=== PATIENT | female | born 1960 | race Caucasian/White ===

== ENCOUNTER → 2016-07-04 | Outpatient (CLI) | payer BC ==
--- NOTE | 2016-07-04 21:35 | CONS ---
DATE OF CONSULTATION: 07/04/2016 This patient is a 56-year-old lady who has been evaluated in the sleep center for awakenings from sleep and difficulties falling asleep again and snoring. HISTORY OF PRESENT ILLNESS/SLEEP-WAKE EVALUATION: Patient's usual sleep schedule is from 10 or 11 p.m. until 5:30 or 6 a.m. on weekdays, and from around 11 to 12 midnight until 8 or 9 a.m. on weekends. Sometimes patient has problems with falling asleep, but usually not. No TV in bedroom. Then in the middle of the night patient wakes up and cannot fall asleep again. According to her mother, she snores, has nocturia, grinding teeth. In the past patient has a history of sleeptalking and sleepwalking when she was a child. She may experience back discomfort and acid reflux. Also she has 2 dogs in her house who wake her up from sleep. No history of hypnagogic hallucinations, sleep paralysis or cataplexy. In the morning patient wakes up tired, has problems paying attention during the day. [place] Sleepiness Scale is 7. Past medical history is positive for: 1. Anxiety. 2. Brigette-Swann syndrome. 3. Hyperlipidemia. 4. Iron deficiency anemia. 5. Thyroid resection for benign nodule with apparently hypothyroidism. 6. Status post oophorectomy. 7. Menopause since age of 27. 8. History of sinusitis. PLAN: 1. Polysomnography for evaluation of patient's breathing during sleep. 2. CPAP/BiPAP titration if sleep study confirms obstructive sleep apnea-hypopnea syndrome. 3. Preferable position during sleep on the side. 4. No driving if patient feels any sleepiness. Patient is aware of civil and criminal liability for unsafe driving. 5. I will see patient for follow-up visit to explain results of the testing and following plan. 6. Stimulus control. 7. Paradoxical intention. 8. Worry time. 9. No watching clock during sleep for treatment of possible insomnia. Thank you very much for referring this patient for consultation. Sincerely, Kuldeep Tucker MD, PhD, FAASM. Diplomat of [place] [employer], Sleep Medicine Board by [place] [employer] [place] [employer] Medicine Clinical Support Manager of [facility] [place]
--- NOTE | 2016-07-04 21:48 | CONS ---
ADDENDUM: MEDICATIONS: 1. Vitamin D3. 2. Synthroid. 3. Sertraline. 4. Omeprazole. 5. Pepcid. 6. Restasis. 7. Potassium supplement. 8. Ibuprofen. 9. Calcium supplement. 10. Loratadine. 11. Alprazolam. 12. Melatonin. 13. She was on iron supplement. Presently, it was stopped. PHYSICAL EXAMINATION: GENERAL: A 56-year-old lady without distress. VITAL SIGNS: BP 135/65, HR 58, RR 16. Height 5 foot 4 inches, weight 147, BMI 25.2. Neck 13-1/2 inches in circumference. Temperature 97.9. Oxygen saturation at room air 96%. HEENT: PERRLA, EOMI. Evaluation of oropharynx showed tongue protrudes midline. Extremely low position of soft palate. NECK: Supple. No JVD. Thyroid is not palpable. LUNGS: Clear to percussion and to auscultation. Good air exchange. No wheezing or rhonchi. HEART: S1, S2 regular. No murmurs, gallops or rubs. ABDOMEN: Soft and nontender. Bowel sounds are present. No organomegaly appreciated. EXTREMITIES: No clubbing or cyanosis. PROCESS EXPERT: Awake, alert, and oriented x3. Cranial nerves 2 to 7 intact. There is no fasciculation or atrophy noted. No focal deficits observed. IMPRESSION: 1. Snoring, awakenings in the middle of the night, extremely low position of soft palate, awakenings with tiredness, difficulties to pay attention during the day, problem with memory, obstructive sleep apnea/hypopnea syndrome. 2. Difficulties to re-initiate sleep after awakenings in the middle of the night. 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 3. Hypothyroidism. 4. Brigette-Swann syndrome. 5. Hyperlipidemia. PLAN: 1. Polysomnography for evaluation of patient's breathing during sleep. 2. CPAP/BiPAP titration if sleep study confirms obstructive sleep apnea-hypopnea syndrome. 3. Preferable position during sleep on the side. 4. No driving if patient feels any sleepiness. Patient is aware of civil and criminal liability for unsafe driving. 5. I will see patient for follow-up visit to explain results of the testing and following plan. Thank you very much for allowing me to participate in the management of your patient. Sincerely, Kuldeep Tucker MD, PhD, FAASM. Diplomat of [place] [employer] Medicine, Sleep Medicine Board by [place] [employer] [place] [employer] Medicine Button Grader of [facility] [place]
--- NOTE | 2016-07-12 09:03 | CONS ---
DATE OF CONSULTATION: 07/04/2016 This patient is a 56-year-old lady who has been evaluated in the sleep center for awakenings from sleep and difficulties falling asleep again and snoring. HISTORY OF PRESENT ILLNESS/SLEEP-WAKE EVALUATION: Patient's usual sleep schedule is from 10 or 11 p.m. until 5:30 or 6 a.m. on weekdays, and from around 11 to 12 midnight until 8 or 9 a.m. on weekends. Sometimes patient has problems with falling asleep, but usually not. No TV in bedroom. Then in the middle of the night patient wakes up and cannot fall asleep again. According to her mother, she snores, has nocturia, grinding teeth. In the past patient has a history of sleeptalking and sleepwalking when she was a child. She may experience back discomfort and acid reflux. Also she has 2 dogs in her house who wake her up from sleep. No history of hypnagogic hallucinations, sleep paralysis or cataplexy. In the morning patient wakes up tired, has problems paying attention during the day. [place] Sleepiness Scale is 7. Past medical history is positive for: 1. Anxiety. 2. Brigette-Swann syndrome. 3. Hyperlipidemia. 4. Iron deficiency anemia. 5. Thyroid resection for benign nodule with apparently hypothyroidism. 6. Status post oophorectomy. 7. Menopause since age of 27. 8. History of sinusitis. MEDICATIONS: 1. Vitamin D3. 2. Synthroid. 3. Sertraline. 4. Omeprazole. 5. Pepcid. 6. Restasis. 7. Potassium supplement. 8. Ibuprofen. 9. Calcium supplement. 10. Loratadine. 11. Alprazolam. 12. Melatonin. 13. She was on iron supplement. Presently, it was stopped. PHYSICAL EXAMINATION: GENERAL: A 56-year-old lady without distress. VITAL SIGNS: BP 135/65, HR 58, RR 16. Height 5 foot 4 inches, weight 147, BMI 25.2. Neck 13-1/2 inches in circumference. Temperature 97.9. Oxygen saturation at room air 96%. HEENT: PERRLA, EOMI. Evaluation of oropharynx showed tongue protrudes midline. Extremely low position of soft palate. NECK: Supple. No JVD. Thyroid is not palpable. LUNGS: Clear to percussion and to auscultation. Good air exchange. No wheezing or rhonchi. HEART: S1, S2 regular. No murmurs, gallops or rubs. ABDOMEN: Soft and nontender. Bowel sounds are present. No organomegaly appreciated. EXTREMITIES: No clubbing or cyanosis. HAND BINDER STRIPPER: Awake, alert, and oriented x3. Cranial nerves 2 to 7 intact. There is no fasciculation or atrophy noted. No focal deficits observed. IMPRESSION: 1. Snoring, awakenings in the middle of the night, extremely low position of soft palate, awakenings with tiredness, difficulties to pay attention during the day, problem with memory, obstructive sleep apnea/hypopnea syndrome. 2. Difficulties to re-initiate sleep after awakenings in the middle of the night. 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 3. Hypothyroidism. 4. Brigette-Swann syndrome. 5. Hyperlipidemia. PLAN: 1. Polysomnography for evaluation of patient's breathing during sleep. 2. CPAP/BiPAP titration if sleep study confirms obstructive sleep apnea-hypopnea syndrome. 3. Preferable position during sleep on the side. 4. No driving if patient feels any sleepiness. Patient is aware of civil and criminal liability for unsafe driving. 5. I will see patient for follow-up visit to explain results of the testing and following plan. 6. Stimulus control. 7. Paradoxical intention. 8. Worry time. 9. No watching clock during sleep for treatment of possible insomnia. Thank you very much for referring this patient for consultation. uKldeep Tucker MD, PhD, FAASM. Diplomat of [place] [employer], Sleep Medicine Board by [place] [employer] [place] [employer] International Marketing Specialist of [facility] [place]
== END | disposition home or self-care (01) ==
LOC: SLEEP 16:19
PROVIDERS: ATTEND Internal Medicine
DX: G47.33 Obstructive sleep apnea (adult) (pediatric) (principal); G47.00 Insomnia, unspecified; E03.9 Hypothyroidism, unspecified; B27.00 Gammaherpesviral mononucleosis without complication; E78.5 Hyperlipidemia, unspecified; F41.9 Anxiety disorder, unspecified; Z90.722 Acquired absence of ovaries, bilateral; Z79.899 Other long term (current) drug therapy
CPT/HCPCS: 99211

== ENCOUNTER → 2016-09-12 | Outpatient (CLI) | payer BC ==
--- NOTE | 2016-09-12 22:48 | PN ---
DATE OF SERVICE: 09/12/2016 56-year-old lady who has been followed in the sleep center for treatment of obstructive sleep apnea-hypopnea syndrome. Recently patient had a diagnostic sleep study and I discussed results of the sleep study with the patient. Total apnea-hypopnea index during home sleep apnea test was 6.8 with lowest oxygen level 89%. Subsequently patient was started on treatment with auto Pap machine and she is able to use machine without significant problems. Sometimes she may take her mask off in the second part of the night, but otherwise she is able to use equipment. I checked her CPAP machine. Average pressure is 10.4. Patient using a 28 out of 30 nights for more than 4 hours. Average usage 6.6 hours. Leak from the mask is up to 5 L/min, which is normal acceptable range. REM time in automatic regimen humidity level is 4 presently. [place] Sleepiness Scale today is 5. MEDICATIONS: 1. Synthroid. 2. Ibuprofen. 3. Vitamin D. 4. Omeprazole. 5. Famotidine. 6. Restoril. 7. Xanax on p.r.n. basis. During physical exam, the patient in no distress. BP 123/80, HR 62, RR 16. Weight 147. Temperature 97.8. Oxygen saturation at room air 98%. HEENT: PERRLA, EOMI oropharynx low position of soft palate. Neck: Supple. No JVD. Thyroid is not palpable. LUNGS: Clear to percussion and to auscultation. Good air exchange. No wheezing or rhonchi. HEART: S1, S2 regular. No murmurs, gallops, or rubs. ABDOMEN: Soft and nontender. Bowel sounds are present. No organomegaly appreciated. EXTREMITIES: No clubbing or cyanosis. CHEMICAL DEPENDENCY THERAPIST: Awake, alert, and oriented x3. Cranial nerves 2 to 7 intact. There is no fasciculation or atrophy noted. No focal deficits observed. IMPRESSION: 1. Obstructive sleep apnea/hypopnea syndrome on control with CPAP. Patient demonstrated good compliance with treatment, benefiting from treatment. 2. Hypothyroid. 3. Acid reflux. 4. Anxiety. 5. Back problems. 6. Depression. PLAN: 1. Patient will continue to use her CPAP equipment every night for the whole night. 2. Prescription for all necessary CPAP supplies. We may consider to use nasal pillows. 3. Sleep hygiene with regular time in bed for at least 8 hours. 4. No driving if feeling any sleepiness. Thank you very much for allowing me to participate in the management your patient. Sincerely, Kuldeep Tucker MD, PhD, FAASM. Diplomat of [place] [employer] Medicine, Sleep Medicine Board by [place] [employer] [place] [employer] Medicine Cage Loader of [facility] [place]
== END | disposition home or self-care (01) ==
LOC: SLEEP 16:25
PROVIDERS: ATTEND Internal Medicine
DX: G47.33 Obstructive sleep apnea (adult) (pediatric) (principal); E03.9 Hypothyroidism, unspecified; K21.9 Gastro-esophageal reflux disease without esophagitis; F41.9 Anxiety disorder, unspecified; F32.9 Major depressive disorder, single episode, unspecified; Z79.899 Other long term (current) drug therapy

== ENCOUNTER → 2016-11-25 | Outpatient (CLI) | payer BC | END | disposition home or self-care (01) | LOC: LABWHC1 07:12 | PROVIDERS: ATTEND Internal Medicine Endocrinology, Diabetes & Metabolism | DX: E89.0 Postprocedural hypothyroidism (principal); E55.9 Vitamin D deficiency, unspecified | CPT/HCPCS: 36415; 82306; 84439; 84443 ==

== ENCOUNTER → 2017-01-30 | Outpatient (CLI) | payer BC | END | disposition home or self-care (01) | LOC: LABWHC1 13:42 | PROVIDERS: ATTEND Internal Medicine Endocrinology, Diabetes & Metabolism | DX: E55.9 Vitamin D deficiency, unspecified (principal); E89.0 Postprocedural hypothyroidism | CPT/HCPCS: 36415; 82306; 84439; 84443 ==

== ENCOUNTER → 2017-05-13 | Outpatient (CLI) | payer BC | END | disposition home or self-care (01) | LOC: LABWHC1 07:14 | PROVIDERS: ATTEND Internal Medicine Endocrinology, Diabetes & Metabolism | DX: E55.9 Vitamin D deficiency, unspecified (principal); E89.0 Postprocedural hypothyroidism | CPT/HCPCS: 36415; 82306; 84439; 84443 ==

== ENCOUNTER → 2017-06-24 | Outpatient (CLI) | payer BC ==
--- NOTE | 2017-06-25 09:29 | MM ---
Reason for exam: screening (asymptomatic). Last mammogram was performed 1 year ago. History: Patient is postmenopausal and is nulliparous. Took estrogen for 15 years. Took progesterone for 15 years. Physical Findings: A clinical breast exam by your physician is recommended on an annual basis and results should be correlated with mammographic findings. MG Screening Mammo w CAD Bilateral CC and MLO view(s) were taken. Prior study comparison: June 18, 2016, bilateral MG 3d screening mammo w/cad. June 13, 2015, bilateral MG screening mammo w CAD. There are scattered fibroglandular densities. No significant changes when compared with prior studies. ASSESSMENT: Benign, BI-RAD 2 RECOMMENDATION: Routine screening mammogram of both breasts in 1 year.
== END | disposition home or self-care (01) ==
LOC: RADMAMWWP 08:04
PROVIDERS: ATTEND Obstetrics & Gynecology
DX: Z12.31 Encounter for screening mammogram for malignant neoplasm of breast (principal)
CPT/HCPCS: 77067

== ENCOUNTER → 2017-09-18 | Outpatient (CLI) | payer BC ==
--- NOTE | 2017-09-18 18:30 | PN ---
PROGRESS NOTE DATE OF SERVICE: 09/18/2017 This patient is a 57-year-old lady who has been followed in the sleep center for treatment of obstructive sleep apnea-hypopnea syndrome. The patient successfully is continuing to use her CPAP equipment without significant problems. [place] Sleepiness Scale today is 7. I checked her CPAP unit. Usage is every night with average usage 5.1 hours. Usage for more than 4 hours is in the range of 70% of the time. Most of the time pressure is in the range of 9.5 cm of water. Range of the pressure is from 5-12. Leak is only 5 L/minute. Apnea-hypopnea index is only 1.2, which is totally perfect. MEDICATIONS: 1. Celexa. 2. Iron supplement. 3. Restasis. 4. B12. 5. Potassium supplement. 6. Multivitamins. PHYSICAL EXAMINATION: GENERAL A pleasant woman in no distress. VITAL SIGNS: BP 138/73, HR 56, RR 16, height 5 feet 4 inches, weight 151, BMI 25.9, temperature 97.6, oxygen saturation at room air 94%. HEENT: PERRLA, EOMI. Evaluation of oropharynx showed tongue protrudes midline; low position of soft palate. NECK: Supple. No JVD. Thyroid is not palpable. LUNGS: Clear to percussion and to auscultation. Good air exchange. No wheezing or rhonchi. HEART: S1, S2 regular. No murmurs, gallops or rubs. ABDOMEN: Soft and nontender. Bowel sounds are present. No organomegaly appreciated. EXTREMITIES : No clubbing or cyanosis. DIRECTOR OF OUTSIDE SALES: Awake, alert, and oriented X3. Cranial nerves 2 to 7 intact. There is no fasciculation or atrophy. noted. No focal deficits observed. IMPRESSION: 1. Obstructive sleep apnea-hypopnea syndrome, controlled with CPAP, average pressure 9.5 cm of water. Patient demonstrated good compliance with treatment and is benefitting from treatment. 2. History of depression. 3. Hypothyroidism. 4. Acid reflux. 5. History of anxiety. 6. Back problems. PLAN: 1. Continue treatment with CPAP with the same regimen every night for the whole night. 2. Prescription for all necessary CPAP supplies, including mask, tube, filters. 3. Watching weight. 4. No driving if feeling any sleepiness. 5. Follow-up visit in one year or earlier if patient has any problems. Thank you very much for allowing me to participate in the management of your patient. Sincerely, Kuldeep Tucker MD, PhD, FAASM Diplomat of [place] Special[employer] Board of Internal Medicine Storeroom Keeper of [facility] [place] MMFRANCOISE / URIEL: [id number] /
== END | disposition home or self-care (01) ==
LOC: SLEEP 16:21
PROVIDERS: ATTEND Internal Medicine
DX: G47.33 Obstructive sleep apnea (adult) (pediatric) (principal); E78.5 Hyperlipidemia, unspecified; K21.9 Gastro-esophageal reflux disease without esophagitis; M79.89 Other specified soft tissue disorders; Z99.89 Dependence on other enabling machines and devices; Z79.899 Other long term (current) drug therapy; Z86.59 Personal history of other mental and behavioral disorders

== ENCOUNTER → 2017-09-19 | Outpatient (CLI) | payer BC ==
--- NOTE | 2017-09-19 12:40 | ECHOS ---
STRESS ECHOCARDIOGRAM DATE OF SERVICE: 09/19/2017 INDICATIONS: Chest pain. MEDICATIONS: BASELINE HEART RATE: 66 BASELINE BLOOD PRESSURE: 90/47 MAXIMUM HEART RATE: 142 MAXIMUM BLOOD PRESSURE: 148/71 85% MPHR: 137 100% MPHR: 161 METS: 10.1 MAXIMUM STAGE REACHED: III TOTAL EXERCISE TIME: 9 minutes CLINICAL INFORMATION: Baseline EKG revealed a sinus mechanism without significant ST-T changes. There was some baseline artifact noted. Patient walked on a standard Rodriguez protocol for 9 minutes, achieved a maximum heart rate of 142 beats per minute which is more than 85% of predicted maximal. Developed fatigue and shortness of breath. EKG did not reveal any ST-segment changes to indicate ischemia. This is a negative stress test by EKG criteria. Baseline echo images revealed normal wall motion and wall thickening of all segments. At peak exercise, there was good augmentation of left ventricular wall motion and wall thickening of all segments suggesting that there is no evidence of any stress-induced ischemia on this study. IMPRESSION: 1. Fair exercise capacity with a negative stress test by EKG criteria. 2. Normal stress echocardiogram. MMODL / IJN: [id number] /
== END | disposition home or self-care (01) ==
LOC: RADNMMAIN 09:41
PROVIDERS: ATTEND Family Medicine
DX: R07.89 Other chest pain (principal)
CPT/HCPCS: 93017; 93350

== ENCOUNTER 2017-09-30 17:05 | Observation (INO) | payer BC ==
[2017-09-30] MEDS ORDERED: SODIUM CHLORIDE 0.9% 1,000 ML IV STA (17:40)
[2017-09-30] MEDS ORDERED: RX INFO: IV CONTRAST WAS GIVEN 1 EACH MISC MISCELLANE PRN (17:40)
--- NOTE | 2017-09-30 17:45 | ED ---
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 She believes it lasted only short period time she has been having episodes recently of mixing up words up for last month she did state she saw her doctor by week ago some EKG changes were noted that indicated enlargement left side of the heart stress test was done and apparently it looked normal. She complains some lightheadedness and blurred vision along with the symptoms today. She also states recently she's had some discomfort in the left side of her head she describes as tension tightness perhaps some achiness. She also is been tired recently no fevers chills nausea vomiting sweats no other symptoms reported at this time. No other modifying factors. She has no prior history of strokes or heart disease she has of a history of secondhand smoke exposure with very brief primary smoke exposure - Related Data Home Medications: Home Medications Medication Instructions Recorded Confirmed ALPRAZolam [Xanax] 0.25 mg PO DAILY PRN 09/30/17 09/30/17 Cholecalciferol [Vitamin D3] 5,000 unit PO DAILY 09/30/17 09/30/17 Citalopram Hydrobromide [CeleXA] 20 mg PO HS 09/30/17 09/30/17 Famotidine [Pepcid] 20 mg PO DAILY 09/30/17 09/30/17 Ferrous Sulfate [Feosol] 325 mg PO DAILY 09/30/17 09/30/17 Ginkgo Biloba 500 mg PO DAILY 09/30/17 09/30/17 Ibuprofen [Motrin Ib] 600 mg PO TID PRN 09/30/17 09/30/17 Levothyroxine Sodium [Synthroid] 100 mcg PO DAILY 09/30/17 09/30/17 Multivitamins, Thera [Multivitamin 1 tab PO DAILY 09/30/17 09/30/17 (formulary)] Omeprazole 20 mg PO HS 09/30/17 09/30/17 Potassium Citrate [Potassium 10 meq PO DAILY 09/30/17 09/30/17 Citrate ER] Vitamin B Complex 1 cap PO DAILY 09/30/17 09/30/17 cycloSPORINE 0.05% OPHTH SOLN 1 applicator BOTH EYES BID 09/30/17 09/30/17 [Restasis] Allergies/Adverse Reactions: Allergies Allergy/AdvReac Type Severity Reaction Status Date / Time No Known Allergies Allergy Verified 09/30/17 18:04 Review of Systems ROS Statement: Those systems with pertinent positive or pertinent negative responses have been documented in the HPI. ROS Other: All systems not noted in ROS Statement are negative. General Exam - General Exam Comments Initial Comments: This is a well-developed well-nourished awake alert oriented 3 female Limitations: no limitations General appearance: alert, in no apparent distress Head exam: Present: atraumatic, normocephalic, normal inspection Eye exam: Present: normal appearance, PERRL, EOMI. Absent: scleral icterus, conjunctival injection, periorbital swelling ENT exam: Present: normal exam, mucous membranes moist Neck exam: Present: normal inspection. Absent: tenderness, meningismus, lymphadenopathy Respiratory exam: Present: normal lung sounds bilaterally. Absent: respiratory distress, wheezes, rales, rhonchi, stridor Cardiovascular Exam: Present: regular rate, normal rhythm, normal heart sounds. Absent: systolic murmur, diastolic murmur, rubs, gallop, clicks GI/Abdominal exam: Present: soft, normal bowel sounds. Absent: distended, tenderness, guarding, rebound, rigid Extremities exam: Present: normal inspection, full ROM, normal capillary refill. Absent: tenderness, pedal edema, joint swelling, calf tenderness Back exam: Present: normal inspection Neurological exam: Present: alert, oriented X3, CN II-XII intact Psychiatric exam: Present: normal affect, normal mood Skin exam: Present: warm, dry, intact, normal color. Absent: rash Stroke MDM - Lab Data Result diagrams: 09/30/17 17:35 09/30/17 17:35 Lab Results 09/30/17 09/30/17 09/30/17 Range/Units 17:35 17:35 17:35 WBC 4.8 (3.8-10.6) k/uL RBC 4.30 (3.80-5.40) m/uL Hgb 12.5 (11.4-16.0) gm/dL Hct 36.2 (34.0-46.0) % MCV 84.1 (80.0-100.0) fL MCH 29.1 (25.0-35.0) pg MCHC 34.5 (31.0-37.0) g/dL RDW 12.6 (11.5-15.5) % Plt Count 268 (150-450) k/uL Neutrophils % 47 % Lymphocytes % 38 % Monocytes % 8 % Eosinophils % 3 % Basophils % 1 % Neutrophils # 2.3 (1.3-7.7) k/uL Lymphocytes # 1.8 (1.0-4.8) k/uL Monocytes # 0.4 (0-1.0) k/uL Eosinophils # 0.1 (0-0.7) k/uL Basophils # 0.0 (0-0.2) k/uL PT (9.0-12.0) sec INR (<1.2) APTT (22.0-30.0) sec Sodium 144 (137-145) mmol/L Potassium 3.6 (3.5-5.1) mmol/L Chloride 108 H (98-107) mmol/L Carbon Dioxide 23 (22-30) mmol/L Anion Gap 13 mmol/L BUN 26 H (7-17) mg/dL Creatinine 0.60 (0.52-1.04) mg/dL Est GFR (CKD-EPI)AfAm >90 (>60 ml/min/1.73 sqM) Est GFR (CKD-EPI)NonAf >90 (>60 ml/min/1.73 sqM) Glucose 87 (74-99) mg/dL Calcium 9.7 (8.4-10.2) mg/dL Magnesium 2.2 (1.6-2.3) mg/dL Total Bilirubin 0.3 (0.2-1.3) mg/dL AST 21 (14-36) U/L ALT 25 (9-52) U/L Alkaline Phosphatase 71 (38-126) U/L Total Creatine Kinase 129 (30-135) U/L CK-MB (CK-2) 0.6 (0.0-2.4) ng/mL CK-MB (CK-2) Rel Index 0.5 Troponin I <0.012 (0.000-0.034) ng/mL Total Protein 6.9 (6.3-8.2) g/dL Albumin 4.2 (3.5-5.0) g/dL TSH 0.409 L (0.465-4.680) mIU/L Free T4 1.36 (0.78-2.19) ng/dL Urine Color Urine Appearance (Clear) Urine pH (5.0-8.0) Ur Specific [place] (1.001-1.035) Urine Protein (Negative) Urine Glucose (UA) (Negative) Urine Ketones (Negative) Urine Blood (Negative) Urine Nitrite (Negative) Urine Bilirubin (Negative) Urine Urobilinogen (<2.0) mg/dL Ur Leukocyte Esterase (Negative) Urine RBC (0-5) /hpf Urine WBC (0-5) /hpf Ur Squamous Epith Cells (0-4) /hpf Urine Mucus (None) /hpf 09/30/17 09/30/17 Range/Units 17:35 17:35 WBC (3.8-10.6) k/uL RBC (3.80-5.40) m/uL Hgb (11.4-16.0) gm/dL Hct (34.0-46.0) % MCV (80.0-100.0) fL MCH (25.0-35.0) pg MCHC (31.0-37.0) g/dL RDW (11.5-15.5) % Plt Count (150-450) k/uL Neutrophils % % Lymphocytes % % Monocytes % % Eosinophils % % Basophils % % Neutrophils # (1.3-7.7) k/uL Lymphocytes # (1.0-4.8) k/uL Monocytes # (0-1.0) k/uL Eosinophils # (0-0.7) k/uL Basophils # (0-0.2) k/uL PT 9.8 (9.0-12.0) sec INR 1.0 (<1.2) APTT 23.8 (22.0-30.0) sec Sodium (137-145) mmol/L Potassium (3.5-5.1) mmol/L Chloride (98-107) mmol/L Carbon Dioxide (22-30) mmol/L Anion Gap mmol/L BUN (7-17) mg/dL Creatinine (0.52-1.04) mg/dL Est GFR (CKD-EPI)AfAm (>60 ml/min/1.73 sqM) Est GFR (CKD-EPI)NonAf (>60 ml/min/1.73 sqM) Glucose (74-99) mg/dL Calcium (8.4-10.2) mg/dL Magnesium (1.6-2.3) mg/dL Total Bilirubin (0.2-1.3) mg/dL AST (14-36) U/L ALT (9-52) U/L Alkaline Phosphatase (38-126) U/L Total Creatine Kinase (30-135) U/L CK-MB (CK-2) (0.0-2.4) ng/mL CK-MB (CK-2) Rel Index Troponin I (0.000-0.034) ng/mL Total Protein (6.3-8.2) g/dL Albumin (3.5-5.0) g/dL TSH (0.465-4.680) mIU/L Free T4 (0.78-2.19) ng/dL Urine Color Yellow Urine Appearance Clear (Clear) Urine pH 6.0 (5.0-8.0) Ur Specific [place] 1.022 (1.001-1.035) Urine Protein Trace H (Negative) Urine Glucose (UA) Negative (Negative) Urine Ketones Negative (Negative) Urine Blood Negative (Negative) Urine Nitrite Negative (Negative) Urine Bilirubin Negative (Negative) Urine Urobilinogen <2.0 (<2.0) mg/dL Ur Leukocyte Esterase Trace H (Negative) Urine RBC 1 (0-5) /hpf Urine WBC <1 (0-5) /hpf Ur Squamous Epith Cells 1 (0-4) /hpf Urine Mucus Few H (None) /hpf - NIH Stroke Scale 1a. Level of Consciousness: (0) alert 1b. LOC Questions: (0) answers correctly 1c. LOC Commands: (0) performs tasks correctly 2. Best Gaze: (0) normal 3. Visual: (0) no visual loss 4. Facial Palsy: (0) normal symmetrical movement 5a. Motor Arm Left: (0) no drift 5b. Motor Arm Right: (0) no drift 6a. Motor Leg Left: (0) no drift 6b. Motor Leg Right: (0) no drift 7. Limb Ataxia: (0) absent 8. Sensory: (0) normal 9. Best Language: (0) no aphasia 10. Dysarthria: (0) normal 11. Extinction/Inattention: (0) no abnormality - Thrombolytic Inclusion/Exclusion Thrombolytic Contraindications: Rapidly Improving s/s - Medical Decision Making Patient is evidence for no further symptoms he presentation is consistent with a TIA I did discuss Pfizer her and her friend was present as well as Dr. Liu will be admitted with neurological consultation. - Radiology Data Radiology results: report reviewed, image reviewed - EKG Data -: EKG Interpreted by Me EKG shows normal: sinus rhythm (Sinus bradycardia rate of 54 WI interval 192 QRS duration 90 QT since QTC 40/455 poor R-wave progression.) Past Medical History Past Medical History: Chest Pain / Angina, GERD/Reflux, Thyroid Disorder Additional Past Medical History / Comment(s): Chronic Fatigue, [place], Past Surgical History: Hernia Repair Additional Past Surgical History / Comment(s): thyroidedectomy, laparascopy, stress test Past Psychological History: No Psychological Hx Reported Smoking Status: Never smoker Past Alcohol Use History: Occasional Past Drug Use History: None Reported Course Vital Signs 09/30/17 09/30/17 09/30/17 17:11 19:04 20:29 Temperature 98.9 F 98.6 F Pulse Rate 60 63 59 L Respiratory 18 16 18 Rate Blood Pressure 189/90 162/85 167/77 O2 Sat by Pulse 98 98 99 Oximetry Disposition Clinical Impression: Transient cerebral ischemia Disposition: ADMITTED IP TO THIS [facility] Condition: Stable Referrals: Geovani Garner DO [Primary Care Provider] - 1-2 days
[2017-09-30 18:02] LABS: Basophils % (A) 1 %; Eosinophils # (A) 0.1 k/uL (0-0.7); Eosinophils % (A) 3 %; HCT 36.2 % (34.0-46.0); HGB 12.5 gm/dL (11.4-16.0); Lymphocytes # (A) 1.8 k/uL (1.0-4.8); Lymphocytes % (A) 38 %; MCH 29.1 pg (25.0-35.0); MCHC 34.5 g/dL (31.0-37.0); MCV 84.1 fL (80.0-100.0); Mean Platelet Volume 6.8; Monocytes # (A) 0.4 k/uL (0-1.0); Monocytes % (A) 8 %; Neutrophils # (A) 2.3 k/uL (1.3-7.7); Neutrophils % (A) 47 %; Platelet Count 268 k/uL (150-450); RDW 12.6 % (11.5-15.5); WBC 4.8 k/uL (3.8-10.6)
[2017-09-30 18:03] LABS: Appearance,Urine Clear (Clear); Bilirubin,Urine Negative (Negative); Blood,Urine Negative (Negative); Color,Urine Yellow; Glucose,Urine (UA) Negative (Negative); Ketones,Urine Negative (Negative); Leukocyte Esterase,Urine Trace (Negative); Mucus,Urine Few /hpf; Nitrite,Urine Negative (Negative); Protein,Urine Trace (Negative); RBC,Urine 1 /hpf (0-5); Specific Gravity,Urine 1.022 (1.001-1.035); Squamous Epithelial Cell,Urine 1 /hpf (0-4); Urobilinogen,Urine <2.0 mg/dL (<2.0); WBC,Urine <1 /hpf (0-5)
[2017-09-30 18:08] LABS: Partial Thromboplastin Time 23.8 sec (22.0-30.0); Prothrombin Time 9.8 sec (9.0-12.0)
[2017-09-30 18:15] LABS: ALT 25 U/L (9-52); AST 21 U/L (14-36); Albumin 4.2 g/dL (3.5-5.0); Alkaline Phosphatase 71 U/L (38-126); Anion Gap 13 mmol/L; Blood Urea Nitrogen 26 mg/dL (7-17); Calcium 9.7 mg/dL (8.4-10.2); Carbon Dioxide 23 mmol/L (22-30); Chloride 108 mmol/L (98-107); Glucose 87 mg/dL (74-99); Magnesium 2.2 mg/dL (1.6-2.3); Potassium 3.6 mmol/L (3.5-5.1); Sodium 144 mmol/L (137-145); Total Bilirubin 0.3 mg/dL (0.2-1.3); Total Protein 6.9 g/dL (6.3-8.2)
[2017-09-30 18:23] LABS: Creatine Kinase 129 U/L (30-135)
[2017-09-30 18:36] LABS: Creatine Kinase MB 0.6 ng/mL (0.0-2.4); Troponin I <0.012 ng/mL (0.000-0.034)
[2017-09-30 19:12] LABS: T4, Free (Free Thyroxine) 1.36 ng/dL (0.78-2.19)
--- NOTE | 2017-09-30 19:26 | CT ---
EXAMINATION TYPE: CT brain wo con DATE OF EXAM: 09/30/2017 COMPARISON: NONE HISTORY: Dizziness and difficulty speaking CT DLP: 943.8 mGycm Automated exposure control for dose reduction was used. FINDINGS: Ventricles have normal size. There is no mass effect nor midline shift. There is no sign of intracran ial hemorrhage. The calvarium is intact. IMPRESSION: NEGATIVE CT SCAN OF THE BRAIN.
--- NOTE | 2017-09-30 19:26 | XR ---
EXAMINATION TYPE: XR chest 2V DATE OF EXAM: 09/30/2017 COMPARISON: NONE HISTORY: Altered mental status TECHNIQUE: Frontal and lateral views of the chest are obtained. FINDINGS: There is no heart failure nor confluent pneumonic infiltrate. Costophrenic angles are isidoro r. There are chest leads. Bony thorax is intact. IMPRESSION: No active cardiopulmonary disease.
--- NOTE | 2017-09-30 20:12 | CT ---
EXAMINATION TYPE: CT angio head neck DATE OF EXAM: 09/30/2017 HISTORY: Dizziness and difficulty speaking COMPARISON: NONE CT DLP: 230.5 mGycm. Automated Exposure Control for Dose Reduction was Utilized. TECHNIQUE: CTA scan of the neck and brain is performed with IV Contrast, patient injected with 65 mL of Isovue 370, axial images are obtained, coronal and sagittal reformatted images are reviewed. Thre e-D reconstructed images are created on an independent workstation and reviewed. FINDINGS: There is normal branching pattern of the great vessels on the aortic arch. There is bilateral arteria l flow in the vertebral arteries which are fairly symmetric. There is bilateral arterial flow in the internal and external carotid arteries. There is some 25% mil d narrowing at the posterior wall proximal left internal carotid artery. There is no significant narr owing at the right carotid artery bifurcation. There is no sign of carotid dissection. There is arterial flow in the vertebrobasilar artery system. There is arterial flow in the anterior m iddle and posterior cerebral arteries. I see no evidence of intracranial aneurysm or neovascularity. There is normal contrast opacification of the venous sinuses. There is no sign of spasm. I see no hem odynamically significant stenosis in the intracranial arteries. CONCLUSION: There is minimal 25% narrowing of the proximal left internal carotid artery. No evidence of hemodynam ically significant stenosis. Negative CT angiogram of the brain.
[2017-09-30] MEDS ORDERED: ALPRAZolam 0.25 MG TAB PO STA (20:53)
[2017-09-30] MEDS ORDERED: PANTOPRAZOLE 40 MG TABLET PO STA (20:53)
[2017-09-30] MEDS ORDERED: CITALOPRAM HYDROBROMIDE 20 MG TAB PO STA (20:56)
[2017-09-30] MEDS ORDERED: ALPRAZolam 0.25 MG TAB PO PRN (21:07)
[2017-09-30] MEDS ORDERED: IBUPROFEN 600 MG TAB PO PRN (21:07)
[2017-09-30 22:27] VITALS: BMI 25.7
--- NOTE | 2017-10-01 02:22 | P.HPIM ---
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 Patient was unable to complete sentences and difficulty finding words and mixing up words. Patient was also having some blurry vision at that time. Symptoms last about few minutes. Currently patient denied any difficulty in finding words are slurred speech. Patient was having episodes of mixing up words recently for about a month and seen his heart primary care physician. Patient had EKG and also patient underwent stress test which was normal as per patient. Patient otherwise denied any chest discomfort or shortness of breath. Patient was having headache recently. Denied any recent illnesses or sick contacts. No fever no chills. No nausea vomiting or abdominal pain no diarrhea. No history of previous stroke. CT head showed no acute intracranial process CT angiogram showed minimal 25% narrowing of the internal carotid artery. No evidence of hemodynamically significant stenosis. Chest x-ray showed no acute process EKG showed sinus bradycardia TSH 0.409 Free T4 1.36 Review of Systems Constitutional: Patient denies any fever or chills . No generalized weakness or weight loss. Abdomen: Patient denied nausea vomiting and diarrhea and abdominal pain. Cardiovascular: Patient denies any chest pain or short of breath no palpitations. Respiratory: patient denied any cough is from production. No shortness of breath Neurologic: Patient denied any numbness or tingling. No headache currently . Slurred speech and difficulty finding words on admission Musculoskeletal: Patient denies any complaints of joint swelling or deformity. Skin: Negative Psychiatric: Negative Endocrine: No heat or cold intolerance. No recent weight gain. Genitourinary: No dysuria or hematuria. All other 14 point ROS negative except the above Past Medical History Past Medical History: Chest Pain / Angina, GERD/Reflux, Thyroid Disorder Additional Past Medical History / Comment(s): Chronic Fatigue, [place], History of Any Multi-Drug Resistant Organisms: None Reported Past Surgical History: Hernia Repair, Orthopedic Surgery Additional Past Surgical History / Comment(s): thyroidedectomy, laparascopy, stress test, LEFT WRIST SX Past Psychological History: Anxiety Smoking Status: Never smoker Past Alcohol Use History: Occasional Past Drug Use History: None Reported - Past Family History Mother Family Medical History: Coronary Artery Disease (CAD), Hyperlipidemia, Hypertension Medications and Allergies Home Medications Medication Instructions Recorded Confirmed Type ALPRAZolam [Xanax] 0.25 mg PO DAILY PRN 09/30/17 09/30/17 History Cholecalciferol [Vitamin D3] 5,000 unit PO DAILY 09/30/17 09/30/17 History Citalopram Hydrobromide [CeleXA] 20 mg PO HS 09/30/17 09/30/17 History Famotidine [Pepcid] 20 mg PO DAILY 09/30/17 09/30/17 History Ferrous Sulfate [Feosol] 325 mg PO DAILY 09/30/17 09/30/17 History Ginkgo Biloba 500 mg PO DAILY 09/30/17 09/30/17 History Ibuprofen [Motrin Ib] 600 mg PO TID PRN 09/30/17 09/30/17 History Levothyroxine Sodium [Synthroid] 100 mcg PO DAILY 09/30/17 09/30/17 History Multivitamins, Thera [Multivitamin 1 tab PO DAILY 09/30/17 09/30/17 History (formulary)] Omeprazole 20 mg PO HS 09/30/17 09/30/17 History Potassium Citrate [Potassium 10 meq PO DAILY 09/30/17 09/30/17 History Citrate ER] Vitamin B Complex 1 cap PO DAILY 09/30/17 09/30/17 History cycloSPORINE 0.05% OPHTH SOLN 1 applicator BOTH EYES BID 09/30/17 09/30/17 History [Restasis] Allergies Allergy/AdvReac Type Severity Reaction Status Date / Time No Known Allergies Allergy Verified 09/30/17 18:04 Physical Exam Vitals: Vital Signs Temp Pulse Resp BP Pulse Ox 09/30/17 21:51 97.9 F 89 18 159/82 98 09/30/17 21:32 61 18 156/90 97 09/30/17 20:29 98.6 F 59 L 18 167/77 99 09/30/17 19:04 63 16 162/85 98 09/30/17 17:11 98.9 F 60 18 189/90 98 Intake and Output 09/30/17 09/30/17 09/30/17 06:59 14:59 22:59 Other: Weight 68.03 kg PHYSICAL EXAMINATION: Patient is lying in the bed comfortably, no acute distress, awake alert and oriented.. HEENT: Normocephalic. Neck is supple. Pupils reactive. Nostrils clear. Oral cavity is moist. Ears reveal no drainage. Neck reveals no JVD, carotid bruits, or thyromegaly. CHEST EXAMINATION: Trachea is central. Symmetrical expansion. Lung la clear to auscultation and percussion. CARDIAC: Normal S1, S2 with no gallops. No murmurs ABDOMEN: Soft. Bowel sounds normal. No organomegaly. No abdominal bruits. Extremities: reveal no edema. No clubbing or cyanosis Neurologically awake, alert, oriented x3 with well-coordinated movements. No focal deficits noted Skin: No rash or skin lesions. Psychiatric: Coperative. Nonsuicidal Musculoskeletal: No joint swelling or deformity. Normal range of motion. Results CBC & Chem 7: 09/30/17 17:35 09/30/17 17:35 Labs: Abnormal Lab Results - Last 24 Hours (Table) 09/30/17 09/30/17 Range/Units 17:35 17:35 Chloride 108 H (98-107) mmol/L BUN 26 H (7-17) mg/dL TSH 0.409 L (0.465-4.680) mIU/L Urine Protein Trace H (Negative) Ur Leukocyte Esterase Trace H (Negative) Urine Mucus Few H (None) /hpf Thrombosis Risk Factor Assmnt - DVT/VTE Prophylaxis DVT/VTE Prophylaxis: Pharmacologic Prophylaxis ordered - Choose All That Apply Any of the Below Risk Factors Present?: Yes Each Factor Represents 1 point: Age 41-60 years, Obesity (BMI >25) Thrombosis Risk Factor Assessment Total Risk Factor Score: 2 Thrombosis Risk Factor Assessment Level: Low Risk Assessment and Plan Assessment: Slurred speech and expressive aphasia likely TIA resolved at this time anxiety/depression, GERD, hypothyroidism, iron deficiency anemia and history of infectious mononucleosis DVT prophylaxis Plan: Patient will be started on aspirin daily. We will get 2-D echo and carotid duplex. Neurology will be consulted. Continue the telemetry monitoring and follow up closely. Further recommendations based on the clinical course. Time with Patient: Greater than 30
[2017-10-01] MEDS ORDERED: LEVOTHYROXINE 100 MCG TAB PO SCH (06:30)
[2017-10-01 07:06] LABS: Cholesterol 194 mg/dL (<200); HDL Cholesterol 54 mg/dL (40-60); LDL Cholesterol,Calculated 117 mg/dL (0-99); Triglycerides 114 mg/dL (<150)
[2017-10-01] MEDS ORDERED: B COMPLEX-VIT C-VIT E-ZINC 1 EACH TAB PO SCH (09:00)
[2017-10-01] MEDS ORDERED: cycloSPORINE 0.05% OPHTH 0.4 ML DROPERETTE BOTH EYES SCH (09:00)
[2017-10-01] MEDS ORDERED: NON-FORMULARY DRUG (Ginkgo Biloba [Ginkgo Biloba] 500 MG) PO SCH (09:00)
[2017-10-01] MEDS ORDERED: FAMOTIDINE 20 MG TAB PO SCH (09:00)
[2017-10-01] MEDS ORDERED: ASPIRIN 325 MG TAB PO SCH (09:00)
[2017-10-01] MEDS ORDERED: POTASSIUM CITRATE 10 MEQ TABLET.ER PO SCH (09:00)
[2017-10-01] MEDS ORDERED: FERROUS SULFATE 325 MG TAB PO SCH (09:00)
--- NOTE | 2017-10-01 09:53 | ECHOF ---
Referral Reason:TIA MEASUREMENTS -------- HEIGHT: 162.6 cm WEIGHT: 68.5 kg BP: 109/62 IVSd: 1.0 cm (0.6 - 1.1) LVIDd: 4.4 cm (3.9 - 5.3) LVPWd: 1.1 cm (0.6 - 1.1) IVSs: 1.8 cm LVIDs: 2.1 cm LVPWs: 1.7 cm Ao Diam: 2.8 cm (2.0 - 3.7) AV Cusp: 2.1 cm (1.5 - 2.6) LA Diam: 3.1 cm (2.7 - 3.8) MV EXCURSION: 15.618 mm (> 18.000) MV EF SLOPE: 226 mm/s (70 - 150) EPSS: 0.5 cm MV E Jc: 0.93 m/s MV DecT: 230 ms MV A Jc: 0.73 m/s MV E/A Ratio: 1.27 RAP: 5.00 mmHg RVSP: 27.79 mmHg FINDINGS -------- Sinus rhythm. This was a technically good study. The left ventricular size is normal. Left ventricular wall thickness is normal. Overall left vent ricular systolic function is normal with, an EF between 55 - 60 %. The right ventricle is normal in size and function. The left atrium is normal in size. The right atrium is normal in size. The aortic valve is trileaflet, and appears structurally normal. No aortic stenosis or regurgitation. There is trace mitral regurgitation. Trace tricuspid regurgitation present. The right ventricular systolic pressure, as measured by Dopp ler, is 27.79mmHg. Pulmonic valve appears structurally normal. The aortic root size is normal. Normal inferior vena cava with normal inspiratory collapse consistent with estimated right atrial pre ssure of 5 mmHg. The pericardium is normal. CONCLUSIONS -------- 1. Sinus rhythm. 2. This was a technically good study. 3. The left ventricular size is normal. 4. Left ventricular wall thickness is normal. 5. Overall left ventricular systolic function is normal with, an EF between 55 - 60 %. 6. The right ventricle is normal in size and function. 7. The left atrium is normal in size. 8. The right atrium is normal in size. 9. The aortic valve is trileaflet, and appears structurally normal. No aortic stenosis or regurgitati on. 10. There is trace mitral regurgitation. 11. Trace tricuspid regurgitation present. 12. The right ventricular systolic pressure, as measured by Doppler, is 27.79mmHg. 13. Pulmonic valve appears structurally normal. 14. The aortic root size is normal. 15. Normal inferior vena cava with normal inspiratory collapse consistent with estimated right atrial pressure of 5 mmHg. 16. The pericardium is normal. CLIENT CARE MANAGER: Wen Live RDCS
[2017-10-01] MEDS ORDERED: MULTIVITAMINS, THERA 1 EACH TAB PO SCH (12:00)
[2017-10-01] MEDS ORDERED: CHOLECALCIFEROL 1,000 UNIT TAB PO SCH (12:00)
[2017-10-01] MEDS ORDERED: ACETAMINOPHEN TAB 325 MG TAB PO PRN (16:09)
[2017-10-01 17:36] VITALS: BP 123/80; PULSE 64; RESP 18; TEMP 98.1
[2017-10-01] MEDS ORDERED: CITALOPRAM HYDROBROMIDE 20 MG TAB PO SCH (21:00)
[2017-10-01] MEDS ORDERED: PANTOPRAZOLE 40 MG TABLET PO SCH (21:00)
--- NOTE | 2017-10-01 21:07 | P.DS ---
Providers Date of admission: 09/30/17 21:04 Expected date of discharge: 10/01/17 Attending physician: Margot Liu Consults: 09/30/17 21:05 Consult Physician Routine Consulting Provider: Gonzalo Burris Consult Reason/Comments: TIA Do you want consulting provider notified?: Yes Primary care physician: Geovani Garner [facility] Course: Discharge diagnosis Slurred speech and expressive aphasia likely TIA resolved at this time anxiety/depression, GERD, hypothyroidism, iron deficiency anemia and history of infectious mononucleosis DVT prophylaxis Hospital course Patient is a 57-year-old female with a known history of anxiety/depression, GERD , hypothyroidism, iron deficiency anemia and history of infectious mononucleosis presented to Hospital with complaints of slurred speech and also unable to find words/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 Patient was unable to complete sentences and difficulty finding words and mixing up words. Patient was also having some blurry vision at that time. Symptoms last about few minutes. Currently patient denied any difficulty in finding words are slurred speech. Patient was having episodes of mixing up words recently for about a month and seen his heart primary care physician. Patient had EKG and also patient underwent stress test which was normal as per patient. Patient otherwise denied any chest discomfort or shortness of breath. Patient was having headache recently. Denied any recent illnesses or sick contacts. No fever no chills. No nausea vomiting or abdominal pain no diarrhea. No history of previous stroke. CT head showed no acute intracranial process CT angiogram showed minimal 25% narrowing of the internal carotid artery. No evidence of hemodynamically significant stenosis. Chest x-ray showed no acute process EKG showed sinus bradycardia TSH 0.409 Free T4 1.36 Patient was started on aspirin daily. Continue with telemetry monitoring. 2-D echo showed normal ejection fraction. Patient was seen by speech swallow evaluation and no abnormalities have been identified. Patient was seen by neurology. Recommended to continue with aspirin and statins. Follow the neurology clinic and Primary physician in 1-3 days. Otherwise patient is a symptomatic at this time. Stable to be discharged home PHYSICAL EXAMINATION: Patient is lying in the bed comfortably, no acute distress, awake alert and oriented.. HEENT: Normocephalic. Neck is supple. Pupils reactive. Nostrils clear. Oral cavity is moist. Ears reveal no drainage. Neck reveals no JVD, carotid bruits, or thyromegaly. CHEST EXAMINATION: Trachea is central. Symmetrical expansion. Lung la clear to auscultation and percussion. CARDIAC: Normal S1, S2 with no gallops. No murmurs ABDOMEN: Soft. Bowel sounds normal. No organomegaly. No abdominal bruits. Extremities: reveal no edema. No clubbing or cyanosis Neurologically awake, alert, oriented x3 with well-coordinated movements. No focal deficits noted Skin: No rash or skin lesions. Psychiatric: Coperative. Nonsuicidal Musculoskeletal: No joint swelling or deformity. Normal range of motion. Vital Signs - 24 hr 09/30/17 09/30/17 09/30/17 21:32 21:51 22:40 Temperature 97.9 F 96.9 F L Pulse Rate 61 89 Pulse Rate [ 64 Right Sitting Pulse Oximetery ] Respiratory 18 18 18 Rate Blood Pressure 156/90 159/82 Blood Pressure 135/72 [Right Arm Sitting] O2 Sat by Pulse 97 98 98 Oximetry 10/01/17 10/01/17 10/01/17 00:00 04:00 08:00 Temperature 97.2 F L 97.0 F L Pulse Rate Pulse Rate [ 71 62 62 Right Sitting Pulse Oximetery ] Respiratory 17 18 18 Rate Blood Pressure Blood Pressure 123/54 109/62 141/75 [Right Arm Sitting] O2 Sat by Pulse 99 98 98 Oximetry 10/01/17 10/01/17 10/01/17 12:00 15:12 16:00 Temperature 98.1 F Pulse Rate Pulse Rate [ 67 67 64 Right Sitting Pulse Oximetery ] Respiratory 20 20 18 Rate Blood Pressure Blood Pressure 117/77 123/80 [Right Arm Sitting] O2 Sat by Pulse 97 96 Oximetry Patient Condition at Discharge: Stable Plan - Discharge Summary New Discharge Prescriptions: New Acetaminophen Tab [Tylenol] 650 mg PO Q6HR PRN tab PRN Reason: Fever And/ Or Pain Aspirin [Adult Low Dose Aspirin EC] 81 mg PO DAILY #30 tablet. Atorvastatin [Lipitor] 20 mg PO DAILY tab Continue cycloSPORINE 0.05% OPHTH SOLN [Restasis] 1 applicator BOTH EYES BID Vitamin B Complex 1 cap PO DAILY Potassium Citrate [Potassium Citrate ER] 10 meq PO DAILY Multivitamins, Thera [Multivitamin (formulary)] 1 tab PO DAILY Citalopram Hydrobromide [CeleXA] 20 mg PO HS ALPRAZolam [Xanax] 0.25 mg PO DAILY PRN PRN Reason: Anxiety Omeprazole 20 mg PO HS Ferrous Sulfate [Iron (65 MG Elemental)] 325 mg PO DAILY Famotidine [Pepcid] 20 mg PO DAILY Cholecalciferol [Vitamin D3] 5,000 unit PO DAILY Levothyroxine Sodium [Synthroid] 100 mcg PO DAILY Ginkgo Biloba 500 mg PO DAILY Discontinued Ibuprofen [Motrin Ib] 600 mg PO TID PRN PRN Reason: Pain Discharge Medication List ALPRAZolam [Xanax] 0.25 mg PO DAILY PRN 09/30/17 [History] Cholecalciferol [Vitamin D3] 5,000 unit PO DAILY 09/30/17 [History] Citalopram Hydrobromide [CeleXA] 20 mg PO HS 09/30/17 [History] Famotidine [Pepcid] 20 mg PO DAILY 09/30/17 [History] Ferrous Sulfate [Iron (65 MG Elemental)] 325 mg PO DAILY 09/30/17 [History] Ginkgo Biloba 500 mg PO DAILY 09/30/17 [History] Levothyroxine Sodium [Synthroid] 100 mcg PO DAILY 09/30/17 [History] Multivitamins, Thera [Multivitamin (formulary)] 1 tab PO DAILY 09/30/17 [History ] Omeprazole 20 mg PO HS 09/30/17 [History] Potassium Citrate [Potassium Citrate ER] 10 meq PO DAILY 09/30/17 [History] Vitamin B Complex 1 cap PO DAILY 09/30/17 [History] cycloSPORINE 0.05% OPHTH SOLN [Restasis] 1 applicator BOTH EYES BID 09/30/17 [ History] Acetaminophen Tab [Tylenol] 650 mg PO Q6HR PRN tab 10/01/17 [Rx] Aspirin [Adult Low Dose Aspirin EC] 81 mg PO DAILY #30 tablet. 10/01/17 [Rx] Atorvastatin [Lipitor] 20 mg PO DAILY tab 10/01/17 [Rx] Follow up Appointment(s)/Referral(s): Geovani Garner DO [Primary Care Provider] - 1-2 days Gonzalo Burris MD [STAFF PHYSICIAN] - 2 Weeks Discharge Disposition: HOME SELF-CARE
[2017-10-02] MEDS ORDERED: ATORVASTATIN 20 MG TAB PO SCH (09:00)
--- NOTE | 2017-10-02 10:12 | CONS ---
CONSULTATION DATE OF CONSULTATION: 10/01/2017. CHIEF COMPLAINT: Transient ischemic attack. HISTORY OF PRESENT ILLNESS: The patient is a pleasant 57-year-old, female, who was being evaluated by the neurology service per the request of Dr. Liu for a transient ischemic attack. The patient was brought into [facility] Emergency Room after she had a transient episode of expressive aphasia. The patient was talking to someone at work and she had a sudden onset of difficulty speaking. She was having significant word-finding difficulties. She believes the episode lasted a couple of minutes and resolved spontaneously. She was concerned because she does have a significant family history of strokes. She was not on any anti-platelet therapy at home. A CT scan of the brain was done in the emergency room. which was normal. A CT angiogram of the neck was done which showed no hemodynamically significant stenosis. Her CBC, INR, and chest x-ray were reviewed and were normal. Her urinalysis was normal. Her EKG showed sinus bradycardia. Her comprehensive metabolic profile and cardiac enzymes showed no significant abnormalities. A fasting lipid panel was done which showed mild dyslipidemia with an LDL of 117. At the time of my evaluation, she is resting in her bed and appears to be in no acute distress. She denies any recurrence of any neurological symptoms. During her expressive aphasia, she denied having any lateralizing numbness or weakness. PAST MEDICAL HISTORY: Gastroesophageal reflux disease, angina, hypothyroidism, depression. PAST SURGICAL HISTORY: Orthopedic surgeries and hernia repair. She also has history of thyroidectomy and left wrist surgery. SOCIAL HISTORY: She occasionally drinks alcohol. She denies any tobacco or drug use. FAMILY HISTORY: Positive for heart disease, strokes, dyslipidemia, hypertension. HOME MEDICATIONS: Reviewed in the chart. ALLERGIES: No known drug allergies. REVIEW OF SYSTEMS: CONSTITUTIONAL: Negative. EYES: Negative. ENT: Negative. CARDIOVASCULAR: Positive for occasional chest pain. RESPIRATORY: Negative. NEUROLOGICAL: As mentioned above. GASTROINTESTINAL: Positive for occasional heartburn. GENITOURINARY: Negative. DERMATOLOGICAL: Negative. PSYCHIATRIC: Positive for history of anxiety disorder and depression. MUSCULOSKELETAL: Negative. ENDOCRINE: Positive for hypothyroidism. PHYSICAL EXAM: Vital signs show a temperature of 97, pulse 62, respiration 18, blood pressure 141/75. Her blood pressure on arrival to the emergency room was 189/90. GENERAL APPEARANCE: The patient is a well-developed female, who appears to be in no acute distress. HEENT: Normocephalic, atraumatic, no facial asymmetry is seen. Neck is supple with no masses felt. CARDIOVASCULAR: Regular rate and rhythm. ABDOMEN: Nontender, nondistended. Extremities showed no edema, clubbing or cyanosis. NEUROLOGICAL EXAM: The patient is alert, aware and oriented x3. Speech and language are normal. Strength is full in all 4 extremities. Sensory exam was normal to light touch in all 4 extremities. No tremors or seizure-like activity is seen. No facial asymmetry seen on cranial nerve testing. IMPRESSION: 1. Transient ischemic attack. 2. Expressive aphasia, resolved. 3. Dyslipidemia. 4. Hypertension. RECOMMENDATION: The patient does appear to have suffered a transient ischemic attack with a transient episode of expressive aphasia. She has been started on aspirin 325 mg daily. I recommend that she continue on this regimen after her discharge. Her workup was pretty much negative except for mild dyslipidemia. I will start her on Lipitor 20 mg daily. I also recommend starting the patient on hypertension medications as her blood pressure was significantly elevated on arrival as mentioned above. She will follow up with Dr. Garner for further management after her discharge. No further inpatient neurological workup is needed at this time as her CT angiogram of the neck showed no hemodynamically significant stenosis. From a neurology standpoint, the patient is cleared for discharge. Thank you for allowing me to participate in the care of your patient. If you have any questions, please feel free to contact me. JOYCE / URIEL: [id number] /
== END 2017-10-01 21:37 | disposition home or self-care (01) ==
LOC: EC 17:05 → 6SEL 21:04
PROVIDERS: ADMIT Internal Medicine; ATTEND Internal Medicine
DX: R47.81 Slurred speech (principal); R47.01 Aphasia; H53.8 Other visual disturbances; E89.0 Postprocedural hypothyroidism; K21.9 Gastro-esophageal reflux disease without esophagitis; F41.9 Anxiety disorder, unspecified; F32.9 Major depressive disorder, single episode, unspecified; R51 Headache; I10 Essential (primary) hypertension; E78.5 Hyperlipidemia, unspecified; R42 Dizziness and giddiness; D50.9 Iron deficiency anemia, unspecified; R53.82 Chronic fatigue, unspecified; E66.9 Obesity, unspecified; Z68.26 Body mass index [BMI] 26.0-26.9, adult; Z79.899 Other long term (current) drug therapy; Z86.19 Personal history of other infectious and parasitic diseases; Z77.22 Contact with and (suspected) exposure to environmental tobacco smoke (acute) (chronic); Z82.3 Family history of stroke; Z82.49 Family history of ischemic heart disease and other diseases of the circulatory system; Z83.49 Family history of other endocrine, nutritional and metabolic diseases
CPT/HCPCS: 96361 ×4; 96360 ×2; 99285 ×2; 36415; 93005; 93306; 97161; 97165; 92523; 84439; 80061; 80053; 84443; 82550; 82553; 83735; 84484; 85025; 85610; 85730; 81001; 71046; 70496; 70450; 70498; G0378 ×2; Q9967

== ENCOUNTER → 2017-12-04 | Outpatient (CLI) | payer BC ==
[2017-12-04 11:26] LABS: Basophils % (A) 1 %; Eosinophils # (A) 0.1 k/uL (0-0.7); Eosinophils % (A) 2 %; HCT 37.9 % (34.0-46.0); HGB 12.6 gm/dL (11.4-16.0); Lymphocytes # (A) 1.5 k/uL (1.0-4.8); Lymphocytes % (A) 34 %; MCH 29.4 pg (25.0-35.0); MCHC 33.2 g/dL (31.0-37.0); MCV 88.5 fL (80.0-100.0); Mean Platelet Volume 7.2; Monocytes # (A) 0.3 k/uL (0-1.0); Monocytes % (A) 7 %; Neutrophils # (A) 2.3 k/uL (1.3-7.7); Neutrophils % (A) 54 %; Platelet Count 240 k/uL (150-450); RBC 4.28 m/uL (3.80-5.40); WBC 4.3 k/uL (3.8-10.6)
[2017-12-04 11:29] LABS: Appearance,Urine Clear (Clear); Bilirubin,Urine Negative (Negative); Blood,Urine Negative (Negative); Color,Urine Yellow; Glucose,Urine (UA) Negative (Negative); Ketones,Urine Negative (Negative); Leukocyte Esterase,Urine Negative (Negative); Nitrite,Urine Negative (Negative); PH, Urine 5.5 (5.0-8.0); Protein,Urine Negative (Negative); Specific Gravity,Urine 1.019 (1.001-1.035); Urobilinogen,Urine <2.0 mg/dL (<2.0)
[2017-12-04 11:35] LABS: Anion Gap 11 mmol/L; Blood Urea Nitrogen 21 mg/dL (7-17); Calcium 9.6 mg/dL (8.4-10.2); Carbon Dioxide 23 mmol/L (22-30); Chloride 109 mmol/L (98-107); Glucose 88 mg/dL (74-99); Potassium 4.3 mmol/L (3.5-5.1); Sodium 143 mmol/L (137-145)
== END | disposition home or self-care (01) ==
LOC: LABPAT 10:21
PROVIDERS: ATTEND Obstetrics & Gynecology
DX: Z01.812 Encounter for preprocedural laboratory examination (principal); R35.0 Frequency of micturition; N39.3 Stress incontinence (female) (male); Z79.899 Other long term (current) drug therapy
CPT/HCPCS: 36415; 80048; 81003; 85025; 87086; 93005

== ENCOUNTER 2017-12-10 06:43 | Inpatient (IN) | payer BC ==
[2017-12-02 11:42] VITALS: BMI 24.9
--- NOTE | 2017-12-09 22:27 | P.HPOB ---
History of Present Illness H&P Date: 12/09/17 Chief Complaint: Uterine prolapse with cystocele and urinary stress incontinence This is a 57-year-old female 0 para 0 who presents for total vaginal hysterectomy with anterior vaginal colporrhaphy, possible total abdominal hysterectomy with right salpingo-oophorectomy and Dr. Brewer will perform a pubovaginal sling for urinary stress incontinence. Patient's symptoms include pelvic pain, occasional urinary incontinence, and constipation. She complains of lower pelvic and lower abdominal pain that has been gradual in onset and is worsening over time. She also complains of lower abdominal bloating and pelvic pressure. She has been seen by urology and they have determined that she is a candidate for a pubovaginal sling due to her urinary incontinence. Obstetrical history: . Gynecologic history: No history of sexually transmitted diseases. Review of Systems Constitutional: Reports fatigue, Denies chills, Denies fever Eyes: bilateral blurred vision, denies pain Ears, nose, mouth and throat: Denies headache, Denies sore throat Cardiovascular: Denies chest pain, Denies shortness of breath Respiratory: Denies cough Gastrointestinal: Reports constipation Genitourinary: Reports prolapse symptoms, Reports stress incontinence, Reports urinary frequency Menstruation: Reports postmenopausal Integumentary: Denies pruritus, Denies rash Neurological: Denies numbness, Denies weakness Psychiatric: Reports depression, Reports insomnia Endocrine: Reports fatigue Past Medical History Past Medical History: Chest Pain / Angina, CVA/TIA, GERD/Reflux, Hyperlipidemia , Osteoarthritis (OA), Sleep Apnea/CPAP/BIPAP, Thyroid Disorder Additional Past Medical History / Comment(s): TIA 09/2017-no effects, chornic fatigue syndrome, margareth fan, anemia, urinary leakage. thyroid precancer, skin "precancer", premature ovarian failure History of Any Multi-Drug Resistant Organisms: None Reported Past Surgical History: Hernia Repair Additional Past Surgical History / Comment(s): partial thyroidedectomy, mult laparascopy, left oophorectomy, Past Anesthesia/Blood Transfusion Reactions: Postoperative Nausea & Vomiting ( PONV) Additional Past Anesthesia/Blood Transfusion Reaction / Comment(s): "long time to come out" Past Psychological History: Anxiety, Depression Smoking Status: Never smoker Past Alcohol Use History: Rare Past Drug Use History: None Reported - Past Family History Father Family Medical History: Cancer Medications and Allergies Home Medications Medication Instructions Recorded Confirmed Type ALPRAZolam [Xanax] 0.25 mg PO BID PRN 09/30/17 12/05/17 History Cholecalciferol [Vitamin D3] 4,000 unit PO DAILY 09/30/17 12/05/17 History Citalopram Hydrobromide [CeleXA] 20 mg PO HS 09/30/17 12/05/17 History Famotidine [Pepcid] 20 mg PO QAM 09/30/17 12/05/17 History Ferrous Sulfate [Iron (65 MG 325 mg PO DAILY 09/30/17 12/05/17 History Elemental)] Levothyroxine Sodium [Synthroid] 100 mcg PO [id number] 09/30/17 12/05/17 History Multivitamins, Thera [Multivitamin 1 tab PO DAILY 09/30/17 12/05/17 History (formulary)] Omeprazole 20 mg PO HS 09/30/17 12/05/17 History Potassium Citrate [Potassium 10 meq PO DAILY 09/30/17 12/05/17 History Citrate ER] Vitamin B Complex 1 cap PO DAILY 09/30/17 12/05/17 History cycloSPORINE 0.05% OPHTH SOLN 1 applicator BOTH EYES BID 09/30/17 12/05/17 History [Restasis] Acetaminophen Tab [Tylenol] 650 mg PO Q6HR PRN tab 10/01/17 12/05/17 Rx Aspirin 325 mg PO DAILY 12/05/17 12/05/17 History Atorvastatin [Lipitor] 20 mg PO HS 12/05/17 12/05/17 History Calcium Carbonate 500 mg PO TID 12/05/17 12/05/17 History Levothyroxine Sodium 50 mcg PO VAZQUEZ 12/05/17 12/05/17 History Loratadine 10 mg PO DAILY PRN 12/05/17 12/05/17 History Allergies Allergy/AdvReac Type Severity Reaction Status Date / Time No Known Allergies Allergy Verified 12/02/17 11:21 Exam Osteopathic Statement: *. No significant issues noted on an osteopathic structural exam other than those noted in the History and Physical/Consult. HEENT: Within normal limits Heart: Regular rate and rhythm Lungs: Clear to auscultation bilaterally Abdomen: Soft, nontender Pelvic exam: Perineum is scarred with lichen sclerosis. Grade 3 cystocele and grade 2 uterine prolapse are noted with no adnexal masses or tenderness noted. Extremities: Negative Homans Assessment and Plan (1) Cystocele with uterine prolapse Status: Acute Code(s): N81.4 - UTEROVAGINAL PROLAPSE, UNSPECIFIED SNOMED Code(s): 583836398 (2) Urinary, incontinence, stress female Status: Acute Code(s): N39.3 - STRESS INCONTINENCE (FEMALE) (MALE) SNOMED Code(s): 45030849 Plan: Plan is to proceed with total vaginal hysterectomy with anterior vaginal colporrhaphy, possible total abdominal hysterectomy with right salpingo- oophorectomy, and Dr. Brewer will perform pubovaginal sling for stress incontinence. I have discussed the risks, benefits, and alternative therapies for the above- mentioned procedure and for both sedation/anesthesia as well as necessary blood products administration, if indicated, as they pertain to this patient. The patient has indicated her understanding and acceptance of the risks and procedures discussed.
[~2017-12-10 06:43] MED LIST: ceFAZolin 1,000 MG in DEXTROSE/WATER 1 50ML.BAG IVPB ONE
[2017-12-10] MEDS ORDERED: SCOPOLAMINE 1.5MG/72HR PATCH TRANSDERM ONE (06:46)
[2017-12-10] MEDS ORDERED: ONDANSETRON 4 MG/2 ML VIAL IVP ONE (06:46)
[2017-12-10] MEDS ORDERED: DEXAMETHASONE SOD PHOSPHATE 10 MG/ML 1 ML VIAL IV ONE (06:46)
[2017-12-10] MEDS ORDERED: MIDAZOLAM 2 MG/2 ML VIAL IV PRN (06:46)
[2017-12-10] MEDS ORDERED: LIDOCAINE 1% 20 ML VIAL (10MG/ML) FOR IV START INTRADERMA PRN (06:46)
[2017-12-10] MEDS: LACTATED RINGERS 1,000 ML IV SCH (07:42)
[2017-12-10] MEDS ORDERED: MIDAZOLAM 2 MG/2 ML VIAL ONE (08:26)
[2017-12-10] MEDS ORDERED: SUCCINYLCHOLINE CHLORIDE 100 MG/5 ML SYR IV ONE (08:26)
[2017-12-10] MEDS ORDERED: fentaNYL (PF) 50 MCG/ML 2 ML AMP ONE (08:26)
[2017-12-10] MEDS ORDERED: ePHEDrine SULFATE/0.9% NACL/PF 50 MG/5 ML SYRINGE IV ONE (08:26)
[2017-12-10] MEDS ORDERED: PROPOFOL 10 MG/ML 20 ML VIAL IV ONE (08:26)
[2017-12-10] MEDS ORDERED: LIDOCAINE 1% INJ 10MG/ML (20 ML MDV) ONE (08:26)
[2017-12-10] MEDS ORDERED: GLYCOPYRROLATE 0.2 MG/ML 2 ML VIAL ONE (08:26)
[2017-12-10] MEDS ORDERED: LACTATED RINGERS 1,000 ML IV ONE (08:51)
[2017-12-10] MEDS ORDERED: EPINEPHrine 1 MG/ML 1 ML AMP SQ ONE (09:22)
[2017-12-10] MEDS ORDERED: GENTAMICIN IN NACL ISO-OSM PMX 80 MG/100 ML BAG IV ONE (09:24)
--- NOTE | 2017-12-10 09:49 | P.OP ---
Date of Procedure: 12/10/17 Preoperative Diagnosis: Stress urinary incontinence Postoperative Diagnosis: Same Procedure(s) Performed: Trans-obturator tape Anesthesia: RUTH ANN Surgeon: Irineo Brewer Pathology: none sent Condition: stable Disposition: PACU Indications for Procedure: The patient is 57. She has documented stress urinary incontinence. She has some urgency incontinence also. She comes for a vaginal hysterectomy anterior repair by Dr. Yousif and trans-obturator tape by me. Description of Procedure: The patient previously been brought to the operating room was given a general anesthetic placed lithotomy position with sterile prep and drape. Dr. Yousif and Juarez proceeded with a vaginal hysterectomy and anterior repair. I ended the procedure. Assess the urethra and anterior vaginal wall. Place a Ibanez catheter into the bladder. I dissect lateral the bladder neck bilaterally with Metzenbaum scissors. I make 2 incisions at the inguinal crease at the level of the clitoris. I passed the trans-obturator tape introducers into the incisions into the obturator foramen around the issue pubic ramus into the vagina making sure not to buttonhole the vagina. A irrigate the bladder bilaterally to make sure there is no bleeding and there is none. I attached the grafted introducers and pull the graft back through the obturator foramen bilaterally. The graft sits in the mid urethra nicely. I irrigate the bladder again and there is still no bleeding. Dr. Yousif finishes the anterior apparent closes vagina. I closed the vaginal incisions with 4-[address] A batch packs place. The patient's awake and returned recovery in good condition. Blood loss for my portion is about 50 mL.
--- NOTE | 2017-12-10 09:56 | P.OP ---
Date of Procedure: 12/10/17 Preoperative Diagnosis: Uterine prolapse with cystocele Urinary stress incontinence Postoperative Diagnosis: Same Procedure(s) Performed: Total vaginal hysterectomy with anterior vaginal colporrhaphy Dr. Brewer performed pubovaginal sling Anesthesia: RUTH ANN Surgeon: Marielos Yousif Hub Inventory Specialist #1: Gary Ellis Estimated Blood Loss (ml): 30 Pathology: other (Uterus with cervix, vaginal mucosa) Condition: stable Disposition: floor Indications for Procedure: This is a 57-year-old female 0 para 0 who presents for total vaginal hysterectomy with anterior vaginal colporrhaphy, possible total abdominal hysterectomy with right salpingo-oophorectomy and Dr. Brewer will perform a pubovaginal sling for urinary stress incontinence. Patient's symptoms include pelvic pain, occasional urinary incontinence, and constipation. She complains of lower pelvic and lower abdominal pain that has been gradual in onset and is worsening over time. She also complains of lower abdominal bloating and pelvic pressure. She has been seen by urology and they have determined that she is a candidate for a pubovaginal sling due to her urinary incontinence. Operative Findings: Grade 2 uterine prolapse is noted and grade 2-3 cystocele is noted. No appreciable rectocele is noted. Uterus is very small. Description of Procedure: The patient is taken the operating room where she is placed in the dorsal lithotomy position. She is prepped and draped in the normal sterile fashion. Next a weighted speculum was placed in the patient's vagina and a right angle retractor was used to visualize the cervix. The anterior lip of the cervix is grasped with a single-tooth tenaculum. Next the cervix was circumferentially injected with one amp of epinephrine to 150 mL of normal saline. Next the cervix was circumscribed with a scalpel. The vaginal mucosa was pushed away from the cervix with a sponge. Next the uterosacral ligaments are clamped on either side with a Shu clamp, cut with Curtis scissors, and then sutured with 0 Vicryl suture in a Shu transfixion stitch and then held on either side with a straight hemostat. Next the posterior peritoneal reflection was identified and entered sharply with Curtis scissors. The edges of the vaginal mucosa was then tagged with 0 Vicryl suture and held with a curved hemostat for identification. Next a longbilled weighted speculum was placed through the posterior peritoneal reflection. Next the cardinal ligaments were clamped on either side with Shu clamps, cut with Curtis scissors, and then sutured with 0 Vicryl suture in Shu transfixion stitches and cut. Next the vesicouterine peritoneum reflection is identified and entered sharply with Metzenbaum scissors. A right angle bladder retractor is then used to retract the bladder. The uterine arteries are clamped on either side with Shu clamps, cut with Curtis scissors, and then sutured with 0 Vicryl suture in Shu transfixion stitches. The round ligament is also clamped on either side with a Shu clamp , cut with Curtis scissors, and sutured with 0 Vicryl suture in Shu transfixion stitches. Next the uterine ovarian ligament and tube were clamped on either side with a Shu clamp, cut with Curtis scissors, and then sutured with 0 Vicryl suture in a [id number] stitch, flashed, and then free tied with another suture of 0 Vicryl suture. These pedicles were held with a straight Yokasta for identification. The uterus is removed from the field. Excellent hemostasis is noted. Neither ovary is visualized. Next the peritoneum is closed with 0 Vicryl suture in a pursestring fashion incorporating all the held ligaments. Next the uterine ovarian ligaments are tied together in the middle and cut. Next attention was turned to the cystocele repair. The edges of the vaginal mucosa are held with 2 Allis clamps. Next injection of the same epinephrine solution is injected underneath the mucosa upwards towards the urethra. Metzenbaum scissors were used to dissect underneath the vaginal mucosa and cut along the way up to just below the urethra. Sharp and blunt dissection are used to dissect the bladder away from the vaginal mucosa. Once the bladder was freed, Dr. Brewer performed his portion of the surgery which will be dictated separately. The cystocele is reduced with 0 Vicryl suture in [id number] stitches on either side of the cystocele. Next the edges of the vaginal mucosa are trimmed with Metzenbaum scissors. Next the vaginal mucosa is sutured with 0 Vicryl suture in a running locked fashion incorporating the vaginal cuff. The uterosacral ligaments were also tied together in the midline prior to completely closing the vaginal cuff. Excellent hemostasis is noted. The Ibanez catheter was previously inserted by Dr. Brewer and clear urine is noted.. Next the vagina is packed with one-inch iodoform gauze with bacitracin ointment. All sponge and needle counts are correct and the patient is then taken to recovery room in stable condition.
[2017-12-10] MEDS: HYDROmorphone 0.5 MG/0.5 ML SYRINGE IVP PRN ×2 (10:34→10:40)
[2017-12-10] MEDS ORDERED: LORATADINE 10 MG TAB PO PRN (11:42)
[2017-12-10] MEDS ORDERED: ZOLPIDEM 5 MG TAB PO PRN (11:42)
[2017-12-10] MEDS ORDERED: Acetaminophen-Codeine 300-30mg TAB PO PRN (11:42)
[2017-12-10] MEDS ORDERED: METOCLOPRAMIDE 5 MG/ML 2 ML VIAL IVP PRN (11:42)
[2017-12-10] MEDS ORDERED: diphenhydrAMINE 50 MG/ML 1 ML VIAL IVP PRN (11:42)
[2017-12-10] MEDS ORDERED: KETOROLAC 30 MG/ML 1 ML VIAL IVP PRN (11:42)
[2017-12-10] MEDS ORDERED: IBUPROFEN 600 MG TAB PO PRN (11:42)
[2017-12-10] MEDS ORDERED: ALPRAZolam 0.25 MG TAB PO PRN (11:42)
[2017-12-10] MEDS: LEVOTHYROXINE 100 MCG TAB PO SCH (11:53)
[2017-12-10] MEDS: cycloSPORINE 0.05% OPHTH 0.4 ML DROPERETTE BOTH EYES SCH ×2 (11:53→21:57)
[2017-12-10] MEDS: FAMOTIDINE 20 MG TAB PO SCH (11:54)
[2017-12-10] MEDS: SENNOSIDES-DOCUSATE SODIUM 1 EACH TAB PO SCH ×2 (14:32→21:48)
[2017-12-10] MEDS: POTASSIUM CITRATE 10 MEQ TABLET.ER PO SCH (15:21)
[2017-12-10] MEDS: CHOLECALCIFEROL 1,000 UNIT TAB PO SCH (15:24)
[2017-12-10] MEDS: Acetaminophen-Codeine 300-30mg TAB PO PRN (18:06)
[2017-12-10] MEDS: ATORVASTATIN 20 MG TAB PO SCH (21:48)
[2017-12-10] MEDS: CITALOPRAM HYDROBROMIDE 20 MG TAB PO SCH (21:48)
[2017-12-10] MEDS: PANTOPRAZOLE 40 MG TABLET PO SCH (21:48)
[2017-12-11] MEDS: LACTATED RINGERS 1,000 ML IV SCH (01:23)
[2017-12-11] MEDS: Acetaminophen-Codeine 300-30mg TAB PO PRN (06:24)
[2017-12-11] MEDS: FAMOTIDINE 20 MG TAB PO SCH (06:30)
[2017-12-11] MEDS: LEVOTHYROXINE 100 MCG TAB PO SCH (06:30)
[2017-12-11 06:32] LABS: Basophils % (A) 0 %; Eosinophils % (A) 0 %; HCT 37.2 % (34.0-46.0); HGB 12.6 gm/dL (11.4-16.0); Lymphocytes % (A) 19 %; MCH 29.7 pg (25.0-35.0); MCHC 33.8 g/dL (31.0-37.0); MCV 87.9 fL (80.0-100.0); Mean Platelet Volume 6.5; Monocytes # (A) 0.7 k/uL (0-1.0); Monocytes % (A) 7 %; Neutrophils # (A) 7.2 k/uL (1.3-7.7); Neutrophils % (A) 71 %; Platelet Count 228 k/uL (150-450); RBC 4.23 m/uL (3.80-5.40); RDW 13.7 % (11.5-15.5); WBC 10.1 k/uL (3.8-10.6)
--- NOTE | 2017-12-11 08:27 | P.PN ---
Subjective Progress Note Date: 12/11/17 The patient is in her first postoperative day from a vaginal hysterectomy, anterior repair and trans-obturator tape. Her pain is under control. She has eaten a little bit. The catheters removed she has not voided yet. She is ambulated. She doesn't feel ready to go home and since she lives alone this is appropriate. We will observe her until tomorrow. She will continue with her recuperation. Objective - Vital Signs Vital signs: Vital Signs Temp 98.8 F 12/11/17 08:00 Pulse 59 L 12/11/17 08:00 Resp 16 12/11/17 08:00 BP 135/74 12/11/17 08:00 Pulse Ox 95 12/11/17 08:00 Intake & Output 12/10/17 12/11/17 12/11/17 18:59 06:59 18:59 Intake Total 1810 100 Output Total 2130 1500 600 Balance -320 -1400 -600 Weight 65.771 kg 65.771 kg Intake: IV 1750 Oral 60 100 Output: Urine 2100 1500 600 Uretheral (Ibanez) 600 Estimated Blood Loss 30 Other: Voiding Method Indwelling Catheter Indwelling Catheter - Labs CBC & Chem 7: 12/11/17 05:59
--- NOTE | 2017-12-11 08:43 | P.PN ---
Subjective Progress Note Date: 12/11/17 Principal diagnosis: Status post total vaginal hysterectomy with anterior vaginal colporrhaphy and trans-obturator pubovaginal sling postoperative day #1 Patient is doing well. She has minimal pain. She is ambulating. She has not passed flatus or bowel movement yet. Her catheter was removed this morning and she has not urinated yet. Bleeding has been minimal. Objective - Vital Signs Vital signs: Vital Signs Temp 98.8 F 12/11/17 08:00 Pulse 59 L 12/11/17 08:00 Resp 16 12/11/17 08:00 BP 135/74 12/11/17 08:00 Pulse Ox 95 12/11/17 08:00 Intake & Output 12/10/17 12/11/17 12/11/17 18:59 06:59 18:59 Intake Total 1810 100 Output Total 2130 1500 600 Balance -320 -1400 -600 Weight 65.771 kg 65.771 kg Intake: IV 1750 Oral 60 100 Output: Urine 2100 1500 600 Uretheral (Ibanez) 600 Estimated Blood Loss 30 Other: Voiding Method Indwelling Catheter Indwelling Catheter - Constitutional General appearance: Present: cooperative, no acute distress - Gastrointestinal General gastrointestinal: Present: normal bowel sounds - Genitourinary Genitourinary Comment(s): Peripad shows scant serosanguineous discharge. - Labs CBC & Chem 7: 12/11/17 05:59 Assessment and Plan Assessment: Status post total vaginal hysterectomy with anterior vaginal colporrhaphy and trans-obturator pubovaginal sling postoperative day #1. (1) Cystocele with uterine prolapse Current Visit: Yes Status: Acute Code(s): N81.4 - UTEROVAGINAL PROLAPSE, UNSPECIFIED SNOMED Code(s): 459591222 (2) Urinary, incontinence, stress female Current Visit: Yes Status: Acute Code(s): N39.3 - STRESS INCONTINENCE ( FEMALE) (MALE) SNOMED Code(s): 34113242 Plan: Will work on bladder training today. Encouraged ambulation. Will discontinue NSAIDs per neurology recommendation. Will resume aspirin daily. Her pain is fairly well controlled with Tylenol and therefore no narcotic will be given. She states Tylenol 3 and Vicodin do not do anything for her. Will anticipate discharge home tomorrow.
[2017-12-11] MEDS: POTASSIUM CITRATE 10 MEQ TABLET.ER PO SCH (08:46)
[2017-12-11] MEDS: SIMETHICONE 80 MG CHEWABLE PO PRN ×2 (08:46→15:59)
[2017-12-11] MEDS: cycloSPORINE 0.05% OPHTH 0.4 ML DROPERETTE BOTH EYES SCH ×2 (08:47→20:34)
[2017-12-11] MEDS: SENNOSIDES-DOCUSATE SODIUM 1 EACH TAB PO SCH ×2 (08:48→20:33)
[2017-12-11] MEDS: CHOLECALCIFEROL 1,000 UNIT TAB PO SCH (08:55)
[2017-12-11] MEDS: ASPIRIN 325 MG TAB PO SCH (08:55)
[2017-12-11] MEDS: ACETAMINOPHEN TAB 325 MG TAB PO PRN ×2 (14:16→20:32)
[2017-12-11] MEDS: CITALOPRAM HYDROBROMIDE 20 MG TAB PO SCH (20:33)
[2017-12-11] MEDS: ATORVASTATIN 20 MG TAB PO SCH (20:33)
[2017-12-11] MEDS: PANTOPRAZOLE 40 MG TABLET PO SCH (20:33)
[2017-12-12] MEDS: FAMOTIDINE 20 MG TAB PO SCH (06:51)
[2017-12-12] MEDS: LEVOTHYROXINE 100 MCG TAB PO SCH (06:51)
--- NOTE | 2017-12-12 07:55 | P.PN ---
Subjective Progress Note Date: 12/12/17 Principal diagnosis: Status post total vaginal hysterectomy with anterior vaginal colporrhaphy and trans-obturator pubovaginal sling postoperative day #2 Patient is doing better today. She finally had a bowel movement this morning. Her pain is better since her bowel movement. She has not taken anything for pain. She is urinating without difficulty. She does complain of some mild tightness in the groin area with walking and moving. Bleeding is minimal. Objective - Vital Signs Vital signs: Vital Signs Temp 98.2 F 12/11/17 20:17 Pulse 54 L 12/11/17 20:17 Resp 16 12/12/17 00:00 BP 149/77 12/11/17 20:17 Pulse Ox 96 12/11/17 20:17 Intake & Output 12/11/17 12/12/17 12/12/17 18:59 06:59 18:59 Intake Total 480 600 Output Total 1100 Balance -620 600 Intake: Oral 480 600 Output: Urine 1100 Uretheral (Ibanez) 600 Other: Voiding Method Toilet # Voids 1 2 - Gastrointestinal General gastrointestinal: Present: normal bowel sounds, soft - Genitourinary Genitourinary Comment(s): Brandy-pad shows scant serosanguineous discharge - Labs CBC & Chem 7: 12/11/17 05:59 Assessment and Plan Assessment: Status post total vaginal hysterectomy with anterior vaginal colporrhaphy and trans-obturator pubovaginal sling postoperative day #2. (1) Cystocele with uterine prolapse Current Visit: Yes Status: Acute Code(s): N81.4 - UTEROVAGINAL PROLAPSE, UNSPECIFIED SNOMED Code(s): 499163395 (2) Urinary, incontinence, stress female Current Visit: Yes Status: Acute Code(s): N39.3 - STRESS INCONTINENCE ( FEMALE) (MALE) SNOMED Code(s): 62334913 Plan: Okay for discharge from [employer] standpoint. She can continue to use Tylenol as needed for pain. She will continue her daily aspirin. Advised limited lifting. I will need to see her in the office in 1 week. She is advised to call the office if she has any further questions or concerns prior to her appointment.
[2017-12-12 08:50] VITALS: BP 143/82; PULSE 53; RESP 18; TEMP 97.8
[2017-12-12] MEDS: CHOLECALCIFEROL 1,000 UNIT TAB PO SCH (09:37)
[2017-12-12] MEDS: ACETAMINOPHEN TAB 325 MG TAB PO PRN (09:37)
[2017-12-12] MEDS: SIMETHICONE 80 MG CHEWABLE PO PRN (09:37)
[2017-12-12] MEDS: cycloSPORINE 0.05% OPHTH 0.4 ML DROPERETTE BOTH EYES SCH (09:41)
[2017-12-12] MEDS: ASPIRIN 325 MG TAB PO SCH (09:41)
[2017-12-12] MEDS: POTASSIUM CITRATE 10 MEQ TABLET.ER PO SCH (09:41)
[2017-12-12] MEDS: SENNOSIDES-DOCUSATE SODIUM 1 EACH TAB PO SCH (09:42)
--- NOTE | 2017-12-12 10:01 | P.DS ---
Providers Date of admission: 12/10/17 06:43 Attending physician: Irineo Brewer Primary care physician: [facility] Course: The patient was admitted 12/15 2017 for a vaginal hysterectomy and anterior repair and trans-obturator tape. She underwent this without difficulty. Her catheter was removed on 12/11 and she voided without difficulty. Her pain was controlled. She had a bowel movement. This morning she is feeling well and ready for discharge home. She has been seen by Dr. Nica pacheco. She will only need Tylenol for pain. Her postoperative instructions of been given. She' ll follow-up in the office in one week to see me and when Dr. Yousif has instructed her to follow-up. She'll resume her home medications. Activities Limited. Diet is regular. Condition is good. Patient Condition at Discharge: Good Plan - Discharge Summary Discharge Rx Participant: No New Discharge Prescriptions: No Action cycloSPORINE 0.05% OPHTH SOLN [Restasis] 1 drop BOTH EYES BID Vitamin B Complex 1 cap PO DAILY Potassium Citrate [Potassium Citrate ER] 10 meq PO DAILY Multivitamins, Thera [Multivitamin (formulary)] 1 tab PO DAILY Citalopram Hydrobromide [CeleXA] 20 mg PO HS ALPRAZolam [Xanax] 0.25 mg PO BID PRN PRN Reason: Anxiety Omeprazole 20 mg PO HS Ferrous Sulfate [Iron (65 MG Elemental)] 325 mg PO DAILY Famotidine [Pepcid] 20 mg PO QAM Cholecalciferol [Vitamin D3] 4,000 unit PO DAILY Levothyroxine Sodium [Synthroid] 100 mcg PO MOTUWETHFRSA Acetaminophen Tab [Tylenol] 650 mg PO Q6HR PRN tab PRN Reason: Fever And/ Or Pain Loratadine 10 mg PO DAILY PRN PRN Reason: Sinus Symptoms Calcium Carbonate 500 mg PO TID Levothyroxine Sodium 50 mcg PO VAZQUEZ Atorvastatin [Lipitor] 20 mg PO HS Aspirin 325 mg PO DAILY Discharge Medication List ALPRAZolam [Xanax] 0.25 mg PO BID PRN 09/30/17 [History] Cholecalciferol [Vitamin D3] 4,000 unit PO DAILY 09/30/17 [History] Citalopram Hydrobromide [CeleXA] 20 mg PO HS 09/30/17 [History] Famotidine [Pepcid] 20 mg PO QAM 09/30/17 [History] Ferrous Sulfate [Iron (65 MG Elemental)] 325 mg PO DAILY 09/30/17 [History] Levothyroxine Sodium [Synthroid] 100 mcg PO MOTUWETHFRSA 09/30/17 [History] Multivitamins, Thera [Multivitamin (formulary)] 1 tab PO DAILY 09/30/17 [History ] Omeprazole 20 mg PO HS 09/30/17 [History] Potassium Citrate [Potassium Citrate ER] 10 meq PO DAILY 09/30/17 [History] Vitamin B Complex 1 cap PO DAILY 09/30/17 [History] cycloSPORINE 0.05% OPHTH SOLN [Restasis] 1 drop BOTH EYES BID 09/30/17 [History] Acetaminophen Tab [Tylenol] 650 mg PO Q6HR PRN tab 10/01/17 [Rx] Aspirin 325 mg PO DAILY 12/05/17 [History] Atorvastatin [Lipitor] 20 mg PO HS 12/05/17 [History] Calcium Carbonate 500 mg PO TID 12/05/17 [History] Levothyroxine Sodium 50 mcg PO VAZQUEZ 12/05/17 [History] Loratadine 10 mg PO DAILY PRN 12/05/17 [History] Follow up Appointment(s)/Referral(s): Marielos Yousif DO [Doctor of Osteopathic Medicine] - 12/18/17 1:30 pm (You have a follow up appointment with Dr Yousif scheduled for November at 1: 30 p.m.) Irineo Brewer MD [STAFF PHYSICIAN] - 1 Week Patient Instructions/Handouts: Bladder Sling Procedure (DC), Hysterectomy (DC) Activity/Diet/Wound Care/Special Instructions: No lifting anything heavier than a gallon of milk. No driving, no stooping or bending. Nothing in the vagina, no tampons, no douching, no intercourse. Activity as tolerated and rest as needed. Do not do any housework--no vacuuming. Limit steps and avoid carrying anything up the steps like laundry. Call Dr. Brewer or Dr. Yousif if you develop a fever, increase in pain, bleeding from your vagina, or if you have any other questions or concerns. Discharge Disposition: HOME SELF-CARE
== END 2017-12-12 11:00 | disposition home or self-care (01) | DRG 743 ==
LOC: 2ORMAIN 06:43 → 6PED 09:53 → EDSTATUS 12-17 07:30
PROVIDERS: ADMIT Urology; ATTEND Urology
PROC: 0TSD0ZZ Reposition Urethra, Open Approach (ICD-10-PCS; principal; 2017-12-10 08:30)
PROC: 0UT97ZZ Resection of Uterus, Via Natural or Artificial Opening (ICD-10-PCS; 2017-12-10 08:30)
PROC: 0JQC0ZZ Repair Pelvic Region Subcutaneous Tissue and Fascia, Open Approach (ICD-10-PCS; 2017-12-10 08:30)
DX: N81.2 Incomplete uterovaginal prolapse (principal); N39.3 Stress incontinence (female) (male); E78.5 Hyperlipidemia, unspecified; G47.33 Obstructive sleep apnea (adult) (pediatric); K21.9 Gastro-esophageal reflux disease without esophagitis; E07.9 Disorder of thyroid, unspecified; F32.9 Major depressive disorder, single episode, unspecified; F41.9 Anxiety disorder, unspecified; Z79.899 Other long term (current) drug therapy; Z79.82 Long term (current) use of aspirin; Z79.890 Hormone replacement therapy; Z99.89 Dependence on other enabling machines and devices; Z86.73 Personal history of transient ischemic attack (TIA), and cerebral infarction without residual deficits; Z90.721 Acquired absence of ovaries, unilateral
CPT/HCPCS: 85025; 86850; 86900; 86901; 88307

== ENCOUNTER → 2018-03-30 | Outpatient (CLI) | payer BC ==
[2018-03-30 08:49] LABS: Ionized Calcium 5.3 mg/dL (4.5-5.3)
[2018-03-30 09:10] LABS: T4, Free (Free Thyroxine) 1.08 ng/dL (0.78-2.19)
== END ==
LOC: LABWHC1 07:24
PROVIDERS: ATTEND Internal Medicine Endocrinology, Diabetes & Metabolism
DX: E55.9 Vitamin D deficiency, unspecified (principal); E89.0 Postprocedural hypothyroidism; M89.9 Disorder of bone, unspecified
CPT/HCPCS: 36415; 82306; 82330; 84439; 84443

== ENCOUNTER 2018-05-20 16:54 | Observation (INO) | payer BC ==
--- NOTE | 2018-05-20 18:12 | ED ---
General Adult HPI - General Chief complaint: Weakness Stated complaint: Poss mini stroke Time Seen by Provider: 05/20/18 17:49 Source: patient Mode of arrival: ambulatory Limitations: no limitations - History of Present Illness Initial comments: 58-year-old female with history of previous TIA, panic fatigue, thryoid disorder , and GERD presenting today for chief complaint of dysarthria and slurred speech one day ago. Patient states that 20 1:30 PM while in class she began to get stressed out she states she couldn't speak crackly, she states she was slurring her words had a tough time articulating what she was trying to say. She states this symptom is similar to when she had a TIA in September. Patient states she recorded her blood pressure at that time it was 159 systolic, she is unsure of the diastolic pressure. Patient states she did not seek medical attention at that time and just went home. Today she was talking with a friend explaining her symptoms who told her to call her neurologist Dr. Burris. Patient called Dr. Burris office and was told to come to emergency department immediately. Patient denies recurrence of those symptoms. Patient states that she does feel weak however this is daily for her. She denies any acute changes. Pt did admit to bilateral lower extremity weakness yesterday. She denies any facial droop, upper extremity weakness, paresthesias of the upper or lower extremities, visual changes, diplopia, patient denies dizziness at the time of symptoms. She does admit to dizziness on and off. Patient denies headache, she does state she occasionally does have left-sided headaches on and off denies current. Patient denies any nausea or vomiting. Patient denies any recent falls or trauma or injury to the head. Remainder of ROS (-), patient denies any recent fever, chills, shortness of breath, back pain, abdominal pain , nausea or vomiting, numbness or tingling, dysuria or hematuria, constipation or diarrhea, or visual changes, or any other complaints. Upon arrival pt BP elevated. Remainder of VS within acceptable limits. - Related Data Home Medications Medication Instructions Recorded Confirmed ALPRAZolam [Xanax] 0.25 mg PO BID PRN 09/30/17 05/20/18 Cholecalciferol [Vitamin D3] 4,000 unit PO DAILY 09/30/17 05/20/18 Citalopram Hydrobromide [CeleXA] 20 mg PO HS 09/30/17 05/20/18 Famotidine [Pepcid] 20 mg PO QAM 09/30/17 05/20/18 Ferrous Sulfate [Iron (65 MG 325 mg PO DAILY 09/30/17 05/20/18 Elemental)] Levothyroxine Sodium [Synthroid] 100 mcg PO MOTUWETHFRSA 09/30/17 05/20/18 Multivitamins, Thera [Multivitamin 1 tab PO DAILY 09/30/17 05/20/18 (formulary)] Omeprazole 20 mg PO DAILY 09/30/17 05/20/18 Potassium Citrate [Potassium 10 meq PO DAILY 09/30/17 05/20/18 Citrate ER] Vitamin B Complex 1 cap PO DAILY 09/30/17 05/20/18 cycloSPORINE 0.05% OPHTH SOLN 1 drop BOTH EYES BID 09/30/17 05/20/18 [Restasis] Aspirin 325 mg PO DAILY 12/05/17 05/20/18 Atorvastatin [Lipitor] 20 mg PO HS 12/05/17 05/20/18 Calcium Carbonate 500 mg PO TID 12/05/17 05/20/18 Loratadine 10 mg PO DAILY PRN 12/05/17 05/20/18 predniSONE See Taper PO DIRECTED 05/20/18 05/20/18 Previous Rx's Medication Instructions Recorded Acetaminophen Tab [Tylenol] 650 mg PO Q6HR PRN tab 10/01/17 Allergies Allergy/AdvReac Type Severity Reaction Status Date / Time ibuprofen [From Motrin] AdvReac Unknown Verified 05/20/18 18:16 Review of Systems ROS Statement: Those systems with pertinent positive or pertinent negative responses have been documented in the HPI. ROS Other: All systems not noted in ROS Statement are negative. Past Medical History Past Medical History: Chest Pain / Angina, CVA/TIA, GERD/Reflux, Thyroid Disorder Additional Past Medical History / Comment(s): Chronic Fatigue, [place], History of Any Multi-Drug Resistant Organisms: None Reported Past Surgical History: Hernia Repair, Orthopedic Surgery Additional Past Surgical History / Comment(s): thyroidedectomy, laparascopy, stress test, LEFT WRIST SX Past Anesthesia/Blood Transfusion Reactions: Postoperative Nausea & Vomiting ( PONV) Additional Past Anesthesia/Blood Transfusion Reaction / Comment(s): "long time to come out" Past Psychological History: Anxiety Smoking Status: Current every day smoker Past Alcohol Use History: Occasional Past Drug Use History: None Reported - Past Family History Mother Family Medical History: Coronary Artery Disease (CAD), Hyperlipidemia, Hypertension Father Family Medical History: Cancer General Exam - General Exam Comments Initial Comments: General: The patient is awake and alert, in no distress, and does not appear acutely ill. Eye: Pupils are equal, round and reactive to light, extra-ocular movements are intact. No nystagmus. There is normal conjunctiva bilaterally. No signs of icterus. Ears, nose, mouth and throat: There are moist mucous membranes and no oral lesions. Neck: The neck is supple, there is no tenderness or JVD. No carotid artery bruits. Cardiovascular: There is a regular rate and rhythm. No murmur, rub or gallop is appreciated. Respiratory: Lungs are clear to auscultation, respirations are non-labored, breath sounds are equal. No wheezes, stridor, rales, or rhonchi. Gastrointestinal: Soft, non-distended, non-tender abdomen without masses or organomegaly noted. There is no rebound or guarding present. Musculoskeletal: Normal ROM, no tenderness. Strength 5/5. Sensation intact. Pulses equal bilaterally 2+. Neurological: A&O x 3. 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 Able to follow simple verbal. Able to name a common object (pen). High quality, labial (pa) and lingual (la) speech. Low quality posterior pharynx/larynx (ga) voice sounds. Able to express general knowledge (days in a week). No hemineglect or inattention noted. Finger agnosia (-) and spatially oriented (identified L index finger touched R shoulder with L index finger). C Light touch sensation present over the face, chest, abdomen, back, UE bilaterally, and LE bilaterally. Able to localize point during point localization b/l and extinction. No visible bulk atrophy, hypertrophy, fasciculations, or myoclonus of the UE or LE b/l. Full PROM in UE and LE b/l. Bilateral muscle strength 5/5 for the following muscles: deltoid, biceps, triceps, brachioradialis, wrist extensors/flexor, hip flexor, hip abductors/adductors, hamstrings, quadriceps, feet dorsiflexors/plantar flexors. Finger to nose, finger to the examiners finger, and heel to garcía coordinated and accurate b/l. Coordinated and even demonstration of hand flip, finger to thumb, and toe tap b/l. Gait is coordinated and even in stride with tandem, toe and heel walk. Maintains balance with monopedal stance. (-) Romberg. (-) pronator drift. No nuchal rigidity. (-) . Skin: Skin is warm and dry and no rashes or lesions are noted. No lower extremity edema. Psychiatric: Cooperative, appropriate mood & affect, normal judgment. Limitations: no limitations Course Vital Signs 05/20/18 05/20/18 05/20/18 16:59 19:09 19:53 Temperature 97.7 F 98.1 F 98.7 F Pulse Rate 63 58 L Pulse Rate [ 62 Right Sitting Pulse Oximetery ] Respiratory 20 16 16 Rate Blood Pressure 171/99 140/89 Blood Pressure 165/103 [Right Arm Sitting] O2 Sat by Pulse 99 97 97 Oximetry 05/20/18 21:55 Temperature 97.9 F Pulse Rate Pulse Rate [ 55 L Right Sitting Pulse Oximetery ] Respiratory 16 Rate Blood Pressure Blood Pressure 137/79 [Right Arm Sitting] O2 Sat by Pulse Oximetry EKG Findings - EKG Comments: EKG Findings:: A 12-lead EKG was performed and shows the following: Rate is 50bpm, and rhythm is normal sinus. There are normal QRS complexes and normal R- wave progression. ST segments have no elevation or depression, and LA segments appear normal. LA interval 154 ms, QRS ration 86 ms, QT/QTC 488/444 ms this is sinus bradycardia, EKG was compared to that of November 2017 no acute changes or findings. Medical Decision Making - Medical Decision Making 58 yo female with hx previous TIA on ASA presenting today for cc of slurred speech and dysarthria yesterday. No focal neurological deficits on exam. PT denies current symptoms. CT (-) for acute process. Pt given ASA 325 mg once. Laboratory studies unremarkable. No acute EKG changes. Pt admitted to [facility] after discussing the case with Dr. Mehta in detail. [facility] accepted admission. Neurology on consult. Pt agreeable with admission. All findings discussed with pt. Home meds reconciled. BP elevated upon arrival, repeat within acceptable limits. - Lab Data Result diagrams: 05/20/18 18:25 05/20/18 18:25 Lab Results 05/20/18 05/20/18 05/20/18 Range/Units 18:25 18:25 18:25 WBC 9.6 (3.8-10.6) k/uL RBC 4.55 (3.80-5.40) m/uL Hgb 13.5 (11.4-16.0) gm/dL Hct 40.1 (34.0-46.0) % MCV 88.1 (80.0-100.0) fL MCH 29.6 (25.0-35.0) pg MCHC 33.6 (31.0-37.0) g/dL RDW 13.4 (11.5-15.5) % Plt Count 260 (150-450) k/uL Neutrophils % 85 % Lymphocytes % 12 % Monocytes % 3 % Eosinophils % 1 % Basophils % 0 % Neutrophils # 8.1 H (1.3-7.7) k/uL Lymphocytes # 1.1 (1.0-4.8) k/uL Monocytes # 0.3 (0-1.0) k/uL Eosinophils # 0.1 (0-0.7) k/uL Basophils # 0.0 (0-0.2) k/uL PT (9.0-12.0) sec INR (<1.2) APTT (22.0-30.0) sec Sodium 141 (137-145) mmol/L Potassium 4.0 (3.5-5.1) mmol/L Chloride 105 (98-107) mmol/L Carbon Dioxide 28 (22-30) mmol/L Anion Gap 8 mmol/L BUN 24 H (7-17) mg/dL Creatinine 0.80 (0.52-1.04) mg/dL Est GFR (CKD-EPI)AfAm >90 (>60 ml/min/1.73 sqM) Est GFR (CKD-EPI)NonAf 81 (>60 ml/min/1.73 sqM) Glucose 107 H (74-99) mg/dL Plasma Lactic Acid Paul (0.7-2.0) mmol/L Calcium 10.1 (8.4-10.2) mg/dL Total Bilirubin 0.4 (0.2-1.3) mg/dL AST 29 (14-36) U/L ALT 52 (9-52) U/L Alkaline Phosphatase 75 (38-126) U/L Total Creatine Kinase 108 (30-135) U/L CK-MB (CK-2) 0.6 (0.0-2.4) ng/mL CK-MB (CK-2) Rel Index 0.6 Troponin I <0.012 (0.000-0.034) ng/mL Total Protein 7.7 (6.3-8.2) g/dL Albumin 4.6 (3.5-5.0) g/dL Urine Color Urine Appearance (Clear) Urine pH (5.0-8.0) Ur Specific [place] (1.001-1.035) Urine Protein (Negative) Urine Glucose (UA) (Negative) Urine Ketones (Negative) Urine Blood (Negative) Urine Nitrite (Negative) Urine Bilirubin (Negative) Urine Urobilinogen (<2.0) mg/dL Ur Leukocyte Esterase (Negative) 05/20/18 05/20/18 05/20/18 Range/Units 18:25 18:25 18:25 WBC (3.8-10.6) k/uL RBC (3.80-5.40) m/uL Hgb (11.4-16.0) gm/dL Hct (34.0-46.0) % MCV (80.0-100.0) fL MCH (25.0-35.0) pg MCHC (31.0-37.0) g/dL RDW (11.5-15.5) % Plt Count (150-450) k/uL Neutrophils % % Lymphocytes % % Monocytes % % Eosinophils % % Basophils % % Neutrophils # (1.3-7.7) k/uL Lymphocytes # (1.0-4.8) k/uL Monocytes # (0-1.0) k/uL Eosinophils # (0-0.7) k/uL Basophils # (0-0.2) k/uL PT 9.7 (9.0-12.0) sec INR 1.0 (<1.2) APTT 22.8 (22.0-30.0) sec Sodium (137-145) mmol/L Potassium (3.5-5.1) mmol/L Chloride (98-107) mmol/L Carbon Dioxide (22-30) mmol/L Anion Gap mmol/L BUN (7-17) mg/dL Creatinine (0.52-1.04) mg/dL Est GFR (CKD-EPI)AfAm (>60 ml/min/1.73 sqM) Est GFR (CKD-EPI)NonAf (>60 ml/min/1.73 sqM) Glucose (74-99) mg/dL Plasma Lactic Acid Paul 0.8 (0.7-2.0) mmol/L Calcium (8.4-10.2) mg/dL Total Bilirubin (0.2-1.3) mg/dL AST (14-36) U/L ALT (9-52) U/L Alkaline Phosphatase (38-126) U/L Total Creatine Kinase (30-135) U/L CK-MB (CK-2) (0.0-2.4) ng/mL CK-MB (CK-2) Rel Index Troponin I (0.000-0.034) ng/mL Total Protein (6.3-8.2) g/dL Albumin (3.5-5.0) g/dL Urine Color Colorless Urine Appearance Clear (Clear) Urine pH 7.5 (5.0-8.0) Ur Specific [place] 1.007 (1.001-1.035) Urine Protein Negative (Negative) Urine Glucose (UA) Negative (Negative) Urine Ketones Negative (Negative) Urine Blood Negative (Negative) Urine Nitrite Negative (Negative) Urine Bilirubin Negative (Negative) Urine Urobilinogen <2.0 (<2.0) mg/dL Ur Leukocyte Esterase Negative (Negative) Disposition Clinical Impression: TIA (transient ischemic attack) Disposition: ADMITTED IP TO THIS HOSP Condition: Stable Is patient prescribed a controlled substance at d/c from ED?: No Time of Disposition: 19:50 Decision to Admit Reason: Admit from EC Decision Date: 05/20/18 Decision Time: 19:50
[2018-05-20 18:39] LABS: Appearance,Urine Clear (Clear); Bilirubin,Urine Negative (Negative); Blood,Urine Negative (Negative); Color,Urine Colorless; Glucose,Urine (UA) Negative (Negative); Ketones,Urine Negative (Negative); Leukocyte Esterase,Urine Negative (Negative); Nitrite,Urine Negative (Negative); PH, Urine 7.5 (5.0-8.0); Protein,Urine Negative (Negative); Specific Gravity,Urine 1.007 (1.001-1.035); Urobilinogen,Urine <2.0 mg/dL (<2.0)
[2018-05-20 18:40] LABS: Basophils % (A) 0 %; Eosinophils # (A) 0.1 k/uL (0-0.7); Eosinophils % (A) 1 %; HCT 40.1 % (34.0-46.0); HGB 13.5 gm/dL (11.4-16.0); Lymphocytes # (A) 1.1 k/uL (1.0-4.8); Lymphocytes % (A) 12 %; MCH 29.6 pg (25.0-35.0); MCHC 33.6 g/dL (31.0-37.0); MCV 88.1 fL (80.0-100.0); Mean Platelet Volume 6.8; Monocytes # (A) 0.3 k/uL (0-1.0); Monocytes % (A) 3 %; Neutrophils # (A) 8.1 k/uL (1.3-7.7); Neutrophils % (A) 85 %; Platelet Count 260 k/uL (150-450); RBC 4.55 m/uL (3.80-5.40); RDW 13.4 % (11.5-15.5); WBC 9.6 k/uL (3.8-10.6)
[2018-05-20 18:49] LABS: Partial Thromboplastin Time 22.8 sec (22.0-30.0); Prothrombin Time 9.7 sec (9.0-12.0)
[2018-05-20 18:52] LABS: ALT 52 U/L (9-52); AST 29 U/L (14-36); Albumin 4.6 g/dL (3.5-5.0); Alkaline Phosphatase 75 U/L (38-126); Anion Gap 8 mmol/L; Blood Urea Nitrogen 24 mg/dL (7-17); Calcium 10.1 mg/dL (8.4-10.2); Carbon Dioxide 28 mmol/L (22-30); Chloride 105 mmol/L (98-107); Glucose 107 mg/dL (74-99); Sodium 141 mmol/L (137-145); Total Bilirubin 0.4 mg/dL (0.2-1.3); Total Protein 7.7 g/dL (6.3-8.2)
[2018-05-20 18:55] LABS: Creatine Kinase 108 U/L (30-135)
[2018-05-20 19:07] LABS: Creatine Kinase MB 0.6 ng/mL (0.0-2.4); Troponin I <0.012 ng/mL (0.000-0.034)
--- NOTE | 2018-05-20 19:14 | CT ---
EXAMINATION TYPE: CT brain wo con DATE OF EXAM: 05/20/2018 COMPARISON: 09/30/2017 HISTORY: Prior TIA, speech disturbance yesterday CT DLP: 1009.4 mGycm Automated exposure control for dose reduction was used. FINDINGS: Ventricles of normal size. There is no mass effect nor midline shift. There is no sign of intracrania l hemorrhage. There is no evidence of cerebral edema. Calvarium is intact. IMPRESSION: NEGATIVE CT SCAN OF THE BRAIN. NO CHANGE.
[2018-05-20] MEDS ORDERED: ASPIRIN 325 MG TAB PO STA (19:46)
[2018-05-20] MEDS ORDERED: CALCIUM CARBONATE 500 MG PO SCH (22:15)
[2018-05-20 23:50] VITALS: BMI 25.4
[2018-05-21] MEDS ORDERED: ALPRAZolam 0.25 MG TAB PO PRN (00:03)
[2018-05-21] MEDS ORDERED: CALCIUM CARBONATE 500 MG CHEWABLE PO PRN (00:04)
[2018-05-21] MEDS ORDERED: MELATONIN 3 MG TABLET PO PRN (00:04)
[2018-05-21] MEDS ORDERED: ONDANSETRON 4 MG/2 ML VIAL IVP PRN (00:04)
[2018-05-21] MEDS ORDERED: NALOXONE 0.4 MG/ML 1 ML VIAL IV PRN (00:04)
[2018-05-21] MEDS ORDERED: LACTULOSE 20 GM/30 ML CUP PO PRN (00:04)
[2018-05-21] MEDS ORDERED: ACETAMINOPHEN TAB 325 MG TAB PO PRN (00:04)
[2018-05-21] MEDS ORDERED: MAGNESIUM HYDROXIDE 2,400 MG/10 ML CUP PO PRN (00:04)
[2018-05-21 00:16] VITALS: RESP 18
--- NOTE | 2018-05-21 01:21 | HP ---
HISTORY AND PHYSICAL DATE OF ADMISSION: 05/20/2018 DATE OF SERVICE: 05/20/2018. PRESENTING COMPLAINT: Slurred speech. HISTORY OF PRESENTING COMPLAINT: This is a patient I saw yesterday in the ER on 05/20/2018. The patient's chronic stable medical conditions include anxiety, depression, GERD, hypothyroid. The patient has had part of her thyroid removed. The patient also sees Dr. Burris for back pain and also saw Dr. Perkins. The patient has had TIA in the past. Yesterday while she was taking history class she found she could not speak the words out and she somehow finished the class. blood pressure is 159/82 and then she straight went home. Since she lives past, still not able to speak and she did not really get a chance to speak. There was no weakness in any limbs. No headache. No change in vision. No dizziness. No trouble swallowing. Today, she states she is more careful with the speech. Has not noticed any obvious trouble finding words as such per se. Admitted for the same, being admitted for the same. REVIEW OF SYSTEMS: CONSTITUTIONAL: None. HEENT: None. RESPIRATORY: None. CARDIOVASCULAR: None. GENITOURINARY: None. MUSCULOSKELETAL: Chronic low back pain. DERMATOLOGICAL, HEMATOLOGIC, LYMPHATIC: none. PSYCHIATRY none. Neurological as above. PAST MEDICAL HISTORY: Of TIA, anxiety, depression, GERD, hypothyroid, chronic low back pain. PAST SURGICAL HISTORY: Hernia repair, thyroidectomy, partial, left wrist surgery. SOCIAL HISTORY: The patient lives by herself. 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 FAMILY HISTORY: Coronary artery disease, hyperlipidemia and hypertension. HOME MEDICATIONS: 1. Claritin 10 mg daily p.r.n. 2. Synthroid 100 mcg daily. 3. Aspirin 325 p.o. daily. 4. Tylenol 650 mg q.6h p.r.n. 5. Xanax 0.25 p.o. b.i.d. p.r.n. prednisone taper. 6. Omeprazole 20 mg a day. 7. Restasis 0.05% 1 drop to both eyes b.i.d. 8. Vitamin B complex 1 capsule p.o. daily. 9. Potassium citrate ER 10 mEq p.o. daily. 10.Multivitamin 1 tablet p.o. daily. 11.Iron 325 p.o. daily. 12.Pepcid 20 mg p.o. daily. 13.Celexa 20 mg q.h.s. 14.Vitamin D3 4000 units p.o. daily. 15.Calcium carbonate 500 mg p.o. t.i.d. 16.Lipitor 20 mg q.h.s. ALLERGY: IBUPROFEN. PHYSICAL EXAMINATION: VITAL SIGNS: Temperature 97.7, pulse 63, respiration 20, blood pressure on presentation 171/99, pulse ox 99% on room air. Repeat blood pressure did come down to 137/79. General appearance: Average build, lying in bed comfortable. EYES: Pupils equal. Conjunctivae normal. HEENT: External appearance of nose and ears normal. Oral cavity normal. NECK: JVD not raised. Mass not palpable. Respiratory effort lungs are clear. Cardiovascular: 1st and 2nd sounds noted. No edema. ABDOMEN: Soft, nontender. Liver and spleen not palpable. LYMPHATICS: No lymph nodes palpable in the neck or axilla. PSYCHIATRY: Alert and oriented x3. Mood and affect normal neurological pupils equal. Cranial nerves grossly intact. Power sensation grossly intact. It may be noted that the patient has a slight facial asymmetry from . INVESTIGATION: White count 9.6, hemoglobin 13.5 potassium 4, BUN 24, creatinine 0.80. UA negative. EKG tracing personally reviewed by me shows sinus bradycardia. CT scan of the brain reported to be negative. ASSESSMENT: 1. Possible transient ischemic attack affecting the speech area. The patient currently has no focal deficits. 2. Anxiety/depression otherwise specified. 3. Gastroesophageal reflux disease. 4. Hypothyroidism. 5. Essential hypertension. 6. Chronic low back pain, cause unknown, being worked up by Dr. Burris and Dr. Perkins. PLAN: Will do an MRI of the brain with and without contrast. We will also do a carotid Doppler and 2-D echocardiogram. Neuro checks are in place. Home medications are resumed since the patient is getting rather bradycardic. We will keep a close eye on the heart rate. Care was discussed with the patient. Questions were answered. The patient is concerned about a lump on the right side of throat which I think is cartilage. We will get a CT scan of the neck to rule out any right-sided neck mass. Copy to Dr. Garner. MMODL / IJN: [id number] /
[2018-05-21] MEDS ORDERED: LEVOTHYROXINE 100 MCG TAB PO SCH (06:30)
[2018-05-21 06:45] LABS: Cholesterol 155 mg/dL (<200); HDL Cholesterol 80 mg/dL (40-60); LDL Cholesterol,Calculated 66 mg/dL (0-99); Triglycerides 44 mg/dL (<150)
[2018-05-21] MEDS: cycloSPORINE 0.05% OPHTH 0.4 ML DROPERETTE BOTH EYES SCH ×2 (08:31→20:33)
[2018-05-21] MEDS ORDERED: PANTOPRAZOLE 40 MG TABLET PO SCH (09:00)
[2018-05-21] MEDS ORDERED: CHOLECALCIFEROL 1,000 UNIT TAB PO SCH (09:00)
[2018-05-21] MEDS ORDERED: ENOXAPARIN 40 MG/0.4 ML SYRINGE SQ SCH (09:00)
[2018-05-21] MEDS ORDERED: FAMOTIDINE 20 MG TAB PO SCH ×2 (09:00→21:00)
[2018-05-21] MEDS ORDERED: POTASSIUM CITRATE 10 MEQ TABLET.ER PO SCH (09:00)
[2018-05-21] MEDS ORDERED: ASPIRIN 325 MG TAB PO SCH (09:00)
[2018-05-21] MEDS ORDERED: NON-FORMULARY DRUG (Vitamin B Complex [Vitamin B Complex] 1 CAP) PO SCH (09:00)
[2018-05-21] MEDS ORDERED: FERROUS SULFATE 325 MG TAB PO SCH (09:00)
--- NOTE | 2018-05-21 09:34 | CT ---
EXAMINATION TYPE: CT soft tissue neck w con DATE OF EXAM: 05/21/2018 HISTORY: Questionable neck mass COMPARISON: 12/20/2011 CT DLP: 210.3 mGycm. Automated Exposure Control for Dose Reduction was Utilized. TECHNIQUE: CT scan of the neck is performed with IV Contrast, patient injected with 100 ml mL of Iso liana 300, axial images are obtained, coronal and sagittal reformatted images are reviewed. FINDINGS: The right BB marker indicating the palpable abnormality overlies the sternocleidomastoid and the most inferior aspect of the parotid gland tail. There is no suspicious abnormality although just cranial to the BB marker there is extensive spray artifact from the patient's dental fillings creating obscur ation. Bilateral subcentimeter probable intraparotid lymph nodes are present. Parotid glands demonstr ate some likely age-related atrophy. Submandibular glands are symmetric. True and false focal cords are unremarkable. [place] tonsils are symmetric. Vallecula and piriform s inuses are also symmetric and unremarkable. Supraglottic and infraglottic airway are maintained. Lung apices are well aerated. Thyroid gland appears surgically absent on the right or significantly atrop hic. Left thyroid gland appears homogeneous. Moderate multilevel degenerative changes of the spine ar e seen. Visualized paranasal sinuses appear well aerated. IMPRESSION: No abnormality is seen deep to the right palpable BB marker. An unremarkable right sternocleidomastoi d muscle and most distal aspect of the parotid gland tail are noted deep to the marker.
--- NOTE | 2018-05-21 09:43 | US ---
EXAMINATION TYPE: US carotid duplex BILAT DATE OF EXAM: 05/21/2018 COMPARISON: NONE CLINICAL HISTORY: tia. TIA symptoms, slurred speech, confusion EXAM MEASUREMENTS: RIGHT: Peak Systolic Velocity (PSV) cm/sec ----- Right CCA: 72.9 ----- Right ICA: 87.5 ----- Right ECA: 72.6 ICA/CCA ratio: 1.2 RIGHT: End Diastole cm/sec ----- Right CCA: 24.1 ----- Right ICA: 37.0 ----- Right ECA: 10.8 LEFT: Peak Systolic Velocity (PSV) cm/sec ----- Left CCA: 61.1 ----- Left ICA: 70.0 ----- Left ECA: 62.6 ICA/CCA ratio: 1.1 LEFT: End Diastole cm/sec ----- Left CCA: 23.7 ----- Left ICA: 27.0 ----- Left ECA: 6.9 VERTEBRALS (direction of flow): Right Vertebral: Antegrade Left Vertebral: Antegrade Rhythm: Normal No elevated velocities, no significant stenosis. IMPRESSION: Mild degree of grayscale atheromatous plaquing with no sonographically evident hemodynam ically significant stenosis within either visualized carotid arterial system. Criteria for Assigning % of Stenosis / Diameter reduction (Estimation based on the indirect measurements of the internal carotid artery velocities (ICA PSV). 1. Normal (no stenosis)=ICA PSV < 125 cm/s: ratio < 2.0: ICA EDV<40 cm/s. 2. Less than 50% stenosis=ICA PSV < 125 cm/s: ratio < 2.0: ICA EDV<40 cm/s. 3. 50 to 69% stenosis=ICA PSV of 125 to 230 cm/s: ration 2.0 ? 4.0: ICA EDV 40-100 cm/s. 4. Greater than 70% stenosis to near occlusion= ICA PSV > 230 cm/s: ratio > 4.0: ICA EDV > 100 cm/s. 5. Near occlusion= ICA PSV velocities may be low or undetectable: variable ratio and ICA EDV. 6. Total occlusion=unable to detect flow.
[2018-05-21] MEDS ORDERED: MULTIVITAMINS, THERA 1 EACH TAB PO SCH (12:00)
--- NOTE | 2018-05-21 12:01 | ECHOF ---
Referral Reason:tia MEASUREMENTS -------- HEIGHT: 162.6 cm WEIGHT: 67.1 kg BP: 123/93 RVIDd: 2.5 cm (< 3.3) IVSd: 1.0 cm (0.6 - 1.1) LVIDd: 4.6 cm (3.9 - 5.3) LVPWd: 1.3 cm (0.6 - 1.1) IVSs: 1.5 cm LVIDs: 2.9 cm LVPWs: 1.3 cm LA Diam: 3.1 cm (2.7 - 3.8) Ao Diam: 3.0 cm (2.0 - 3.7) AV Cusp: 1.8 cm (1.5 - 2.6) MV EXCURSION: 23.254 mm (> 18.000) MV EF SLOPE: 113 mm/s (70 - 150) EPSS: 0.3 cm MV E Jc: 0.47 m/s MV DecT: 198 ms MV A Jc: 0.59 m/s MV E/A Ratio: 0.81 RAP: 5.00 mmHg RVSP: 21.75 mmHg FINDINGS -------- Sinus rhythm. This was a technically adequate study. LV size, wall thickness and systolic function are normal, with an EF greater than 55%. The left jennifer tricular size is normal. The right ventricle is normal in size. The left atrial size is normal. The right atrial size is normal. The aortic valve is trileaflet, and appears structurally normal. No aortic stenosis or regurgitation. The mitral valve is normal. Mild mitral regurgitation is present. Mild tricuspid regurgitation present. There is no evidence of pulmonary hypertension. The right v entricular systolic pressure, as measured by Doppler, is 21.75mmHg. There is no pulmonic regurgitation present. The aortic root size is normal. There is no pericardial effusion. CONCLUSIONS -------- 1. Sinus rhythm. 2. This was a technically adequate study. 3. LV size, wall thickness and systolic function are normal, with an EF greater than 55%. 4. The left ventricular size is normal. 5. The left atrial size is normal. 6. The aortic valve is trileaflet, and appears structurally normal. No aortic stenosis or regurgitati on. 7. Mild mitral regurgitation is present. 8. Mild tricuspid regurgitation present. 9. There is no evidence of pulmonary hypertension. 10. There is no pulmonic regurgitation present. 11. The aortic root size is normal. 12. There is no pericardial effusion. OIL SPRAYER: Aleta Flores RDCS
--- NOTE | 2018-05-21 13:22 | MR ---
EXAMINATION TYPE: MR brain wo/w con DATE OF EXAM: 05/21/2018 COMPARISON: CT brain from yesterday. HISTORY: temp loss of speech TECHNIQUE: Multiplanar, multisequence images of the brain and brainstem is performed without and with IV contras t, utilizing 7 mL intravenous Gadavist . FINDINGS: Diffusion weighted images demonstrate no evidence of a recent infarct or other diffusion ab normality. There is no worrisome extra-axial fluid collection. The ventricular system and cisternal spaces are normal in size and appearance. The brain volume is age appropriate. There are scattered foci of T2 hyperintensity seen throughout the white matter bilaterally. Approximately 15-20 scattered lesions are seen. Lesions are nonspecific in appearance and distribution. Midline structures demonstrate normal morphology. The craniocervical junction appears within normal limits. Post contrast images demonstrate no abnormal enhancement. The dural venous sinuses appear pa tent. The visualized sinuses are clear and the globes are intact. IMPRESSION: 1. No evidence of a recent infarct. 2. Mild to moderate amount of nonspecific white matter changes most likely on basis of product of chr onic small vessel ischemic change. No suspicious enhancement is seen.
[2018-05-21 19:56] VITALS: BP 128/73; PULSE 57; TEMP 98.8
[2018-05-21] MEDS ORDERED: CLOPIDOGREL 75 MG TAB PO SCH (20:30)
[2018-05-21] MEDS ORDERED: CITALOPRAM HYDROBROMIDE 20 MG TAB PO SCH (21:00)
[2018-05-21] MEDS ORDERED: ATORVASTATIN 20 MG TAB PO SCH (21:00)
--- NOTE | 2018-05-21 21:04 | EEG ---
ELECTROENCEPHALOGRAM REPORT REFERRING PHYSICIAN: Dr. Lester. CONSULTING/INTERPRETING PHYSICIAN: Dr. Ajay SERRANO. DATE OF EE05/21/2018. ELECTROENCEPHALOGRAPHIC EXAMINATION REPORT: INDICATION FOR EXAMINATION: This patient is a 58-year-old female being evaluated for TIA. AGE: [age]. EEG FINDINGS: A routine 21 channel awake digital EEG recording was accomplished utilizing the 10-20 international system with bipolar and referential montages. The background activity in the most alert resting state consists of a low to medium amplitude, fairly well developed and well sustained 8-9 hertz activity over the posterior head regions. This posterior rhythm attenuates to eye opening. There is a small amount of low amplitude 18-20 Hz beta activity seen maximally over the anterior head regions. Muscle and movement artifact was observed on a few occasions during the tracing. Hyperventilation was not performed. Photic stimulation at flash frequencies of 2-30 Hz produced a good symmetrical occipital driving response. No epileptiform discharges were seen. IMPRESSION: This EEG is within normal limits for the patient's age. The EEG failed to reveal any focal, lateralized, or epileptiform abnormalities. Clinical correlation is recommended. MMODL / IJN: [id number] /
--- NOTE | 2018-05-21 21:17 | P.CNNES ---
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 She states her speech was slightly slurred and this episode lasted for 2 minutes. She took her blood pressure which was 159 and later went up to 169. The next day she called her neurologist and he told her to come to the emergency room. Patient has a history of this episode of's speech disturbance which occurred in September and she was admitted to the hospital at that time with TIA. Patient has been taking aspirin since then. She states she's been taking her aspirin regularly and she has not missed any doses. She denied any other associated symptoms such as focal weakness numbness visual changes. Review of Systems Constitutional: Denies chills, Denies fever Eyes: denies blurred vision, denies pain Ears, nose, mouth and throat: Denies headache, Denies sore throat Cardiovascular: Denies chest pain, Denies shortness of breath Respiratory: Denies cough Gastrointestinal: Denies abdominal pain, Denies diarrhea, Denies nausea, Denies vomiting Genitourinary: Denies dysuria, Denies hematuria Integumentary: Denies pruritus, Denies rash Neurological: Denies numbness, Denies weakness Psychiatric: Denies anxiety, Denies depression Past Medical History Past Medical History: Chest Pain / Angina, CVA/TIA, GERD/Reflux, Thyroid Disorder Additional Past Medical History / Comment(s): Chronic Fatigue, [place], History of Any Multi-Drug Resistant Organisms: None Reported Past Surgical History: Hernia Repair, Orthopedic Surgery Additional Past Surgical History / Comment(s): thyroidedectomy, laparascopy, stress test, LEFT WRIST SX Past Anesthesia/Blood Transfusion Reactions: Postoperative Nausea & Vomiting ( PONV) Additional Past Anesthesia/Blood Transfusion Reaction / Comment(s): "long time to come out" Past Psychological History: Anxiety Smoking Status: Current every day smoker Past Alcohol Use History: Occasional Past Drug Use History: None Reported - Past Family History Mother Family Medical History: Coronary Artery Disease (CAD), Hyperlipidemia, Hypertension Father Family Medical History: Cancer Medications and Allergies Home Medications Medication Instructions Recorded Confirmed Type ALPRAZolam [Xanax] 0.25 mg PO BID PRN 09/30/17 05/20/18 History Cholecalciferol [Vitamin D3] 4,000 unit PO DAILY 09/30/17 05/20/18 History Citalopram Hydrobromide [CeleXA] 20 mg PO HS 09/30/17 05/20/18 History Famotidine [Pepcid] 20 mg PO QAM 09/30/17 05/20/18 History Ferrous Sulfate [Iron (65 MG 325 mg PO DAILY 09/30/17 05/20/18 History Elemental)] Levothyroxine Sodium [Synthroid] 100 mcg PO MOTUWETHFRSA 09/30/17 05/20/18 History Multivitamins, Thera [Multivitamin 1 tab PO DAILY 09/30/17 05/20/18 History (formulary)] Omeprazole 20 mg PO DAILY 09/30/17 05/20/18 History Potassium Citrate [Potassium 10 meq PO DAILY 09/30/17 05/20/18 History Citrate ER] Vitamin B Complex 1 cap PO DAILY 09/30/17 05/20/18 History cycloSPORINE 0.05% OPHTH SOLN 1 drop BOTH EYES BID 09/30/17 05/20/18 History [Restasis] Acetaminophen Tab [Tylenol] 650 mg PO Q6HR PRN tab 10/01/17 05/20/18 Rx Calcium Carbonate 500 mg PO TID 12/05/17 05/20/18 History predniSONE See Taper PO DIRECTED 05/20/18 05/20/18 History Atorvastatin [Lipitor] 40 mg PO HS #30 tablet 05/21/18 Rx Clopidogrel [Plavix] 75 mg PO DAILY #30 tab 05/21/18 Rx Allergies Allergy/AdvReac Type Severity Reaction Status Date / Time ibuprofen [From Motrin] AdvReac Unknown Verified 05/20/18 18:16 Physical Examination - Vital Signs Vital Signs: Vital Signs Temp Pulse Resp BP Pulse Ox 05/21/18 19:52 98.8 F 57 L 16 128/73 97 05/21/18 16:00 98.3 F 66 18 106/68 96 05/21/18 12:00 98.1 F 58 L 18 128/78 98 05/21/18 08:00 98.5 F 60 18 111/94 98 05/21/18 04:00 98.6 F 55 L 18 123/93 100 05/21/18 00:00 98.6 F 63 18 116/69 97 05/20/18 21:55 97.9 F 55 L 16 137/79 05/20/18 21:20 98.6 F 63 18 116/69 97 Intake and Output 05/21/18 05/21/18 05/21/18 06:59 14:59 22:59 Intake Total 222 Balance 222 Intake: Oral 222 Other: Voiding Method Toilet Toilet Toilet # Voids 1 - Constitutional General appearance: average body habitus - EENT EENT: PERRL, hearing intact, vision intact - Respiratory Respiratory: lungs clear - Cardiovascular Cardiovascular: regular rate, normal S1, normal S2 - Neurologic Neurologic examination: Mental status: She was awake alert and oriented 3 her speech was fluent there was no a aphasia or dysarthria. X Cranial nerve examination: Cranial nerves II through XII grossly intact Motor examination: 5 out of 5 throughout Sensory examination: Intact to light touch Deep tendon reflexes: Symmetric Gait: Not tested Results - Laboratory Findings CBC and BMP: 05/20/18 18:25 05/20/18 18:25 Abnormal Lab Findings: Abnormal Labs 05/20/18 05/20/18 05/21/18 18:25 18:25 05:22 Neutrophils # 8.1 H BUN 24 H Glucose 107 H HDL Cholesterol 80 H Assessment and Plan (1) TIA (transient ischemic attack) Current Visit: Yes Status: Acute SNOMED Code(s): 061281893 Plan: The patient is a 58-year-old woman with episode of speech disturbance lasting for a few minutes. The patient had a similar episode in September of this year. The patient has likely had a TIA. Recommend switching from aspirin to Plavix 75 mg a day. The patient will stay on Plavix and baby aspirin for a period of 3 -6 months and then decision will be made to stay on Plavix versus aspirin. Patient has had an MRI which showed small vessel ischemic changes. The patient has had a carotid ultrasound which did not show any significant stenosis. She had an echocardiogram which was unremarkable.
--- NOTE | 2018-05-25 08:17 | DS ---
DISCHARGE SUMMARY DATE OF ADMISSION: 05/20/2018 DATE OF DISCHARGE: 05/21/2018 FINAL DIAGNOSES: 1. Transient ischemic attack. 2. Anxiety, depression, not otherwise specified. 3. Gastroesophageal reflux disease. 4. Hypothyroidism. 5. Essential hypertension. 6. Chronic low back pain, being worked up by Dr. Burris and Dr. Perkins. HOSPITAL COURSE: This patient presented with loss of speech. The patient has had a TIA in the past. The patient's 2-D echocardiogram showed preserved LV function. No thrombus was reported. There was also soft tissue neck CT done, nothing was found. Patient was concerned about a mass, which actually probably she was feeling her voice box. EEG negative for any seizure activity. Brain MRI shows nonspecific white matter changes. Carotid Doppler to stenosis. The patient is feeling back to her baseline by the time of discharge. The patient's LDL did come back at 66. PHYSICAL EXAMINATION: On examination, temperature 98.3, pulse 66, respiration 18, blood pressure 106/68, pulse ox 96% on room air No neuro deficits. CONSULTATIONS: Dr. Jose Moss from Neurology. DISCHARGE MEDICATIONS: 1. Xanax 0.25 p.o. b.i.d. p.r.n. 2. Vitamin D3, 4000 units p.o. daily. 3. Celexa 20 mg q.h.s. 4. Pepcid 20 mg p.o. daily. 5. Iron 325 p.o. daily. 6. Synthroid 100 mcg Friday, Friday, Friday, , Friday, Friday. 7. Multivitamin 1 tablet p.o. daily. 8. Omeprazole 20 mg p.o. daily. 9. Potassium 10 mEq a day. 10.Vitamin B complex 1 capsule p.o. daily. 11.Restasis 1 drop to both eyes b.i.d. 12.Tylenol 650 mg q.6 p.r.n. 13.Calcium carbonate 500 mg p.o. t.i.d. 14.Prednisone taper. 15.Lipitor 40 mg q.h.s. 16.Plavix 75 mg p.o. daily. Follow up with Dr. Garner in 1 week. Follow up with Dr. Jose Reddy in 2 weeks. MMODL / IJN: [id number] /
== END 2018-05-21 21:26 | disposition home or self-care (01) ==
LOC: EC 16:54 → INTOOBSV 19:42 → 3SCARD 19:42
PROVIDERS: ADMIT Hospitalist; ATTEND Hospitalist
DX: G45.9 Transient cerebral ischemic attack, unspecified (principal); I10 Essential (primary) hypertension; K21.9 Gastro-esophageal reflux disease without esophagitis; E89.0 Postprocedural hypothyroidism; R53.82 Chronic fatigue, unspecified; F17.200 Nicotine dependence, unspecified, uncomplicated; M54.5 Low back pain; G89.29 Other chronic pain; R00.1 Bradycardia, unspecified; F41.9 Anxiety disorder, unspecified; F32.9 Major depressive disorder, single episode, unspecified; Z79.82 Long term (current) use of aspirin; Z79.890 Hormone replacement therapy; Z79.899 Other long term (current) drug therapy; Z88.6 Allergy status to analgesic agent; Z86.19 Personal history of other infectious and parasitic diseases; Z86.73 Personal history of transient ischemic attack (TIA), and cerebral infarction without residual deficits; Z82.49 Family history of ischemic heart disease and other diseases of the circulatory system; Z80.9 Family history of malignant neoplasm, unspecified; Z83.49 Family history of other endocrine, nutritional and metabolic diseases
CPT/HCPCS: 96372; 99285; 36415; 95816; 93005; 93306; 92523; 80061; 80053; 82550; 82553; 83605; 84484; 85025; 85610; 85730; 81003; 93880; 70491; 70450; 70553; G0378 ×2; J1650; A9585; Q9967

== ENCOUNTER → 2018-09-02 | Outpatient (CLI) | payer BC ==
--- NOTE | 2018-09-04 08:24 | MM ---
Reason for exam: screening (asymptomatic). Last mammogram was performed 1 year and 2 months ago. History: Patient is postmenopausal and is nulliparous. Took estrogen for 15 years. Took progesterone for 15 years. Physical Findings: A clinical breast exam by your physician is recommended on an annual basis and results should be correlated with mammographic findings. MG Screening Mammo w CAD Bilateral CC and MLO view(s) were taken. Prior study comparison: June 24, 2017, bilateral MG screening mammo w CAD. June 18, 2016, bilateral MG 3d screening mammo w/cad. There are scattered fibroglandular densities. No significant changes when compared with prior studies. ASSESSMENT: Negative, BI-RAD 1 RECOMMENDATION: Routine screening mammogram of both breasts in 1 year.
== END | disposition home or self-care (01) ==
LOC: RADMAMWWP 15:46
PROVIDERS: ATTEND Obstetrics & Gynecology
DX: Z12.31 Encounter for screening mammogram for malignant neoplasm of breast (principal)
CPT/HCPCS: 77067

== ENCOUNTER → 2018-09-03 | Outpatient (CLI) | payer BC ==
--- NOTE | 2018-09-03 18:27 | PN ---
PROGRESS NOTE DATE OF SERVICE: 09/03/2018. 58-year-old lady has been followed in [facility] for treatment of obstructive sleep apnea-hypopnea syndrome. Patient continues to use her CPAP equipment every night for the whole night without significant problems related to mask fitting, pressure or humidification. I checked her CPAP unit, range of the pressure 5-12, average pressure 8.9. Leak is only 1 L/minute. Apnea-hypopnea index only 1.4, which is perfect. Usage is practically every night 28/30 nights, average usage 4.6 hours. Some of the nights patient uses less than 4 hours. Roberts Sleepiness Scale today is 5, which is in normal range. About or 1 year ago, patient had episodes of TIA related to increasing blood pressure. Since that time, patient is on treatment for blood pressure. MEDICATIONS: Plavix, multivitamins, Prevacid, Synthroid, potassium supplement, Norvasc, citalopram, Restasis, Lipitor, baby aspirin, Alprazolam, Loratadine, iron supplement, B12, potassium. PHYSICAL EXAM: Patient in no distress. BP 106/74, HR 60, RR 14. Height 5 feet 3-1/2 inches, weight 149.2 pounds, body mass index is 26.1. The patient has lost 2 pounds since the previous visit, temperature 97.6, oxygen saturation at room air 95%. Oropharynx: Low position of soft palate, Mallampati 3-4. Neck supple, no JVD. Thyroid is not palpable. LUNGS Clear to percussion and to auscultation. Good air exchange. No wheezing or rhonchi. HEART S1, S2 regular. No murmurs, gallops, or rubs. ABDOMEN Soft and nontender. Bowel sounds are present. No organomegaly appreciated. EXTREMITIES No clubbing or cyanosis. BOARDMARKER Awake, alert, and oriented X3. Cranial nerves 2 to 7 intact. There is no fasciculation or atrophy. noted. No focal deficits observed. IMPRESSION: 1. Obstructive sleep apnea-hypopnea syndrome, on full control with CPAP. Patient demonstrated good compliance with treatment benefitting from treatment. 2. History of transient ischemic attack in September 2017. 3. History of depression. 4. Hypothyroidism. 5. Hypertension. 6. Acid reflux. 7. History of anxiety. 8. Back problems. PLAN: 1. Patient will continue to use CPAP equipment every night for the whole night with the same regimen of pressure. 2. Sleep hygiene with regular time in bed for at least 8 hours. 3. No driving if feeling sleepiness. 4. Precautions related to driving. No driving if feeling sleepiness. 5. We will maintain all necessary prescriptions for CPAP supplies including mask, tube, filters. Thank you very much for allowing me to participate in management of your patient. Sincerely, Kuldeep Tucker MD, PhD, FAASM Diplomat of [place] [employer] [place] [employer] [facility] [place] MMODL / IJN: [id number] /
== END | disposition home or self-care (01) ==
LOC: SLEEP 16:53
PROVIDERS: ATTEND Internal Medicine
DX: G47.33 Obstructive sleep apnea (adult) (pediatric) (principal); I10 Essential (primary) hypertension; E03.9 Hypothyroidism, unspecified; K21.9 Gastro-esophageal reflux disease without esophagitis; M53.9 Dorsopathy, unspecified; Z86.73 Personal history of transient ischemic attack (TIA), and cerebral infarction without residual deficits; Z86.59 Personal history of other mental and behavioral disorders; Z99.89 Dependence on other enabling machines and devices; Z79.02 Long term (current) use of antithrombotics/antiplatelets; Z79.82 Long term (current) use of aspirin; Z79.899 Other long term (current) drug therapy

== ENCOUNTER → 2018-11-11 | Outpatient (CLI) | payer BC ==
[2018-11-11 11:17] LABS: T4, Free (Free Thyroxine) 1.1 ng/dL (0.80-1.80)
[2018-11-12 02:58] LABS: Iron Saturation 25.62 (12.00-45.00)
== END | disposition home or self-care (01) ==
LOC: LABWHC1 06:55
PROVIDERS: ATTEND Internal Medicine Endocrinology, Diabetes & Metabolism
DX: E89.0 Postprocedural hypothyroidism (principal)
CPT/HCPCS: 36415; 82728; 83540; 83550; 84439; 84443

== ENCOUNTER → 2019-08-26 | Outpatient (CLI) | payer BC ==
--- NOTE | 2019-08-26 17:50 | PN ---
PROGRESS NOTE DATE OF SERVICE: 08/26/2019 [id number]-old lady had been followed in the [facility] Center for treatment of obstructive sleep apnea/hypopnea syndrome. The patient continued to use CPAP equipment but sometimes has problems related to her sinuses issues and difficulties to breathe through the use. [place] Sleepiness Scale today is 11. I checked her CPAP unit. Range of the pressure 5-12, average pressure is 9 cm of water, for the year is 8.5 cm of water. The used it for 228 nights with average usage 4.2 hours per night. Leak is 7 liters/minute which is normal. Apnea-hypopnea index for the year is only 1.6 which is perfect. MEDICATIONS: Synthroid, Lipitor, aspirin, Plavix, Norvasc, citalopram, Prevacid, Vitamin D3, Restasis, alprazolam, iron supplement, Vitamin B complex, tumeric, loratadine, acetaminophen as needed. PHYSICAL EXAM: During physical exam, patient in no distress. Blood pressure 124/75, heart rate 59, respiratory rate 14, height 5 feet 3-3/4 inches, weight 151.2 which is 2 pounds more than 1 year ago, temperature 97.6, oxygen saturation on room air 95%. HEENT: PERRLA, EOMI, evaluation of oropharynx showed tongue protrudes midline. Oropharynx: Low position of soft palate, Mallampati 3-4. NECK: Supple, no JVD. Thyroid is not palpable. LUNGS: Clear to percussion and to auscultation. Good air exchange. No wheezing or rhonchi. HEART: S1, S2 regular. No murmurs, gallops, or rubs. ABDOMEN: Soft and nontender. Bowel sounds are present. No organomegaly appreciated. EXTREMITIES: No clubbing or cyanosis. DIRECTOR FOOD AND BEVERAGE: Awake, alert, and oriented X3. Cranial nerves 2 to 7 intact. There is no fasciculation or atrophy. noted. No focal deficits observed. IMPRESSION: 1. Obstructive sleep apnea/hypopnea syndrome in full control with CPAP. Patient is benefitting from treatment. 2. History of transient ischemic attack in September 2017. 3. History of depression. 4. Hypothyroidism. 5. Hypertension. 6. Acid reflux. 7. Back problems. 8. History of anxiety. PLAN: 1. The patient will continue to use CPAP equipment every night for the whole night. 2. We discussed possibility to use nasal strips to help breathing through the nose. 3. Sleep hygiene with the time in bed for 7-1/2 hours. 4. No driving if feeling sleepiness. 5. Will maintain all necessary prescriptions for CPAP supplies including Simplus full facemask, heated tube, filters. Thank you very much for allowing me to participate in the management of your patient. Sincerely, Kuldeep Tucker MD, PhD, FAASM Diplomat of [place] [employer] Specialties [place] [employer] of [employer] Medicine Shoeshiner of [facility] [place] MMODL / RAYSHAWNN: [id number] /
== END | disposition home or self-care (01) ==
LOC: SLEEP 16:12
PROVIDERS: ATTEND Internal Medicine
DX: G47.33 Obstructive sleep apnea (adult) (pediatric) (principal); E03.9 Hypothyroidism, unspecified; I10 Essential (primary) hypertension; K21.9 Gastro-esophageal reflux disease without esophagitis; R93.89 Abnormal findings on diagnostic imaging of other specified body structures; Z99.89 Dependence on other enabling machines and devices; Z86.73 Personal history of transient ischemic attack (TIA), and cerebral infarction without residual deficits; Z86.59 Personal history of other mental and behavioral disorders; Z79.82 Long term (current) use of aspirin; Z79.890 Hormone replacement therapy; Z79.02 Long term (current) use of antithrombotics/antiplatelets; Z79.899 Other long term (current) drug therapy

== ENCOUNTER → 2020-03-02 | Outpatient (CLI) | payer BC ==
--- NOTE | 2020-03-02 19:53 | SFUN ---
SLEEP CENTER FOLLOW UP NOTE DATE OF SERVICE: 03/02/2020 This patient is a 60-year-old lady who has been followed in Sleep Center for treatment of obstructive sleep apnea-hypopnea syndrome. Patient continues to use her CPAP equipment practically every night. She usually sleeps well, but there are some nights when she has difficulties sleeping. [place] Sleepiness Scale is 5, which is normal. I checked her CPAP unit. Range of the pressure is 5 to 12 with average pressure 9.2 cm of water. Usage is 30/30 nights and 17/30 nights for more than 4 hours. Average usage 4.4 hours per night. Leak is 4 L/minute, which is very minimal. Apnea-hypopnea index is 2.4, which is normal. MEDICATIONS: Synthroid, Lipitor, CoQ-10, aspirin, Plavix, Norvasc, citalopram, Prevacid, vitamin D3, Restasis eyedrops, potassium supplement, calcium supplement, Xanax, iron supplement, vitamin B, turmeric. PHYSICAL EXAMINATION: GENERAL: A pleasant patient in no distress. VITAL SIGNS: BP 129/72, HR 72, RR 15, height 5 feet 4 inches, weight 154, body mass index 26.4, temperature 98.2, oxygen saturation at room air 98%. HEENT: PERRLA, EOMI. Evaluation of oropharynx showed tongue protrudes midline. Low position of soft palate. Mallampati III to IV. NECK: Supple. No JVD. Thyroid is not palpable. LUNGS: Clear to percussion and to auscultation. Good air exchange. No wheezing or rhonchi. HEART: S1, S2 regular. No murmurs, gallops or rubs. ABDOMEN: Soft and nontender. Bowel sounds are present. No organomegaly. EXTREMITIES: No clubbing or cyanosis. MITER SAW OPERATOR: Awake, alert, and oriented X3. Cranial nerves 2 to 7 intact. There is no fasciculation or atrophy. noted. No focal deficits observed. IMPRESSION: 1. Obstructive sleep apnea-hypopnea syndrome, borderline compliance with treatment, normal respiration on CPAP. 2. History of transient ischemic attack in September 2017. 3. History of depression. 4. Hypothyroidism. 5. Hypertension. 6. Acid reflux. 7. Back problems. 8. History of anxiety. 9. Status post hysterectomy. 10.History of chronic fatigue syndrome. 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 12.History of iron deficiency anemia. PLAN: 1. Patient will continue to use PAP equipment every night for the whole night. 2. Sleep hygiene with regular time in bed for at least 7-1/2 to 8 hours. 3. Precautions related to driving. No driving if feeling sleepiness. 4. I will maintain all necessary prescription for PAP supplies including mask, tube, filters. 5. Watching weight. 6. No driving if feeling sleepiness. 7. Follow-up visit in 6 months or earlier if patient has any problems. I discussed with the patient the necessity to use her machine longer every night and to use the CPAP unit also during naps. I discussed with the patient psychological techniques for treatment of insomnia; stimulus control, paradoxical intention, avoiding daytime naps. Thank you very much for allowing me to participate in the management of your patient. I spent around 30 minutes with the patient. Sincerely, Kuldeep Tucker MD, PhD, FAASM Diplomat of [place] [employer] Specialties [place] Board of Internal Medicine Visiting Housekeeper of [facility] [place] MMODL / RAYSHAWNN: [id number] /
== END | disposition home or self-care (01) ==
LOC: SLEEP 16:14
PROVIDERS: ATTEND Internal Medicine
DX: G47.33 Obstructive sleep apnea (adult) (pediatric) (principal); E03.9 Hypothyroidism, unspecified; I10 Essential (primary) hypertension; K21.9 Gastro-esophageal reflux disease without esophagitis; M43.8X9 Other specified deforming dorsopathies, site unspecified; Z90.710 Acquired absence of both cervix and uterus; Z86.73 Personal history of transient ischemic attack (TIA), and cerebral infarction without residual deficits; Z86.59 Personal history of other mental and behavioral disorders; Z87.898 Personal history of other specified conditions; Z86.2 Personal history of diseases of the blood and blood-forming organs and certain disorders involving the immune mechanism

== ENCOUNTER → 2020-04-13 | Outpatient (CLI) | payer BC ==
--- NOTE | 2020-04-13 10:37 | XR ---
EXAMINATION TYPE: XR chest 2V DATE OF EXAM: 04/13/2020 COMPARISON: 09/30/2017 HISTORY: 60-year-old female R05, cough TECHNIQUE: Frontal and lateral views FINDINGS: The cardiomediastinal silhouette, aorta, and pulmonary vasculature are within normal limits. Lungs an d pleural spaces are clear. IMPRESSION: No acute cardiopulmonary process.
== END | disposition home or self-care (01) ==
LOC: RADXRMAIN 10:12
PROVIDERS: ATTEND Family Medicine
DX: R05 Cough (principal)
CPT/HCPCS: 71046

== ENCOUNTER → 2020-09-07 | Outpatient (CLI) | payer BC ==
--- NOTE | 2020-09-07 15:03 | SFUN ---
SLEEP CENTER FOLLOW UP NOTE DATE OF SERVICE: 09/07/2020 A 60-year-old lady who had been followed in the Sleep Center for treatment of obstructive sleep apnea-hypopnea syndrome and difficulties to initiate sleep, insomnia. The patient continues to use her CPAP equipment every night for the whole night. Sometimes she does not use equipment for the whole night, but otherwise she is doing it every night. With trazodone, she significantly improved her process of falling asleep and she sleeps significantly better according to patient. I checked her CPAP unit. Range of the pressure 5-12, average pressure 9.9 cm of water. Usage is 30 out of 30 nights and 25 out of 30 nights for more than 4 hours, average 7.6 hours per night. Leak is 5 L/minute. Apnea-hypopnea index 2.5, which is totally normal. [place] Sleepiness Scale today is 5. MEDICATIONS: Synthroid 100 mcg once a day, Lipitor 40 mg once a day, aspirin 81 mg once a day, Plavix 75 mg once a day, citalopram 20 mg once a day, Prevacid 30 mg once a day, alprazolam 0.25 mg up to 2 times a day. PHYSICAL EXAMINATION: GENERAL: Patient in no distress. VITAL SIGNS: BP 117/69, HR 55, RR 15, height 5 feet 4 inches, weight 154.2, temperature 97.2, oxygen saturation at room air 98%, BMI 26.4. HEENT: PERRLA, EOMI. Oropharynx low position of soft palate. Mallampati 3-4. NECK: Supple, no JVD. Thyroid is not palpable. LUNGS: Clear to percussion and to auscultation. Good air exchange. No wheezing or rhonchi. HEART: S1, S2 regular. No murmurs, gallops, or rubs. ABDOMEN: Soft and nontender. Bowel sounds are present. No organomegaly appreciated. EXTREMITIES: No clubbing or cyanosis. CEMENT KILN OPERATOR: Awake, alert, and oriented X3. Cranial nerves 2 to 7 intact. There is no fasciculation or atrophy. noted. No focal deficits observed. IMPRESSION: 1. Obstructive sleep apnea-hypopnea syndrome. Patient demonstrated great compliance with treatment. She improved her compliance comparing with the previous visit, benefitting from treatment. 2. History of transient ischemic attack in 2018. 3. Tendency for bradycardia. 4. Hypertension. 5. Acid reflux. 6. Back problems. 7. History of anxiety. 8. Status post hysterectomy. 9. 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 10.History of Brigette-Swann Syndrome in 2016. 11.History of iron deficiency anemia. PLAN: 1. Patient will continue to take trazodone lowest dose 50 mg at bedtime. She has good response on that medication. 2. Patient will continue to use PAP equipment every night for the whole night. 3. Sleep hygiene with regular time in bed for at least 7-1/2 to 8 hours. 4. Precautions related to driving. No driving if feeling sleepiness. 5. I will maintain all necessary prescription for PAP supplies including mask, tube, filters. 6. Watching weight. 7. Follow-up visit in 6 months or earlier if patient has any problems. Thank you very much for allowing me to participate in management of your patient. Sincerely, Kuldeep Tucker MD, PhD, FAASM Diplomat of [place] [employer] Specialties [place] [employer] Internal Medicine Working Supervisor of [facility] [place] MMODL / IJN: [id number] /
== END | disposition home or self-care (01) ==
LOC: SLEEP 10:48
PROVIDERS: ATTEND Internal Medicine
DX: G47.33 Obstructive sleep apnea (adult) (pediatric) (principal); I10 Essential (primary) hypertension; K21.9 Gastro-esophageal reflux disease without esophagitis; M43.9 Deforming dorsopathy, unspecified; R00.1 Bradycardia, unspecified; Z86.59 Personal history of other mental and behavioral disorders; Z99.89 Dependence on other enabling machines and devices; Z79.890 Hormone replacement therapy; Z79.899 Other long term (current) drug therapy; Z79.01 Long term (current) use of anticoagulants; Z86.73 Personal history of transient ischemic attack (TIA), and cerebral infarction without residual deficits; Z90.710 Acquired absence of both cervix and uterus; Z86.2 Personal history of diseases of the blood and blood-forming organs and certain disorders involving the immune mechanism

== ENCOUNTER → 2020-12-18 | Outpatient (CLI) | payer BC ==
[2020-12-18 15:24] LABS: T4, Free (Free Thyroxine) 1.3 ng/dL (0.80-1.80)
== END | disposition home or self-care (01) ==
LOC: LABWHC1 09:53
PROVIDERS: ATTEND Internal Medicine
DX: E55.9 Vitamin D deficiency, unspecified (principal); E89.0 Postprocedural hypothyroidism
CPT/HCPCS: 36415; 82306; 84439; 84443

== ENCOUNTER → 2021-03-15 | Outpatient (CLI) | payer BC ==
--- NOTE | 2021-03-15 20:50 | SFUN ---
SLEEP CENTER FOLLOW UP NOTE DATE OF SERVICE: 03/15/2021 This 61-year-old lady has been followed in Sleep Center for treatment of obstructive sleep apnea-hypopnea syndrome. The patient continues to use CPAP equipment every night for the whole night. No problem related to the machine. She is getting her supplies on time. Recently the patient was found to have episodes of atrial fibrillation and bradycardia, under evaluation of cardiologists. [place] Sleepiness Scale today is 5, which is in normal range. I checked her CPAP unit. Range of the pressure is 5-12 with average pressure 10.4. Usage is 30/30 nights for more than 4 hours with average usage 7.8 hours per night. Leak is 4 L/minute, which is absolutely normal. Apnea-hypopnea index is 1.9, which is perfect. MEDICATIONS: 1. Synthroid 100 mcg once a day and half on Friday. 2. Lipitor 40 mg once a day. 3. Aspirin 81 mg once a day. 4. Citalopram 20 mg once a day. 5. Pantoprazole instead of Prevacid. 6. Alprazolam 0.25 mg one tablet up to 2 times a day. 7. Trazodone 50 mg at bedtime. 8. Xarelto 20 mg once a day. PHYSICAL EXAMINATION: GENERAL: Pleasant patient in no distress. VITAL SIGNS: BP 106/65, HR 66, RR 16, height 5 feet 4 inches, weight 150, body mass index 25.7, temperature 98.3, oxygen saturation at room air 94%. HEENT: PERRLA, EOMI, evaluation of oropharynx showed tongue protrudes midline. Low position of soft palate; Mallampati III to IV. NECK: Supple, no JVD. Thyroid is not palpable. LUNGS: Clear to percussion and to auscultation. Good air exchange. No wheezing or rhonchi. HEART: S1, S2 regular. No murmurs, gallops, or rubs. ABDOMEN: Soft and nontender. Bowel sounds are present. No organomegaly appreciated. EXTREMITIES: No clubbing or cyanosis. BOOKKEEPING MACHINE OPERATOR: Awake, alert, and oriented X3. Cranial nerves 2 to 7 intact. There is no fasciculation or atrophy. noted. No focal deficits observed. IMPRESSION: 1. Obstructive sleep apnea-hypopnea syndrome. The patient demonstrated 100% compliance with treatment, benefitting from treatment. Normal respiration on CPAP. 2. History of transient ischemic attack in 2018. 3. History of episodes of atrial fibrillation. 4. History of episodes of bradycardia. 5. Hypertension. 6. Acid reflux. 7. Back problems. 8. History of anxiety. 9. Status post hysterectomy. 10.Some difficulties initiating sleep, improved on trazodone at bedtime. 11.History of Brigette-Swann syndrome in 2016. 12.History of iron deficiency anemia. PLAN: 1. The patient will continue trazodone 50 mg at bedtime. 2. Patient will continue to use PAP equipment every night for the whole night. 3. Sleep hygiene with regular time in bed for at least 7-1/2 to 8 hours. 4. Precautions related to driving. No driving if feeling sleepiness. 5. I will maintain all necessary prescription for PAP supplies including mask, tube, filters. 6. Watching weight. 7. Follow-up visit in 6 months or earlier if patient has any problems. I spent 30 minutes with the patient and documentation. Thank you very much for allowing me to participate in the management of your patient. Sincerely, Kuldeep Tucker MD, PhD, FAASM Diplomat of [place] [employer] Specialties Sleep Medicine Board of [place] Board of Internal Medicine Fan Mail Clerk of [facility] [place] MMODL / IJN: [id number] /
== END ==
LOC: SLEEP 11:07
PROVIDERS: ATTEND Internal Medicine
DX: G47.33 Obstructive sleep apnea (adult) (pediatric) (principal); I48.91 Unspecified atrial fibrillation; I10 Essential (primary) hypertension; K21.9 Gastro-esophageal reflux disease without esophagitis; M54.9 Dorsalgia, unspecified; F41.9 Anxiety disorder, unspecified; F17.200 Nicotine dependence, unspecified, uncomplicated; Z90.710 Acquired absence of both cervix and uterus; Z86.39 Personal history of other endocrine, nutritional and metabolic disease; Z86.69 Personal history of other diseases of the nervous system and sense organs; Z86.73 Personal history of transient ischemic attack (TIA), and cerebral infarction without residual deficits; Z99.89 Dependence on other enabling machines and devices; Z79.01 Long term (current) use of anticoagulants; Z79.899 Other long term (current) drug therapy; Z88.6 Allergy status to analgesic agent

== ENCOUNTER 2021-05-09 11:10 | Emergency (ER) | payer BC ==
[2021-05-09 12:09] VITALS: TEMP 99
[2021-05-09] MEDS ORDERED: ONDANSETRON ODT 4 MG TAB PO STA (13:12)
--- NOTE | 2021-05-09 13:44 | XR ---
EXAMINATION TYPE: XR chest 2V DATE OF EXAM: 05/09/2021 COMPARISON: Chest x-ray April 13, 2020 HISTORY: Cough, COVID positive. TECHNIQUE: Frontal and lateral views of the chest are obtained. FINDINGS: There is new overlying loop recorder left anterior chest wall. There are new multifocal bi lateral opacities in the mid to lower lungs. The cardiac silhouette size is stable and within normal limits. The osseous structures are intact. IMPRESSION: New bilateral mid to lower lung multifocal opacities consistent with known covid-19 infec tion.
[2021-05-09 13:55] VITALS: BP 95/65; PULSE 70; RESP 18
--- NOTE | 2021-05-09 14:33 | ED ---
General Adult HPI - General Chief complaint: Upper Respiratory Infection Stated complaint: Covid+/nausea/cough/low o2 Time Seen by Provider: 05/09/21 12:42 Source: patient, RN notes reviewed Mode of arrival: ambulatory Limitations: no limitations - History of Present Illness Initial comments: 61-year-old female with a past medical history of chest pain, CVA, GERD presents to the emergency room for a chief complaint of cough. Patient has had a cough and covid symptoms for 12 days now. Did have an outpatient test positive on no . Patient has also had some nausea. Patient states she feels like it is getting into her lungs because her cough is worsening. Her oxygen was a little low at home however only for a brief time and is now back to normal. Patient has no other complaints at this time including shortness of breath, chest pain, abdominal pain, nausea or vomiting, headache, or visual changes. - Related Data Home Medications Medication Instructions Recorded Confirmed ALPRAZolam [Xanax] 0.25 mg PO BID PRN 09/30/17 05/20/18 Cholecalciferol [Vitamin D3 (25 4,000 unit PO DAILY 09/30/17 05/20/18 Mcg = 1000 Iu)] Citalopram Hydrobromide [CeleXA] 20 mg PO HS 09/30/17 05/20/18 Famotidine [Pepcid] 20 mg PO QAM 09/30/17 05/20/18 Ferrous Sulfate [Iron (65 MG 325 mg PO DAILY 09/30/17 05/20/18 Elemental)] Levothyroxine Sodium [Synthroid] 100 mcg PO [id number] 09/30/17 05/20/18 Multivitamins, Thera [Multivitamin 1 tab PO DAILY 09/30/17 05/20/18 (formulary)] Omeprazole 20 mg PO DAILY 09/30/17 05/20/18 Potassium Citrate [Potassium 10 meq PO DAILY 09/30/17 05/20/18 Citrate ER] Vitamin B Complex 1 cap PO DAILY 09/30/17 05/20/18 cycloSPORINE 0.05% OPHTH SOLN 1 drop BOTH EYES BID 09/30/17 05/20/18 [Restasis] Calcium Carbonate 500 mg PO TID 12/05/17 05/20/18 predniSONE See Taper PO DIRECTED 05/20/18 05/20/18 Previous Rx's Medication Instructions Recorded Acetaminophen Tab [Tylenol] 650 mg PO Q6HR PRN tab 10/01/17 Atorvastatin [Lipitor] 40 mg PO HS #30 tablet 05/21/18 Clopidogrel [Plavix] 75 mg PO DAILY #30 tab 05/21/18 Azithromycin [Zithromax Z-pack (6 250 mg PO DIRECTED #6 tab 05/09/21 tabs)] Dexamethasone [Decadron] 6 mg PO DAILY #7 tablet 05/09/21 Promethazine HCl/Codeine 5 ml PO Q6H PRN 3 Days #60 ml 05/09/21 [Promethazine-Codeine Syrup] Allergies Allergy/AdvReac Type Severity Reaction Status Date / Time No Known Allergies Allergy Verified 05/09/21 12:04 Review of Systems ROS Statement: Those systems with pertinent positive or pertinent negative responses have been documented in the HPI. ROS Other: All systems not noted in ROS Statement are negative. Past Medical History Past Medical History: Chest Pain / Angina, CVA/TIA, GERD/Reflux, Thyroid Disorder Additional Past Medical History / Comment(s): Chronic Fatigue, [place], History of Any Multi-Drug Resistant Organisms: None Reported Past Surgical History: Hernia Repair, Orthopedic Surgery Additional Past Surgical History / Comment(s): thyroidedectomy, laparascopy, stress test, LEFT WRIST SX , loop recorder Past Anesthesia/Blood Transfusion Reactions: Postoperative Nausea & Vomiting (PONV) Additional Past Anesthesia/Blood Transfusion Reaction / Comment(s): "long time to come out" Past Psychological History: Anxiety Smoking Status: Never smoker Past Alcohol Use History: Occasional Past Drug Use History: None Reported - Past Family History Mother Family Medical History: Coronary Artery Disease (CAD), Hyperlipidemia, Hypertension Father Family Medical History: Cancer General Exam Limitations: no limitations General appearance: alert, in no apparent distress Head exam: Present: atraumatic Eye exam: Present: normal appearance, PERRL, EOMI. Absent: scleral icterus, conjunctival injection ENT exam: Present: normal exam, mucous membranes moist Neck exam: Present: normal inspection, full ROM. Absent: tenderness Respiratory exam: Present: normal lung sounds bilaterally, other (cough noted). Absent: respiratory distress, wheezes Cardiovascular Exam: Present: regular rate, normal rhythm, normal heart sounds GI/Abdominal exam: Present: soft, normal bowel sounds. Absent: distended, t enderness Course Vital Signs 05/09/21 05/09/21 12:04 13:52 Temperature 99.0 F Pulse Rate 73 70 Respiratory 20 18 Rate Blood Pressure 102/60 95/65 O2 Sat by Pulse 95 96 Oximetry Medical Decision Making - Medical Decision Making vitals are stable.patient is 95% on room air. Patient is well-appearing. Patient does have a persistent cough noted. Chest x-ray shows new bilateral mid to lower lung multifocal opacities consistent with COVID-19 infection. we will start patient on Decadron and given 12 days of symptoms, azithromycin. We will send patient home with cough medicine. She will follow-up with her doctor. She will return here for any worsening symptoms. Disposition Clinical Impression: COVID-19, Pneumonia due to COVID-19 virus Disposition: HOME SELF-CARE Condition: Good Instructions (If sedation given, give patient instructions): Acute Cough (ED) Additional Instructions: take medications as directed. Follow-up with your doctor in one to 2 days. Return to the emergency room for any worsening symptoms. Prescriptions: Dexamethasone [Decadron] 6 mg PO DAILY #7 tablet Promethazine HCl/Codeine [Promethazine-Codeine Syrup] 5 ml PO Q6H PRN 3 Days #60 ml PRN Reason: Cough Azithromycin [Zithromax Z-pack (6 tabs)] 250 mg PO DIRECTED #6 tab Is patient prescribed a controlled substance at d/c from ED?: No Referrals: Geovani Garner DO [Primary Care Provider] - 1-2 days Time of Disposition: 14:30
== END 2021-05-09 14:50 | disposition home or self-care (01) ==
LOC: EC 11:10
DX: U07.1 COVID-19 (principal); J12.82 Pneumonia due to coronavirus disease 2019; K21.9 Gastro-esophageal reflux disease without esophagitis; F41.9 Anxiety disorder, unspecified; Z79.52 Long term (current) use of systemic steroids; Z79.890 Hormone replacement therapy; Z79.899 Other long term (current) drug therapy; Z82.49 Family history of ischemic heart disease and other diseases of the circulatory system
CPT/HCPCS: 71046; 99283

== ENCOUNTER → 2021-07-24 | Outpatient (CLI) | payer BC ==
--- NOTE | 2021-07-24 12:42 | XR ---
EXAMINATION TYPE: XR chest 2V DATE OF EXAM: 07/24/2021 COMPARISON: 05/09/2021 HISTORY: Shortness of breath TECHNIQUE: Frontal and lateral views of the chest are obtained. FINDINGS: Scattered senescent parenchymal changes noted. Hyperinflation compatible with COPD. No evidence for infiltrate. No evidence for atelectasis. Heart size is stable. Mediastinal structures are stable and grossly unremarkable. No evidence for hilar prominence. Degenerative changes dorsal spine. IMPRESSION: 1. No evidence for acute pulmonary disease.
== END | disposition home or self-care (01) ==
LOC: RADXRMAIN 12:19
PROVIDERS: ATTEND Family Medicine
DX: R06.02 Shortness of breath (principal)
CPT/HCPCS: 71046

== ENCOUNTER → 2021-08-11 | Outpatient (CLI) | payer BC ==
[2021-08-11 17:50] LABS: T4, Free (Free Thyroxine) 1.42 ng/dL (0.800-1.800)
== END | disposition home or self-care (01) ==
LOC: LABWHC1 11:53
PROVIDERS: ATTEND Internal Medicine
DX: E89.0 Postprocedural hypothyroidism (principal)
CPT/HCPCS: 36415; 84439; 84443

== ENCOUNTER → 2021-09-03 | Outpatient (CLI) | payer BC ==
--- NOTE | 2021-09-03 16:30 | CT ---
EXAMINATION TYPE: CT neck chest w/wo con DATE OF EXAM: 09/03/2021 COMPARISON: CT soft tissue neck 05/21/2018 HISTORY: 61-year-old female J38.00, paralysis of vocal cords, changes in voice CT DLP: 1165.6 mGycm Automated exposure control for dose reduction was used. TECHNIQUE: CT of the soft tissues of the neck as well as the chest were performed in sequence before and after IV contrast demonstration. Patient was injected with 100 mL of Isovue 300. Coronal and sagi ttal reconstructions performed. FINDINGS: NECK: Similar small left lobe of the thyroid gland. Right lobe is either markedly atrophic or surgically ab sent. Submandibular and parotid glands are satisfactory. Visualized intracranial structures, orbits and globes, and mastoid air cells are clear. Slight rightw nayeli nasal septal deviation. Mild mucosal thickening left ethmoid air cells. Otherwise, paranasal sinu ses are clear. Nasopharynx is clear. Mild symmetric hypertrophy of the tubal tonsils. Otherwise, oropharynx is clear. Prominent dental amalgam artifact limits visualization of some of the oral cavity soft tissues. Epiglottis and prevertebral soft tissue satisfactory. The aryepiglottic folds are relatively symmetric as are the piriform sinuses. No significant asymmetr y of the vocal folds is identified. Tracheal column appears clear. No cervical lymphadenopathy identified. Moderate atherosclerotic plaque left carotid bulb causing approximately 50% narrowing. Moderate to advanced degenerative disc disease C5-C7 levels. Degenerative change C1 dens articulation . CHEST: Loop recorder device projects over the left chest. Heart upper limits of normal in size without pericardial effusion. Ascending aorta is ectatic at 3.8 cm. Bovine configuration to the aortic arch. No thoracic lymphadenopathy by CT size criteria. Mild emphysematous change. Prominent patchy opacity and groundglass changes in the lower lungs. There may be some associated mild bronchiolectasis. More focal opacity in the periphery of the left base m easures 1.7 cm, can be reassessed at follow-up. No pleural effusion. Small hiatal hernia. Tiny hilar splenule. 9 mm cortical hypodensity, likely cyst medial upper pole ri ght kidney. BONES: Mild degenerative disc disease lower thoracic spine. Some mild bridging anterior endplate spon dylosis midthoracic spine. IMPRESSION: NECK: 1. There is a mild symmetric hypertrophy of the tubal tonsils. Otherwise, no discrete mucosal lesion is identified. No significant asymmetry is identified of the vocal folds. 2. No mass or lymphadenopathy identified in the neck. CHEST: 3. COPD with mild emphysema. 4. Prominent patchy changes and groundglass within the lower lungs. There may be subtle underlying br onchiolectasis. Consider interstitial pneumonitis such as DIP or NSIP. Postinfectious pleural parench ymal scarring is also possible. 3 month follow-up to assess for any interval clearing or change. 5. More focal 1.7 cm subpleural density at the left base probably scarring. Three-month follow-up to exclude a suspicious pulmonary nodule here. 6. No suspicious lymphadenopathy or mediastinal mass. 7. Small hiatal hernia.
== END | disposition home or self-care (01) ==
LOC: RADCTMAIN 14:55
PROVIDERS: ATTEND Otolaryngology
DX: J43.9 Emphysema, unspecified (principal); R91.8 Other nonspecific abnormal finding of lung field; K44.9 Diaphragmatic hernia without obstruction or gangrene
CPT/HCPCS: 70492; 71270; Q9967

== ENCOUNTER → 2021-09-12 | Outpatient (CLI) | payer BC ==
--- NOTE | 2021-09-12 18:13 | SFUN ---
SLEEP CENTER FOLLOW UP NOTE DATE OF SERVICE: 09/12/2021 This 61-year-old lady has been followed in Sleep Center for treatment of obstructive sleep apnea-hypopnea syndrome. The patient continues to use her CPAP equipment on a regular basis. She had COVID-19 in April of 2021. At that time she was not able to use CPAP equipment. Otherwise, she is getting her supplies on time. [place] Sleepiness Scale today is 6. I checked her CPAP unit. Range of the pressure is 5 to 12, average pressure 10 cm of water. Usage is 30/30 nights and 29/30 nights for more than 4 hours, average 6.8 hours per night, which is great compliance. Leak is 20 L/minute, which is borderline. Apnea- hypopnea index is 1.3, which is totally normal. I checked the air filter. It is in good condition. MEDICATIONS: 1. Synthroid 100 mcg once a day, half on Friday and none on Friday. 2. Lipitor 40 mg once a day. 3. Xarelto 20 mg once a day. 4. Citalopram 20 mg once a day. 5. Trazodone 50 mg once a day. 6. Protonix 40 mg once a day. 7. Fluticasone 50 mg once a day. 8. Azelastine nasal spray twice a day. 9. Flovent 1 puff twice a day. 10.Ventolin 2 puffs up to every 4 hours. 11.Alprazolam 0.25 mg twice a day. 12.Vitamins. 13.Iron supplement. PHYSICAL EXAMINATION: GENERAL: Pleasant patient in no distress. VITAL SIGNS: BP 110/61, HR 61, RR 16, height 5 feet 4 inches, weight 151.4 pounds, temperature 97.1, oxygen saturation at room air 96%. HEENT: PERRLA, EOMI, evaluation of oropharynx showed tongue protrudes midline. NECK: Supple, no JVD. Thyroid is not palpable. LUNGS: Clear to percussion and to auscultation. Good air exchange. No wheezing or rhonchi. HEART: S1, S2 regular. No murmurs, gallops, or rubs. ABDOMEN: Soft and nontender. Bowel sounds are present. No organomegaly appreciated. EXTREMITIES: No clubbing or cyanosis. DRUG SAFETY SPECIALIST: Awake, alert, and oriented X3. Cranial nerves 2 to 7 intact. There is no fasciculation or atrophy. noted. No focal deficits observed. IMPRESSION: 1. Obstructive sleep apnea-hypopnea syndrome. Patient demonstrated great compliance with treatment, benefitting from treatment. Normal respiration on CPAP. 2. Status post COVID-19 in April of 2021. 3. History of episodes of atrial fibrillation. 4. History of episodes of bradycardia. 5. Hypertension. 6. Acid reflux. 7. History of anxiety. 8. Difficulties with initiating sleep; improved on trazodone at bedtime. 9. History of Brigette-Swann syndrome in 2016. 10.History of iron deficiency anemia. 11.Hypothyroidism. 12.History of transient ischemic attack in 2018. PLAN: 1. Patient will continue to use PAP equipment every night for the whole night. 2. Sleep hygiene with regular time in bed for at least 7-1/2 to 8 hours. 3. Precautions related to driving. No driving if feeling sleepiness. 4. I will maintain all necessary prescription for PAP supplies including mask, tube, filters. 5. Watching weight. 6. Follow-up visit in 6 months or earlier if patient has any problems. Thank you very much for allowing me to participate in the management of your patient. Sincerely, Kuldeep Tucker MD, PhD, FAASM Diplomat of [place] [employer] Sleep Medicine Board of [place] [employer] Diesel Engine As[employer]er of [facility] [place] MMFRANCOISE / URIEL: [id number] /
== END ==
LOC: SLEEP 11:19
PROVIDERS: ATTEND Internal Medicine
DX: G47.33 Obstructive sleep apnea (adult) (pediatric) (principal); Z99.89 Dependence on other enabling machines and devices; Z86.16 Personal history of COVID-19; I48.91 Unspecified atrial fibrillation; I10 Essential (primary) hypertension; R00.1 Bradycardia, unspecified; K21.9 Gastro-esophageal reflux disease without esophagitis; F41.9 Anxiety disorder, unspecified; E03.9 Hypothyroidism, unspecified; Z86.73 Personal history of transient ischemic attack (TIA), and cerebral infarction without residual deficits; Z87.39 Personal history of other diseases of the musculoskeletal system and connective tissue; Z79.890 Hormone replacement therapy

== ENCOUNTER → 2021-10-12 | Outpatient (CLI) | payer BC ==
--- NOTE | 2021-10-16 10:06 | PE ---
Nuclear medicine PET/CT HISTORY: Solitary pulmonary nodule initial Patient received 11.4 mCi F-18 FDG intravenously and delayed scanning was performed from the skull ba se to the mid thighs. Localization and attenuation correction CT scan was performed. Correlation to CT scan dated 09/03/2021 Average mediastinal uptake SUV 1.7, average liver uptake SUV 2.4 Chest and neck: There is no cervical or supraclavicular adenopathy. There is no mediastinal, axillary, or hilar adenopathy. No abnormal uptake identified within the ches t. No pleural pericardial effusion. Patchy density at the lung bases, parenchymal bands again noted, no evident mass. ABDOMEN: No suspicious uptake. No retroperitoneal adenopathy or adrenal mass, no evident liver mass. No ascites. No evident bowel obstruction. Osseous structures show no suspicious uptake. Degenerative disc changes and facet arthropathy noted i n the lumbar spine IMPRESSION: No suspicious uptake
== END | disposition home or self-care (01) ==
LOC: RADXRMAIN 07:33
PROVIDERS: ATTEND Internal Medicine Critical Care Medicine
DX: R91.1 Solitary pulmonary nodule (principal)
CPT/HCPCS: 78815; A9552

== ENCOUNTER → 2022-01-01 | Outpatient (CLI) | payer BC ==
--- NOTE | 2022-01-02 07:55 | MM ---
Reason for Exam: Screening (asymptomatic). Last mammogram was performed 1 year(s) and 1 month(s) ago. Patient History: Menarche at age 10. Patient has no children. Left ovary removed at age 33. Hysterectomy at age 53. Postmenopausal. Patient used Estrogen for 15 years. Patient used Progesterone for 15 years. Risk Values: [place] 5 year model risk: 1.7%. NCI Lifetime model risk: 7.4%. Prior Study Comparison: 06/18/2016 Bilateral Screening Mammogram, [facility]. 06/24/2017 Bilateral Screening Mammogram, [facility]. 09/02/2018 Bilateral Screening Mammogram, [facility]. 08/27/2019 Bilateral MG screening mammo w/o cad, [facility]. 11/27/2020 Bilateral MG screening mammo w/o cad, [facility]. Tissue Density: There are scattered fibroglandular densities. Findings: Analyzed By CAD. There is no suspicious group of microcalcifications or new suspicious mass in either breast. Overall Assessment: Negative, BI-RAD 1 Management: Screening Mammogram of both breasts in 1 year. A clinical breast exam by your physician is recommended on an annual basis and results should be correlated with mammographic findings. Electronically signed and approved by: David Michaels M.D. Radiologis
--- NOTE | 2022-01-02 15:22 | BD ---
EXAMINATION TYPE: Axial Bone Density DATE OF EXAM: 01/01/2022 COMPARISON: Prior DEXA bone scan report 2017. CLINICAL HISTORY: 61 years year old Female. ICD-10 CODE: M85.80 Osteopenia M89.9 Disorder of bone Height: 5 FT 4 IN Weight: 145 FRAX RISK QUESTIONS: Alcohol (3 or more units per day): NO Family History (Parent hip fracture): NO Glucocorticoids (More than 3mos): YES (Ex: prednisone, prednisolone, methylprednisolone, dexamethasone, and hydrocortisone). History of Fracture in Adulthood: YES Secondary Osteoporosis: 1. Type 1 Diabetes: NO 2. Hyperthyroidism: NO 3. Menopause before 45: YES 4. Malnutrition: NO 5. Chronic liver disease: NO Rheumatoid Arthritis: NO Current Tobacco Use: NO RISK FACTORS HISTORY OF: History of Wrist Fracture: LEFT WRIST When: 7 YEARS AGO Surgery to Spine/Hip(right/left)/Wrist (right/left): NO Family History of Osteoporosis: UNSURE Active: YES Diet low in dairy products/other sources of calcium: NO Postmenopausal woman: AGE 27 PREMATURE OVARIAN FAILURE Take estrogen and/or progesterone medications: NO Lost more than 2 inches in height since high school: Frequent falls: NO Poor Health: GOOD Hyperparathyroidism: NO Adrenal Insufficiency: NO MEDICATIONS: Thyroid Medications: YES Which medication: SYNTHROID How Long: OVER 20 YEARS Additional Medications: SYNTHROID, POTASSIUM CHLORIDE, LIPITOR, DEPRESSION MEDS, XARELTO,, TRAZODONE, ACID REFLUX MEDS ,FLONASE, ALLERGY MEDS Additional History: EXAM MEASUREMENTS: Bone mineral densitometry was performed using the [employer] System. Bone mineral density as measured about the Lumbar spine is: ----- L1-L4(G/cm2): 1.426 T Score Values are as follows: ----- L1: 0.8 ----- L2: 2.6 ----- L3: 3.1 ----- L4: 1.5 ----- L1-L4: 2.1 PREV UNAVAILABLE Bone mineral density about the R hip (g/cm2): 0.794 Bone mineral density about the L hip (g/cm2): 0.662 T Score values are as follows: -----R Neck: -1.8 -----L Neck: -2.7 -----R Total: -1.1 -----L Total: -1.8 PREV UNAVAILABLE FRAX%s: The graph provided illustrates a 23.2 % chance for a major osteoporotic fx and a 5.7 % chance for the hips probability for fx in 10 years time. IMPRESSION: Osteoporosis (T Score less than -2.5) femoral neck level left hip is now present. There is increased fracture risk and therapy is usually indicated based on age. Re-Screen 1-2 years. NOTE: T-SCORE=SD OF THE YOUNG ADULT MEAN.
== END | disposition home or self-care (01) ==
LOC: RADBDWWP 15:31
PROVIDERS: ATTEND Obstetrics & Gynecology
DX: Z12.31 Encounter for screening mammogram for malignant neoplasm of breast (principal); M85.89 Other specified disorders of bone density and structure, multiple sites; Z78.0 Asymptomatic menopausal state
CPT/HCPCS: 77067; 77080

== ENCOUNTER → 2022-02-08 | Outpatient (CLI) | payer BC ==
[2022-02-08 19:14] LABS: ALT 21 U/L (8-44); AST 23 U/L (13-35); African American GFR (CKD) 73.5 (60.0-200.0); Albumin 4.1 g/dL (3.8-4.9); Albumin/Globulin Ratio 1.99 (1.60-3.17); Alkaline Phosphatase 72 U/L (41-126); BUN/Creat Ratio 18.34 Ratio (12.00-20.00); Blood Urea Nitrogen 17.5 mg/dL (9.0-27.0); Calcium 9.4 mg/dL (8.7-10.3); Carbon Dioxide 23.6 mmol/L (20.0-27.5); Chloride 108 mmol/L (96-109); Chol/HDL Ratio 2.43 Ratio; Globulin 2.1 g/dL (1.6-3.3); Glucose 94 mg/dL (70-110); LDL Cholesterol,Calculated 74.8 mg/dL (0.0-131.0); Non-African American GFR(CKD) 63.4 (60.0-200.0); Potassium 3.7 mmol/L (3.5-5.5); Sodium 143 mmol/L (135-145); Total Protein 6.1 g/dL (6.2-8.2); VLDL Calculation 12.94 mg/dL (5.00-40.00)
== END | disposition home or self-care (01) ==
LOC: LABWHC1 11:45
PROVIDERS: ATTEND Family Medicine
DX: E89.0 Postprocedural hypothyroidism (principal); E55.9 Vitamin D deficiency, unspecified; G45.9 Transient cerebral ischemic attack, unspecified; M81.0 Age-related osteoporosis without current pathological fracture
CPT/HCPCS: 36415; 80053; 80061; 82306; 84439; 84443

== ENCOUNTER → 2022-03-28 | Outpatient (CLI) | payer BC ==
--- NOTE | 2022-03-28 12:37 | P.PN ---
Subjective DATE: 03/28/2022 FOLLOW UP VISIT. Patient with obstructive sleep apnea hypopnea syndrome return to sleep center for follow-up visit. Information from previous visit have been reviewed. Patient is using PAP equipment every night for the whole night, getting PAP supplies in time. The patient does not have significant problems with the mask. Some nights humidifier does not work according to patient. [place] sleepiness scale is 7, which is normal. I checked PAP unit. PAP unit pressure 5-12, average 10 cm H2O. Usage is 100 % for more then 4 hours, average 7.4 hours per night. Leak is 4 l/m, which is in perfect range. Apnea Hypopnea Index is 1.3, which is normal. MEDICATIONS:1. Synthroid 75 g once a day 2. Lipitor 40 mg once a day 3. Citalopram 20 mg at nighttime 4. Trazodone 50 mg once a day 5. Protonix 40 mg once a day 6. And Ventolin 7. Xanax 0.25 milligrams twice a day's needed 8. Flovent 9. Xarelto 20 mg once a day During physical exam: GENERAL: A pleasant patient without any distress. VITAL SIGNS: BP 113/73, HR 57, RR 14, weight 144.2, temperature 97.0, oxygen saturation at room air 97 % . HEENT: PERRLA, EOMI.low position of soft palate. NECK: Supple. No JVD. LUNGS: Clear to percussion and to auscultation. Good air exchange. No wheezing or rhonchi. HEART: S1, S2 regular. ABDOMEN: Soft and nontender.[] EXTREMITIES: No clubbing or cyanosis. ELECTRO MECHANICAL DESIGNER: Awake, alert, and oriented x3. No focal deficit. Impressions: 1. Obstructive sleep apnea-hypopnea syndrome. Patient demonstrated great compliance with treatment, benefiting from treatment. 2. History of episodes of atrial fibrillation. 3. Status post Covid 19 in April 2021. 4. Hypertension. 5. Acid reflux. 6. History of anxiety. 7. History of difficulties to initiate sleep improved. 8. History of Brigette-Swann syndrome in 2016. 9. History of iron deficiency anemia on iron supplement. 10. Hypothyroidism. 11. History of TIA in 2018. Plan: 1. Continue using PAP equipment every night for the whole night. Prescription to replace CPAP unit because sometimes humidifier doesn't work and her CPAP unit more than 5-year-old. 2. To change air filter at least 1-2 times per month. 3. PAP unit should stay lower then position of the head. 4. Advised patient to remove all remaining water from humidifier canister daily and make it dry after each usage. Refill canister with fresh distilled water before each usage. 5. Sleep hygiene with regular time in bed for at least 8 hours. 6. Precautions related to driving. No driving if feel any sleepiness. 7. I will maintain prescription for PAP supplies including mask, tube, filters. 8. Follow up visit in 1-2 months after patient will get new CPAP unit. 9. Watching weight. Thank you very much for allowing me to participate in the management of your patient. Kuldeep Tucker MD, PhD, FAASM. Diplomat of [place] [employer], Sleep Medicine Board by [place] [employer] Gymnastic Coach of [facility] [place]
== END ==
LOC: SLEEP 10:58
PROVIDERS: ATTEND Internal Medicine
DX: G47.33 Obstructive sleep apnea (adult) (pediatric) (principal); I10 Essential (primary) hypertension; K21.9 Gastro-esophageal reflux disease without esophagitis; Z86.59 Personal history of other mental and behavioral disorders; Z86.2 Personal history of diseases of the blood and blood-forming organs and certain disorders involving the immune mechanism; Z86.73 Personal history of transient ischemic attack (TIA), and cerebral infarction without residual deficits; Z99.89 Dependence on other enabling machines and devices; F17.200 Nicotine dependence, unspecified, uncomplicated; Z86.19 Personal history of other infectious and parasitic diseases; Z79.899 Other long term (current) drug therapy
CPT/HCPCS: 99212

== ENCOUNTER 2022-04-09 17:25 | Inpatient (IN) | payer BC ==
[2022-04-09] MEDS ORDERED: DILTIAZEM DRIP BOLUS FROM BAG 1 MG SOLN IV ONE (17:43)
[2022-04-09] MEDS ORDERED: SODIUM CHLORIDE 0.9% 500 ML 500 ML IV STA (17:43)
[2022-04-09] MEDS ORDERED: LORazepam 2 MG/ML INJ IV STA (17:43)
[2022-04-09] MEDS ORDERED: DILTIAZEM 125 MG in SODIUM CHLORIDE 0.9% 100 ML IV SCH (17:45)
--- NOTE | 2022-04-09 17:46 | ED ---
General Adult HPI - General Chief complaint: Chest Pain Stated complaint: high heart rate Time Seen by Provider: 04/09/22 17:35 Source: patient, RN notes reviewed, old records reviewed Mode of arrival: ambulatory Limitations: no limitations - History of Present Illness Initial comments: This is a 62-year-old female presents emergency Department with a possible history of atrial fibrillation in the past. Patient is on a blood thinner. Patient states today she took a shower cut out felt a little lightheaded and felt as though her heart was racing so she put her pulse oximeter on and it showed that her heart rate was up to 160 beats a minute. Patient denies chest pain. Patient shortness of breath. Patient states she did have a little lightheadedness. Patient denies any recent fever chills or cough. Patient denies abdominal pain patient denies nausea vomiting diarrhea. Patient denies any swelling to the legs or calf tenderness. Patient denies any headache. - Related Data Home Medications Medication Instructions Recorded Confirmed ALPRAZolam [Xanax] 0.25 mg PO DAILY PRN 09/30/17 04/09/22 Citalopram Hydrobromide [CeleXA] 20 mg PO HS 09/30/17 04/09/22 Ferrous Sulfate [Iron (65 MG 325 mg PO DAILY 09/30/17 04/09/22 Elemental)] Potassium Citrate [Potassium 10 meq PO Q48H 09/30/17 04/09/22 Citrate ER] cycloSPORINE 0.05% OPHTH SOLN 1 drop BOTH EYES BID 09/30/17 04/09/22 [Restasis] Alendronate Sodium [Fosamax] 70 mg PO WE 04/09/22 04/09/22 Azelastine HCl 137 mcg NASAL DAILY PRN 04/09/22 04/09/22 Cholecalciferol [Vitamin D3 (25 50 mcg PO DAILY 04/09/22 04/09/22 Mcg = 1000 Iu)] Cyanocobalamin (Vitamin B-12) 1,000 mcg PO DAILY 04/09/22 04/09/22 [Vitamin B-12] Fluticasone Nasal [place] [Flonase 1 spray EA NOSTRIL DAILY PRN 04/09/22 04/09/22 Nasal [place]] L.acidoph,Paracasei, B.lactis 1 cap PO DAILY 04/09/22 04/09/22 [Probiotic] Levothyroxine Sodium [Synthroid] 75 mcg PO DAILY 04/09/22 04/09/22 Pantoprazole Sodium [Protonix] 40 mg PO HS 04/09/22 04/09/22 Rivaroxaban [Xarelto] 20 mg PO HS 04/09/22 04/09/22 traZODone HCL [Desyrel] 50 mg PO HS 04/09/22 04/09/22 Previous Rx's Medication Instructions Recorded Atorvastatin [Lipitor] 40 mg PO HS #30 tablet 05/21/18 Allergies Allergy/AdvReac Type Severity Reaction Status Date / Time No Known Allergies Allergy Verified 04/09/22 17:33 Review of Systems ROS Statement: Those systems with pertinent positive or pertinent negative responses have been documented in the HPI. ROS Other: All systems not noted in ROS Statement are negative. Past Medical History Past Medical History: Atrial Fibrillation, Chest Pain / Angina, CVA/TIA, GERD/Reflux, Thyroid Disorder Additional Past Medical History / Comment(s): Chronic Fatigue, [place], History of Any Multi-Drug Resistant Organisms: None Reported Past Surgical History: Hernia Repair, Orthopedic Surgery Additional Past Surgical History / Comment(s): thyroidedectomy, laparascopy, stress test, LEFT WRIST SX , loop recorder Past Anesthesia/Blood Transfusion Reactions: Postoperative Nausea & Vomiting (PONV) Additional Past Anesthesia/Blood Transfusion Reaction / Comment(s): "long time to come out" Past Psychological History: Anxiety Smoking Status: Never smoker Past Alcohol Use History: Occasional Past Drug Use History: None Reported - Past Family History Mother Family Medical History: Coronary Artery Disease (CAD), Hyperlipidemia, Hypertension Father Family Medical History: Cancer General Exam - General Exam Comments Initial Comments: GENERAL: Patient is well-developed and well-nourished. Patient is nontoxic and well- hydrated and is in mild distress. ENT: Neck is soft and supple. No significant lymphadenopathy is noted. Oropharynx is clear. Moist mucous membranes. Neck has full range of motion without eliciting any pain. EYES: The sclera were anicteric and conjunctiva were pink and moist. Extraocular movements were intact and pupils were equal round and reactive to light. Eyelids were unremarkable. PULMONARY: Unlabored respirations. Good breath sounds bilaterally. No audible rales rhonchi or wheezing was noted. CARDIOVASCULAR: Patient is tachycardic at about 150 beats a minute. ABDOMEN: Soft and nontender with normal bowel sounds. SKIN: Skin is clear with no lesions or rashes and otherwise unremarkable. NEUROLOGIC: Patient is alert and oriented x3. Cranial nerves II through XII are grossly intact. Motor and sensory are also intact. Normal speech, volume and content. Symmetrical smile. MUSCULOSKELETAL: Normal extremities with adequate strength and full range of motion. No lower extremity swelling or edema. No calf tenderness. LYMPHATICS: No significant lymphadenopathy is noted PSYCHIATRIC: Patient is mildly anxious Limitations: no limitations Course Vital Signs 04/09/22 04/09/22 04/09/22 17:31 18:23 18:38 Temperature 98.1 F Pulse Rate 146 H 126 H 69 Respiratory 18 18 18 Rate Blood Pressure 111/78 119/97 110/76 O2 Sat by Pulse 99 99 96 Oximetry Medical Decision Making - Medical Decision Making EKG shows possibly atrial flutter 131 bpm DC interval is 145 QRS is 96 Q-T intervals 325 QTC is 402. Patient's EKG shows no ST segment elevation or dep ression. Chest x-ray shows no acute abnormality. Patient was placed on Cardizem after Cardizem bolus patient did convert to normal sinus rhythm. I admitted the patient to use to . [facility] agreed to admit the patient I wrote admit orders I consulted cardiology - Lab Data Result diagrams: 04/09/22 17:57 04/09/22 17:57 Lab Results 04/09/22 04/09/22 04/09/22 Range/Units 17:57 17:57 17:57 WBC 5.1 (3.8-10.6) k/uL RBC 4.40 (3.80-5.40) m/uL Hgb 13.2 (11.4-16.0) gm/dL Hct 38.3 (34.0-46.0) % MCV 87.2 (80.0-100.0) fL MCH 30.1 (25.0-35.0) pg MCHC 34.5 (31.0-37.0) g/dL RDW 13.3 (11.5-15.5) % Plt Count 236 (150-450) k/uL MPV 8.4 Neutrophils % 55 % Lymphocytes % 34 % Monocytes % 5 % Eosinophils % 3 % Basophils % 0 % Neutrophils # 2.8 (1.3-7.7) k/uL Lymphocytes # 1.7 (1.0-4.8) k/uL Monocytes # 0.3 (0-1.0) k/uL Eosinophils # 0.1 (0-0.7) k/uL Basophils # 0.0 (0-0.2) k/uL PT 11.0 (9.0-12.0) sec INR 1.0 (<1.2) APTT 27.0 (22.0-30.0) sec Sodium 140 (137-145) mmol/L Potassium 3.5 (3.5-5.1) mmol/L Chloride 108 H (98-107) mmol/L Carbon Dioxide 20 L (22-30) mmol/L Anion Gap 12 mmol/L BUN 27 H (7-17) mg/dL Creatinine 0.88 (0.52-1.04) mg/dL Est GFR (CKD-EPI)AfAm 81 (>60 ml/min/1.73 sqM) Est GFR (CKD-EPI)NonAf 70 (>60 ml/min/1.73 sqM) Glucose 111 H (74-99) mg/dL Calcium 9.3 (8.4-10.2) mg/dL Magnesium 2.0 (1.6-2.3) mg/dL Total Bilirubin 0.6 (0.2-1.3) mg/dL AST 31 (14-36) U/L ALT 28 (4-34) U/L Alkaline Phosphatase 83 (38-126) U/L Troponin I (0.000-0.034) ng/mL Total Protein 6.7 (6.3-8.2) g/dL Albumin 4.4 (3.5-5.0) g/dL TSH 0.641 (0.465-4.680) mIU/L 04/09/22 Range/Units 17:57 WBC (3.8-10.6) k/uL RBC (3.80-5.40) m/uL Hgb (11.4-16.0) gm/dL Hct (34.0-46.0) % MCV (80.0-100.0) fL MCH (25.0-35.0) pg MCHC (31.0-37.0) g/dL RDW (11.5-15.5) % Plt Count (150-450) k/uL MPV Neutrophils % % Lymphocytes % % Monocytes % % Eosinophils % % Basophils % % Neutrophils # (1.3-7.7) k/uL Lymphocytes # (1.0-4.8) k/uL Monocytes # (0-1.0) k/uL Eosinophils # (0-0.7) k/uL Basophils # (0-0.2) k/uL PT (9.0-12.0) sec INR (<1.2) APTT (22.0-30.0) sec Sodium (137-145) mmol/L Potassium (3.5-5.1) mmol/L Chloride (98-107) mmol/L Carbon Dioxide (22-30) mmol/L Anion Gap mmol/L BUN (7-17) mg/dL Creatinine (0.52-1.04) mg/dL Est GFR (CKD-EPI)AfAm (>60 ml/min/1.73 sqM) Est GFR (CKD-EPI)NonAf (>60 ml/min/1.73 sqM) Glucose (74-99) mg/dL Calcium (8.4-10.2) mg/dL Magnesium (1.6-2.3) mg/dL Total Bilirubin (0.2-1.3) mg/dL AST (14-36) U/L ALT (4-34) U/L Alkaline Phosphatase (38-126) U/L Troponin I <0.012 (0.000-0.034) ng/mL Total Protein (6.3-8.2) g/dL Albumin (3.5-5.0) g/dL TSH (0.465-4.680) mIU/L Critical Care Time Critical Care Time: Yes Total Critical Care Time: 35 Disposition Clinical Impression: Atrial flutter with rapid ventricular response Disposition: ADMITTED IP TO THIS HOSP Referrals: Geovani Garner DO [Primary Care Provider] - 1-2 days Time of Disposition: 20:42
[2022-04-09 18:11] LABS: Basophils % (A) 0 %; Eosinophils # (A) 0.1 k/uL (0-0.7); Eosinophils % (A) 3 %; HCT 38.3 % (34.0-46.0); HGB 13.2 gm/dL (11.4-16.0); Lymphocytes # (A) 1.7 k/uL (1.0-4.8); Lymphocytes % (A) 34 %; MCH 30.1 pg (25.0-35.0); MCHC 34.5 g/dL (31.0-37.0); MCV 87.2 fL (80.0-100.0); Mean Platelet Volume 8.4; Monocytes # (A) 0.3 k/uL (0-1.0); Monocytes % (A) 5 %; Neutrophils # (A) 2.8 k/uL (1.3-7.7); Neutrophils % (A) 55 %; Platelet Count 236 k/uL (150-450); RDW 13.3 % (11.5-15.5); WBC 5.1 k/uL (3.8-10.6)
[2022-04-09 18:32] LABS: Albumin 4.4 g/dL (3.5-5.0); Calcium 9.3 mg/dL (8.4-10.2); Potassium 3.5 mmol/L (3.5-5.1); Total Bilirubin 0.6 mg/dL (0.2-1.3); Total Protein 6.7 g/dL (6.3-8.2)
--- NOTE | 2022-04-09 19:05 | XR ---
EXAMINATION TYPE: XR chest 2V DATE OF EXAM: 04/09/2022 6:53 PM COMPARISON: Chest radiographs from 07/24/2021. TECHNIQUE: XR chest 2V Frontal and lateral views of the chest. CLINICAL INDICATION:Female, 62 years old with history of dysrhythmia; FINDINGS: Lungs/Pleura: There is no evidence of pleural effusion, focal consolidation, or pneumothorax. Pulmonary vascularity: Unremarkable. Heart/mediastinum: Cardiomediastinal silhouette is unremarkable. A loop recorder projects over the le ft thorax over the heart. Musculoskeletal: No acute osseous pathology. IMPRESSION: No acute cardiopulmonary disease/process.
[2022-04-09] MEDS ORDERED: NITROGLYCERIN SL TABS 0.4 MG TAB SUBLINGUAL PRN (20:42)
[2022-04-09] MEDS ORDERED: ATORVASTATIN 40 MG TAB PO SCH (23:15)
[2022-04-09] MEDS ORDERED: RIVAROXABAN 20 MG TAB PO SCH (23:15)
[2022-04-09] MEDS ORDERED: traZODone HCL 50 MG TAB PO SCH (23:15)
[2022-04-09] MEDS ORDERED: PANTOPRAZOLE 40 MG TABLET PO SCH (23:15)
[2022-04-09] MEDS ORDERED: CITALOPRAM HYDROBROMIDE 20 MG TAB PO SCH (23:15)
[2022-04-10 07:02] VITALS: RESP 14
[2022-04-10] MEDS ORDERED: AZELASTINE 137MCG/SPRAY NASAL PRN (07:33)
[2022-04-10] MEDS ORDERED: ALPRAZolam 0.25 MG TAB PO PRN (07:33)
[2022-04-10] MEDS ORDERED: NON FORMULARY DRUG (Alendronate Sodium [Fosamax] 70 MG Tablet) PO SCH (07:45)
[2022-04-10 08:38] VITALS: TEMP 97.8
[2022-04-10] MEDS ORDERED: LEVOTHYROXINE 75 MCG TAB PO SCH (09:00)
[2022-04-10] MEDS ORDERED: ASPIRIN 325 MG TAB PO SCH (09:00)
[2022-04-10 09:07] LABS: Chol/HDL Ratio 2.61 Ratio; LDL Cholesterol,Calculated 75.4 mg/dL (0.0-131.0)
--- NOTE | 2022-04-10 09:22 | P.HPIM ---
History of Present Illness please consider this combined H&P and discharge summary This is a pleasant 62 years old female with past medical history of atrial fibrillation, CVA/TIA, gastroesophageal reflux disease and hypothyroidism status post thyroidectomy. Patient is status post loop recorder and presents because of tachycardia and palpitations which started yesterday, she checked her blood pressure was fine but heart rate was 149. She came to emergency room where she fed little lightheadedness but no overt dizziness. Mild headache but no weakness or numbness or blurred vision. Note gastrointestinal complaints, no urinary complaints. No fever. She has chronic cough The PCPs Dr. Garner and cloud operations engineer in [facility] Vitals are reviewed patient was tachycardic on admission with heart rate around 146, Currently heart rate is 50s to 60s. Blood pressure is stable and patient is afebrile. She has unremarkable labs. Savella troponin are negative Chest x-ray: No acute process EKG: Atrial fibrillation's with RVR at a rate of 131 Patient was treated with Cardizem drip at also aspirin Review of Systems Review of systems CONSTITUTIONAL: No fever, no malaise, no fatigue. HEENT: No recent visual problems or hearing problems. Denied any sore throat. CARDIOVASCULAR: No orthopnea, PND, no palpitations, no syncope. PULMONARY: No shortness of breath, no cough, no hemoptysis. GASTROINTESTINAL: No diarrhea, no nausea, no vomiting, no abdominal pain. Normoactive bowel sounds. NEUROLOGICAL: No headaches, no weakness, no numbness. HEMATOLOGICAL: Denies any bleeding or petechiae. GENITOURINARY: Denies any burning micturition, frequency, or urgency. MUSCULOSKELETAL/RHEUMATOLOGICAL: Denies any joint pain, swelling, or any muscle pain. ENDOCRINE: Denies any polyuria or polydipsia. Past Medical History Past Medical History: Atrial Fibrillation, Chest Pain / Angina, CVA/TIA, GERD/Reflux, Thyroid Disorder Additional Past Medical History / Comment(s): Chronic Fatigue, [place], History of Any Multi-Drug Resistant Organisms: None Reported Past Surgical History: Hernia Repair, Orthopedic Surgery Additional Past Surgical History / Comment(s): thyroidedectomy, laparascopy, stress test, LEFT WRIST SX , loop recorder Past Anesthesia/Blood Transfusion Reactions: Postoperative Nausea & Vomiting ( PONV) Additional Past Anesthesia/Blood Transfusion Reaction / Comment(s): "long time to come out" Past Psychological History: Anxiety Smoking Status: Never smoker Past Alcohol Use History: Occasional Past Drug Use History: None Reported - Past Family History Mother Family Medical History: Coronary Artery Disease (CAD), Hyperlipidemia, Hypertension Father Family Medical History: Cancer Medications and Allergies Home Medications Medication Instructions Recorded Confirmed Type ALPRAZolam [Xanax] 0.25 mg PO DAILY PRN 09/30/17 04/09/22 History Citalopram Hydrobromide [CeleXA] 20 mg PO HS 09/30/17 04/09/22 History Ferrous Sulfate [Iron (65 MG 325 mg PO DAILY 09/30/17 04/09/22 History Elemental)] Potassium Citrate [Potassium 10 meq PO Q48H 09/30/17 04/09/22 History Citrate ER] cycloSPORINE 0.05% OPHTH SOLN 1 drop BOTH EYES BID 09/30/17 04/09/22 History [Restasis] Atorvastatin [Lipitor] 40 mg PO HS #30 tablet 05/21/18 04/09/22 Rx Alendronate Sodium [Fosamax] 70 mg PO WE 04/09/22 04/09/22 History Azelastine HCl 137 mcg NASAL DAILY PRN 04/09/22 04/09/22 History Cholecalciferol [Vitamin D3 (25 50 mcg PO DAILY 04/09/22 04/09/22 History Mcg = 1000 Iu)] Cyanocobalamin (Vitamin B-12) 1,000 mcg PO DAILY 04/09/22 04/09/22 History [Vitamin B-12] Fluticasone Nasal [place] [Flonase 1 spray EA NOSTRIL DAILY PRN 04/09/22 04/09/22 History Nasal [place]] L.acidoph,Paracasei, B.lactis 1 cap PO DAILY 04/09/22 04/09/22 History [Probiotic] Levothyroxine Sodium [Synthroid] 75 mcg PO DAILY 04/09/22 04/09/22 History Pantoprazole Sodium [Protonix] 40 mg PO HS 04/09/22 04/09/22 History Rivaroxaban [Xarelto] 20 mg PO HS 04/09/22 04/09/22 History traZODone HCL [Desyrel] 50 mg PO HS 04/09/22 04/09/22 History Allergies Allergy/AdvReac Type Severity Reaction Status Date / Time No Known Allergies Allergy Verified 04/09/22 17:33 Physical Exam Vitals: Vital Signs Temp Pulse Pulse Resp BP BP Pulse Ox 04/10/22 04:00 97.6 F 84 14 106/53 97 04/09/22 23:02 98.1 F 55 L 15 105/62 96 04/09/22 22:18 61 15 115/65 99 04/09/22 18:38 69 18 110/76 96 04/09/22 18:23 126 H 18 119/97 99 04/09/22 17:31 98.1 F 146 H 18 111/78 99 Intake and Output 04/09/22 04/10/22 04/10/22 22:59 06:59 14:59 Intake Total 590 Balance 590 Intake: Intake, IV Titration 50 Amount Diltiazem 125 mg In 50 Sodium Chloride 0.9% 100 ml @ 5 MG/HR 5 mls/hr IV .Q24H [facility] Rx#:[id number] Oral 540 Other: Voiding Method Toilet Weight 63.503 kg 63.503 kg GENERAL: The patient is alert and oriented x3, not in any acute distress. Well developed, well nourished. HEENT: Pupils are round and equally reacting to light. EOMI. No scleral icterus. No conjunctival pallor. Normocephalic, atraumatic. No pharyngeal erythema. No thyromegaly. CARDIOVASCULAR: S1 and S2 present. No murmurs, rubs, or gallops. PULMONARY: Chest is clear to auscultation, no wheezing or crackles. ABDOMEN: Soft, nontender, nondistended, normoactive bowel sounds. No palpable organomegaly. MUSCULOSKELETAL: No joint swelling or deformity. EXTREMITIES: No cyanosis, clubbing, or pedal edema. NEUROLOGICAL: Gross neurological examination did not reveal any focal deficits. SKIN: No rashes. no petechiae. Results CBC & Chem 7: 04/09/22 17:57 04/09/22 17:57 Labs: Abnormal Lab Results - Last 24 Hours (Table) 04/09/22 Range/Units 17:57 Chloride 108 H (98-107) mmol/L Carbon Dioxide 20 L (22-30) mmol/L BUN 27 H (7-17) mg/dL Glucose 111 H (74-99) mg/dL Thrombosis Risk Factor Assmnt - Choose All That Apply Any of the Below Risk Factors Present?: No Other Risk Factors: Yes Each Risk Factor Represents 2 Points: Age 61-74 years Other congenital or acquired thrombophilia - If yes, enter type in comment: No Thrombosis Risk Factor Assessment Total Risk Factor Score: 2 Thrombosis Risk Factor Assessment Level: Low Risk Assessment and Plan Assessment: Atrial fibrillation's with RVR, patient is on Xarelto at Home History of CVA/TIA History of ALLERGIC rhinitis Hypothyroidism History of GERD Hyperlipidemia Plan: This is a pleasant 62 years old female who presents with A. fib and RVR. Continue anticoagulation she does not need more beta cindy or similar drug because she is bradycardic and HR this morning is 48 b/m Cardiologic consult Labs and medication were reviewed.. Continue same treatment. Continue with symptomatic treatment. Resume home medication. i discussed the case with cardiology team and they have cleared her for discharge DVT prophylaxis: Xarelto GI Prophylaxis: Protonix pt will be discharged home today, with instruction provided for her to follow up with her PCP Dr. Garner in 1 week and her cloud operations engineer Dr. Farris in 1 week as well, she confirms she has the contact information
--- NOTE | 2022-04-10 09:30 | P.CRDCN ---
History of Present Illness History of present illness: HISTORY OF PRESENT ILLNESS: This is a 62-year-old female with a past medical history significant for paroxysmal atrial fibrillation, sinus bradycardia, hyperlipidemia, TIA in 2018, and loop recorder insertion in February 2021. Patient used to see Dr. Carbone but now sees Dr. Farris in [place]. We have been asked to see the patient in consultation for afib. Patient examined at the bedside. Patient presented to the hospital with a chief complaint of palpitations. Patient was found to be in atrial fibrillation with RVR. She was started on IV Cardizem. She subsequently converted to sinus mechanism. She is bradycardic with a heart rate in the 50s. Patient reports bradycardia at her baseline when she is in sinus mechanism and hence is not prescribed beta blockers on an outpatient basis. She does report Dr. Carbone recommended a pacemaker in the past, but she received a second opinion from Dr. Farris, who is now her pin inserter regulator. She did have a loop recorder placed in February 2021. She states he placed the loop recorder to "obtain more information before deciding if I needed a pacemaker". She states she has not had many episodes of atrial fibrillation to her knowledge and states the last one she is aware of was in June 2021. * EKG reveals afib with rvr. Telemetry reveals sinus mechanism with bradycardia. * Chest xray negative for acute process. * Laboratory data: WBC 5.1. Hemoglobin 13.2. Platelet count 236. Sodium 140. Potassium 3.5. BUN 27. Creatinine 0.88. Troponin negative 3. TSH 0.641. * Current home cardiac medications include Lipitor 40 mg at night and Xarelto 20 mg at night. REVIEW OF SYSTEMS: At the time of my exam: CONSTITUTIONAL: Denies fever or chills. HEENT: Denies blurred vision, vision changes, or eye pain. Denies hemoptysis CARDIOVASCULAR: Denies chest pain. Denies orthopnea. Denies PND. Denies palpitations RESPIRATORY: Denies shortness of breath. GASTROINTESTINAL: Denies abdominal pain. Denies nausea or vomiting. HEMATOLOGIC: Denies bleeding disorders. GENITOURINARY: Denies any blood in urine. SKIN: Denies pruitis. Denies rash. PHYSICAL EXAM: VITAL SIGNS: Reviewed. GENERAL: Well-developed in no acute distress. HEENT: Head is normocephalic. Pupils are equal, round. Sclerae anicteric. Mucous membranes of the mouth are moist. Neck supple. No JVD or thyromegaly LUNGS: Respirations even and unlabored. Lungs essentially clear to auscultation bilaterally. HEART: Regular rate and rhythm. S1 and S2 heard. ABDOMEN: Soft. Nondistended. Nontender. EXTREMITIES: Normal range of motion. No clubbing or cyanosis. Peripheral pulses intact. No lower extremity edema NEUROLOGIC: Awake and alert. Oriented x 3. ASSESSMENT: Palpitations Paroxysmal atrial for ablation with RVR Sinus bradycardia Hyperlipidemia History of TIA in 2018 History of loop recorder insertion, February 2021 PLAN: Obtain 2-D echo to assess cardiac structure and function Continue anticoagulation with Xarelto Continue home cardiac medications No addition of beta cindy therapy secondary to baseline sinus bradycardia Patient may be discharged home today from a cardiac standpoint and follow up outpatient with her primary pin inserter regulator Nurse practitioner note has been reviewed by physician. Signing provider agrees with the documented findings, assessment, and plan of care. Past Medical History Past Medical History: Atrial Fibrillation, Chest Pain / Angina, CVA/TIA, GERD/Reflux, Thyroid Disorder Additional Past Medical History / Comment(s): Chronic Fatigue, [place], History of Any Multi-Drug Resistant Organisms: None Reported Past Surgical History: Hernia Repair, Orthopedic Surgery Additional Past Surgical History / Comment(s): thyroidedectomy, laparascopy, stress test, LEFT WRIST SX , loop recorder Past Anesthesia/Blood Transfusion Reactions: Postoperative Nausea & Vomiting (PONV) Additional Past Anesthesia/Blood Transfusion Reaction / Comment(s): "long time to come out" Past Psychological History: Anxiety Smoking Status: Never smoker Past Alcohol Use History: Occasional Past Drug Use History: None Reported - Past Family History Mother Family Medical History: Coronary Artery Disease (CAD), Hyperlipidemia, Hypertension Father Family Medical History: Cancer Medications and Allergies Home Medications Medication Instructions Recorded Confirmed Type ALPRAZolam [Xanax] 0.25 mg PO DAILY PRN 09/30/17 04/09/22 History Citalopram Hydrobromide [CeleXA] 20 mg PO HS 09/30/17 04/09/22 History Ferrous Sulfate [Iron (65 MG 325 mg PO DAILY 09/30/17 04/09/22 History Elemental)] Potassium Citrate [Potassium 10 meq PO Q48H 09/30/17 04/09/22 History Citrate ER] cycloSPORINE 0.05% OPHTH SOLN 1 drop BOTH EYES BID 09/30/17 04/09/22 History [Restasis] Atorvastatin [Lipitor] 40 mg PO HS #30 tablet 05/21/18 04/09/22 Rx Alendronate Sodium [Fosamax] 70 mg PO WE 04/09/22 04/09/22 History Azelastine HCl 137 mcg NASAL DAILY PRN 04/09/22 04/09/22 History Cholecalciferol [Vitamin D3 (25 50 mcg PO DAILY 04/09/22 04/09/22 History Mcg = 1000 Iu)] Cyanocobalamin (Vitamin B-12) 1,000 mcg PO DAILY 04/09/22 04/09/22 History [Vitamin B-12] Fluticasone Nasal [place] [Flonase 1 spray EA NOSTRIL DAILY PRN 04/09/22 04/09/22 History Nasal [place]] L.acidoph,Paracasei, B.lactis 1 cap PO DAILY 04/09/22 04/09/22 History [Probiotic] Levothyroxine Sodium [Synthroid] 75 mcg PO DAILY 04/09/22 04/09/22 History Pantoprazole Sodium [Protonix] 40 mg PO HS 04/09/22 04/09/22 History Rivaroxaban [Xarelto] 20 mg PO HS 04/09/22 04/09/22 History traZODone HCL [Desyrel] 50 mg PO HS 04/09/22 04/09/22 History Allergies Allergy/AdvReac Type Severity Reaction Status Date / Time No Known Allergies Allergy Verified 04/09/22 17:33 Physical Exam Vitals: Vital Signs Temp Pulse Pulse Resp BP BP Pulse Ox 04/10/22 08:00 97.8 F 48 L 14 113/56 97 04/10/22 04:00 97.6 F 84 14 106/53 97 04/09/22 23:02 98.1 F 55 L 15 105/62 96 04/09/22 22:18 61 15 115/65 99 04/09/22 18:38 69 18 110/76 96 04/09/22 18:23 126 H 18 119/97 99 04/09/22 17:31 98.1 F 146 H 18 111/78 99 Intake and Output 1004/10/22 04/10/22 22:59 06:59 14:59 Intake Total 590 Balance 590 Intake: Intake, IV Titration 50 Amount Diltiazem 125 mg In 50 Sodium Chloride 0.9% 100 ml @ 5 MG/HR 5 mls/hr IV .Q24H [facility] Rx#:[id number] Oral 540 Other: Voiding Method Toilet Weight 63.503 kg 63.503 kg Results 04/09/22 17:57 04/09/22 17:57 Cardiac Enzymes 04/09/22 04/09/22 04/09/22 Range/Units 17:57 17:57 22:22 AST 31 (14-36) U/L Troponin I <0.012 <0.012 (0.000-0.034) ng/mL 04/10/22 Range/Units 02:36 AST (14-36) U/L Troponin I <0.012 (0.000-0.034) ng/mL Coagulation 04/09/22 Range/Units 17:57 PT 11.0 (9.0-12.0) sec APTT 27.0 (22.0-30.0) sec Lipids 04/10/22 Range/Units 02:36 Triglycerides 83.00 (0.00-149.00) mg/dL Cholesterol 149.00 (0.00-200.00) mg/dL HDL Cholesterol 57.00 (40.00-60.00) mg/dL Cholesterol/HDL Ratio 2.61 Ratio CBC 04/09/22 Range/Units 17:57 WBC 5.1 (3.8-10.6) k/uL RBC 4.40 (3.80-5.40) m/uL Hgb 13.2 (11.4-16.0) gm/dL Hct 38.3 (34.0-46.0) % Plt Count 236 (150-450) k/uL Comprehensive Metabolic Panel 04/09/22 Range/Units 17:57 Sodium 140 (137-145) mmol/L Potassium 3.5 (3.5-5.1) mmol/L Chloride 108 H (98-107) mmol/L Carbon Dioxide 20 L (22-30) mmol/L BUN 27 H (7-17) mg/dL Creatinine 0.88 (0.52-1.04) mg/dL Glucose 111 H (74-99) mg/dL Calcium 9.3 (8.4-10.2) mg/dL AST 31 (14-36) U/L ALT 28 (4-34) U/L Alkaline Phosphatase 83 (38-126) U/L Total Protein 6.7 (6.3-8.2) g/dL Albumin 4.4 (3.5-5.0) g/dL Current Medications Generic Name Dose Route Start Last Admin Trade Name Freq PRN Reason Stop Dose Admin Alprazolam 0.25 mg 04/10/22 07:33 Alprazolam 0.25 Mg Tab PO DAILY PRN Anxiety Atorvastatin Calcium 40 mg 04/09/22 23:15 04/09/22 23:23 Atorvastatin 40 Mg Tab PO 40 mg HS [facility] Administration Azelastine HCl 1 spray 04/10/22 07:33 Azelastine 137mcg/Williams NASAL DAILY PRN Allergy Symptoms Citalopram Hydrobromide 20 mg 04/09/22 23:15 04/09/22 23:23 Citalopram Hydrobromide 20 Mg Tab PO 20 mg HS [facility] Administration Levothyroxine Sodium 75 mcg 04/10/22 09:00 Levothyroxine 75 Mcg Tab PO DAILY@0630 [facility] Nitroglycerin 0.4 mg 04/09/22 20:42 Nitroglycerin Sl Tabs 0.4 Mg Tab SUBLINGUAL Q5M PRN Chest Pain Pantoprazole Sodium 40 mg 04/09/22 23:15 04/09/22 23:23 Pantoprazole 40 Mg Tablet PO 40 mg HS [facility] Administration Rivaroxaban 20 mg 04/09/22 23:15 04/09/22 23:23 Rivaroxaban 20 Mg Tab PO 20 mg HS [facility] Administration Protocol Trazodone HCl 50 mg 04/09/22 23:15 04/09/22 23:23 Trazodone Hcl 50 Mg Tab PO 50 mg HS [facility] Administration Intake and Output 04/09/22 04/10/22 04/10/22 22:59 06:59 14:59 Intake Total 590 Balance 590 Intake: Intake, IV Titration 50 Amount Diltiazem 125 mg In 50 Sodium Chloride 0.9% 100 ml @ 5 MG/HR 5 mls/hr IV .Q24H [facility] Rx#:[id number] Oral 540 Other: Voiding Method Toilet Weight 63.503 kg 63.503 kg 04/09/22 17:57 04/09/22 17:57
[2022-04-10 12:28] VITALS: BP 106/61; PULSE 65
--- NOTE | 2022-04-11 11:40 | CA ---
Transthoracic Echo Report Name: Dana Blanchard Age: 62 Gender: F : 1960 Exam Date: 04/10/2022 09:29 Exam Location: [facility] Ht (in): 64 Wt (lb): 140 Ordering Physician: Lisa Jim Attending/Referring Phys: [id number], Diandra Cement Tile Maker Sulema Watts RDCS Procedure CPT: Indications: LV function Cardiac Hx: Technical Quality: Fair Contrast 1: Total Dose (mL): Contrast 2: Total Dose (mL): MEASUREMENTS (Male / Female) Normal Values 2D ECHO LV Diastolic Diameter PLAX 3.6 cm 4.2 - 5.9 / 3.9 - 5.3 cm LV Systolic Diameter PLAX 2.5 cm IVS Diastolic Thickness 1.2 cm 0.6 - 1.0 / 0.6 - 0.9 cm LVPW Diastolic Thickness 1.3 cm 0.6 - 1.0 / 0.6 - 0.9 cm LV Relative Wall Thickness 0.7 RV Internal Dim ED PLAX 3.3 cm LA Volume 61.6 cm??? 18 - 58 / 22 - 52 cm??? M-MODE Aortic Root Diameter MM 3.2 cm LA Systolic Diameter MM 4.8 cm LA Ao Ratio MM 1.5 MV E Point Septal Separation 0.2 cm AV Cusp Separation MM 1.9 cm DOPPLER AV Peak Velocity 101.6 cm/s AV Peak Gradient 4.1 mmHg LVOT Peak Velocity 99.6 cm/s LVOT Peak Gradient 4.0 mmHg MV Area PHT 3.3 cm??? Mitral E Point Velocity 78.8 cm/s Mitral A Point Velocity 48.0 cm/s Mitral E to A Ratio 1.6 MV Deceleration Time 228.1 ms TR Peak Velocity 208.2 cm/s TR Peak Gradient 17.3 mmHg Right Ventricular Systolic Press 21.5 mmHg FINDINGS Left Ventricle Mildly increased left ventricular wall thickness. Normal left ventricular systolic function with no obvious regional wall motion abnormalities. Left ventricular ejection fraction is estimated at 55-60 %. Right Ventricle Normal right ventricular size and function. Right ventricular systolic pressure within normal limits. Right Atrium Normal right atrial size. Left Atrium Mildly increased left atrial volume. Mildly increased left atrial area. Mitral Valve Structurally normal mitral valve. Mild mitral annular calcification. Mild mitral regurgitation. Aortic Valve Trileaflet aortic valve. Aortic valve sclerosis. No aortic stenosis. No aortic regurgitation. Tricuspid Valve Structurally normal tricuspid valve. Mild tricuspid regurgitation. Pulmonic Valve Trace pulmonic regurgitation. Pericardium No pericardial effusion. Aorta Normal size aortic root and proximal ascending aorta. CONCLUSIONS Normal left ventricular ejection fraction 55-60% Mild increased left ventricular wall thickness Mild increased left atrial size Mild mitral regurgitation Mild tricuspid regurgitation No pericardial effusion Previewed by: Dr. Ezequiel Mendez DO (Electronically Signed) Final Date: 11 April 2022 11:39
== END 2022-04-10 13:11 | disposition home or self-care (01) | DRG 310 ==
LOC: EC 17:25 → 3SCARD 20:42
PROVIDERS: ADMIT Hospitalist; ATTEND Hospitalist
DX: I48.92 Unspecified atrial flutter (principal); E89.0 Postprocedural hypothyroidism; I08.3 Combined rheumatic disorders of mitral, aortic and tricuspid valves; E78.5 Hyperlipidemia, unspecified; I48.0 Paroxysmal atrial fibrillation; R00.1 Bradycardia, unspecified; J30.9 Allergic rhinitis, unspecified; K21.9 Gastro-esophageal reflux disease without esophagitis; R05.3 Chronic cough; R51.9 Headache, unspecified; Z79.83 Long term (current) use of bisphosphonates; Z79.899 Other long term (current) drug therapy; Z79.890 Hormone replacement therapy; Z79.01 Long term (current) use of anticoagulants; Z86.73 Personal history of transient ischemic attack (TIA), and cerebral infarction without residual deficits; Z95.818 Presence of other cardiac implants and grafts; Z28.310 Unvaccinated for COVID-19
CPT/HCPCS: 36415; 71046; 80053; 80061; 83735; 84443; 84484; 85025; 85610; 85730; 93005; 93306; 96374; 96375; 99291

== ENCOUNTER → 2022-08-23 | Outpatient (CLI) | payer BC | END | disposition home or self-care (01) | LOC: LABWHC1 10:57 | PROVIDERS: ATTEND Otolaryngology | DX: J30.89 Other allergic rhinitis (principal) | CPT/HCPCS: 36415 ==

== ENCOUNTER → 2022-10-10 | Outpatient (CLI) | payer BC ==
--- NOTE | 2022-10-10 12:01 | P.PN ---
Subjective DATE: 10/10/2022 FOLLOW UP VISIT. Patient with obstructive sleep apnea hypopnea syndrome return to sleep center for follow-up visit. Information from previous visit have been reviewed. Patient is using PAP equipment every night for the whole night, getting PAP supplies in time. The patient does not have significant problems with the mask, PAP unit and humidification. [place] sleepiness scale is 5, which is normal. I checked information from PAP unit. PAP unit pressure 5-12, average 10 cm H2O. Usage is 100 % for more then 4 hours, average 7.3 hours per night. Leak is 14 l/m, which is in acceptable range. Apnea Hypopnea Index is 1.6, which is normal. MEDICATIONS:1. Synthroid 75 g once a day 2. Lipitor 40 mg once a day 3. Xarelto 20 mg once a day 4. Citalopram 20 mg once a day 5. Trazodone 50 mg as needed 6. Protonix 40 mg once a day 7. Flovent 8. Ventolin During physical exam: GENERAL: A pleasant patient without any distress. VITAL SIGNS: BP 100/65, HR 50, RR 12 , weight 141, temperature 97.2, oxygen saturation at room air 97 % . HEENT: PERRLA, EOMI.low position of soft palate, Mallapati 3 . NECK: Supple. No JVD. LUNGS: Clear to percussion and to auscultation. Good air exchange. No wheezing or rhonchi. HEART: S1, S2 regular. ABDOMEN: Soft and nontender.[] EXTREMITIES: No clubbing or cyanosis. UROGYNAECOLOGIST: Awake, alert, and oriented x3. No focal deficit. Impressions: 1. Obstructive sleep apnea-hypopnea syndrome. Patient demonstrated great compliance with treatment, benefiting from treatment. 2. History of arterial fibrillation no recent episodes. 3. Acid reflux 4. History of anxiety. 5. History of iron deficiency anemia. 6. Hypothyroidism. 7. History of TIA. 8. ALLERGY to mold, weed pollen and cats. Plan: 1. Continue using PAP equipment every night for the whole night. 2. To change air filter at least 1-2 times per month. 3. PAP unit should stay lower then position of the head. 4. Advised patient to remove all remaining water from humidifier canister daily and make it dry after each usage. Refill canister with fresh distilled water before each usage. 5. Sleep hygiene with regular time in bed for at least 8 hours. 6. Precautions related to driving. No driving if feel any sleepiness. 7. I will maintain prescription for PAP supplies including mask, tube, filters. 8. Follow up visit in 6 months or earlier if patient has any problems. 9. Watching weight. Thank you very much for allowing me to participate in the management of your patient. Kuldeep Tucker MD, PhD, FAASM. Diplomat of [employer], Sleep Medicine Board by [employer] Recooperer of [facility] [place]
== END ==
LOC: SLEEP 11:16
PROVIDERS: ATTEND Internal Medicine
DX: G47.33 Obstructive sleep apnea (adult) (pediatric) (principal); E03.9 Hypothyroidism, unspecified; F41.9 Anxiety disorder, unspecified; K21.9 Gastro-esophageal reflux disease without esophagitis; Z79.01 Long term (current) use of anticoagulants; Z79.51 Long term (current) use of inhaled steroids; Z79.899 Other long term (current) drug therapy; Z86.73 Personal history of transient ischemic attack (TIA), and cerebral infarction without residual deficits; Z86.718 Personal history of other venous thrombosis and embolism; Z99.89 Dependence on other enabling machines and devices; Z98.890 Other specified postprocedural states; Z79.890 Hormone replacement therapy; F17.200 Nicotine dependence, unspecified, uncomplicated
CPT/HCPCS: 99212

== ENCOUNTER → 2022-11-26 | Outpatient (CLI) | payer BC ==
[2022-11-26 20:11] LABS: ALT 27 U/L; AST 23 U/L; Albumin 4.2 d/dL; Alkaline Phosphatase 61 U/L; Blood Urea Nitrogen 20.5 mg/dL; C Reactive Protein <0.30 mg/dL; Calcium 9.3 mg/dL; Carbon Dioxide 23.6 mmol/L; Chloride 109 mmol/L; Glucose 99 mg/dL; Potassium 3.8 mmol/L; Sodium 144 mmol/L; Total Bilirubin 0.3 mg/dL; Total Protein 6.2 d/dL
[2022-11-27 01:28] LABS: Basophils # (A) 0.04 X 10*3/uL; Basophils % (A) 0.8 %; Eosinophils # (A) 0.13 X 10*3/uL; Eosinophils % (A) 2.5 %; HCT 37.2 %; HGB 11.6 d/dL; Lymphocytes # (A) 1.98 X 10*3/uL; Lymphocytes % (A) 37.5 %; MCH 28.7 pg; MCHC 31.2 d/dL; MCV 92.1 FL; Mean Platelet Volume 10.5 FL; Monocytes % (A) 7.6 %; NRBC Per 100 WBC 0 X 10*3/uL; Neutrophils # (A) 2.72 X 10*3/uL; Neutrophils % (A) 51.4 %; Platelet Count 246 X 10*3/uL; RBC 4.04 X 10*6/uL; RDW 13.2 %; WBC 5.28 X 10*3/uL
[2022-11-27 01:54] LABS: Gliadin AB IgA, Deaminated Negative; Gliadin AB IgA, Unit <0.5 U/mL; Gliadin AB IgG, Deaminated Negative; Gliadin AB IgG, Unit <0.4 U/mL
[2022-11-27 04:08] LABS: Erythrocyte Sedimentation Rate 5 mm/Hr
== END | disposition home or self-care (01) ==
LOC: LABWHC1 14:03
PROVIDERS: ATTEND Internal Medicine Gastroenterology
DX: R19.4 Change in bowel habit (principal)
CPT/HCPCS: 36415; 80053; 83516; 85025; 85652; 86140

== ENCOUNTER 2023-01-03 11:33 | Day surgery (SDC) | payer BC ==
[2023-01-01 13:54] VITALS: BMI 24.0
[2023-01-03] MEDS ORDERED: LACTATED RINGERS 1,000 ML IV SCH (12:06)
[2023-01-03 12:28] VITALS: TEMP 97.9
[2023-01-03] MEDS ORDERED: PROPOFOL 10 MG/ML 20 ML VIAL IV ONE (13:25)
--- NOTE | 2023-01-03 13:40 | P.PCN ---
Date of Procedure: 01/03/23 Procedure(s) Performed: BRIEF HISTORY: Patient is a 62-year-old pleasant at female scheduled for an elective colonoscopy as a part of screening for colon cancer. PROCEDURE PERFORMED: Colonoscopy. PREOPERATIVE DIAGNOSIS: Screening for colon cancer. IV sedation per Anesthesia. PROCEDURE: After informed consent was obtained, the patient, was brought into the endoscopy unit. IV sedation was administered by Anesthesia under continuous monitoring. Digital rectal examination was normal. Initially the Olympus CF-160 flexible video colonoscope was then inserted in the rectum, gradually advanced into the cecum without any difficulty. Careful examination was performed as the scope was gradually being withdrawn. Ileocecal valve and the appendiceal orifice were visualized and appeared normal. Prep was excellent. Mucosa of the cecum, ascending colon, transverse colon, descending colon, sigmoid colon, and rectum appeared normal. Retroflexion was performed in the rectum and no lesions were seen. Scattered sigmoid diverticulosis. The patient tolerated the procedure well. IMPRESSION: Normal-appearing colon from rectum to cecum with no evidence of colorectal neoplasia . Scattered sigmoid diverticula RECOMMENDATIONS: Findings of this examination were discussed with the patient as well as her family. She was advised to be a high-fiber diet and take fiber supplements a regular basis. Recommend repeat screening colonoscopy in 10 years..
[2023-01-03 13:50] VITALS: RESP 17
[2023-01-03 14:04] VITALS: BP 134/59; PULSE 54
== END 2023-01-03 14:24 | disposition home or self-care (01) ==
LOC: ORWHC2ENDO 11:33
PROVIDERS: ATTEND Internal Medicine Gastroenterology
DX: Z12.11 Encounter for screening for malignant neoplasm of colon (principal); K57.30 Diverticulosis of large intestine without perforation or abscess without bleeding; I48.91 Unspecified atrial fibrillation; E78.5 Hyperlipidemia, unspecified; E07.9 Disorder of thyroid, unspecified; F41.9 Anxiety disorder, unspecified; K21.9 Gastro-esophageal reflux disease without esophagitis; Z86.73 Personal history of transient ischemic attack (TIA), and cerebral infarction without residual deficits; Z79.01 Long term (current) use of anticoagulants; Z79.890 Hormone replacement therapy; Z79.899 Other long term (current) drug therapy
CPT/HCPCS: 45378; J2704

== ENCOUNTER → 2023-02-12 | Outpatient (CLI) | payer MEDICARE ==
--- NOTE | 2023-02-13 08:25 | MM ---
Reason for Exam: Screening (asymptomatic). Last mammogram was performed 1 year(s) and 1 month(s) ago. Patient History: Menarche at age 10. Patient has no children. Left ovary removed at age 33. Hysterectomy at age 53. Postmenopausal. Patient used Estrogen for 15 years. Patient used Progesterone for 15 years. Risk Values: Janett 5 year model risk: 1.8%. NCI Lifetime model risk: 7.2%. Prior Study Comparison: 08/27/2019 Bilateral MG screening mammo w/o cad, [facility]. 11/27/2020 Bilateral MG screening mammo w/o cad, [facility]. 01/01/2022 Bilateral MG screening mammo w CAD, [facility]. Tissue Density: The breast tissue is heterogeneously dense. This may lower the sensitivity of mammography. Findings: Analyzed By CAD. There is no suspicious group of microcalcifications or new suspicious mass in either breast. Loop recorder in the left chest. Overall Assessment: Benign, BI-RAD 2 Management: Screening Mammogram of both breasts in 1 year. A clinical breast exam by your physician is recommended on an annual basis and results should be correlated with mammographic findings. Note on Janett scores and lifetime risk: 1. A Janett score greater than 3% is considered moderate risk. If this is the case, consider specialist referral to assess eligibility for a risk reducing agent. If overall lifetime risk for the development of breast cancer is 20% or higher, the patient may qualify for future screening with alternating mammogram and breast MRI. Electronically signed and approved by: Rick Pickett D.O.
== END | disposition home or self-care (01) ==
LOC: RADMAMWWP 14:00
PROVIDERS: ATTEND Obstetrics & Gynecology
DX: Z12.31 Encounter for screening mammogram for malignant neoplasm of breast (principal); Z78.0 Asymptomatic menopausal state
CPT/HCPCS: 77063; 77067

== ENCOUNTER → 2023-04-24 | Outpatient (CLI) | payer MEDICARE ==
--- NOTE | 2023-04-24 12:31 | P.PN ---
Subjective DATE: 04/24/2023 FOLLOW UP VISIT. Patient with obstructive sleep apnea hypopnea syndrome return to sleep center for follow-up visit. Information from previous visit have been reviewed. Patient is using PAP equipment every night for the whole night, getting PAP supplies in time. The patient does not have significant problems with the mask, PAP unit and humidification. [place] sleepiness scale is 5 which is normal. I checked information from PAP unit and discussed it with patient in details. PAP unit pressure 5-12, average 10.7 cm H2O. Usage is 100 % for more then 4 hours, average 7.1 hours per night. Leak is 12 l/m, which is in acceptable range. Apnea Hypopnea Index is 1.2, which is normal. MEDICATIONS:1. Synthroid 75 g once a day 2. Lipitor 40 mg once a day 3. Kocbgwg38 mg once a day 4. Citalopram 20 mg once a day 5. Trazodone 50 mg once a day 6. Protonix 40 mg once a day 7. Flovent 8. Ventolin During physical exam: GENERAL: A pleasant patient without any distress. VITAL SIGNS: BP 117/72, HR 61, RR 16, weight 143.8, temperature 98.4, oxygen saturation at room air 96 % . HEENT: PERRLA, EOMI.low position of soft palate, Mallapati 3 . NECK: Supple. No JVD. LUNGS: Clear to percussion and to auscultation. Good air exchange. No wheezing or rhonchi. HEART: S1, S2 regular. ABDOMEN: Soft and nontender.[] EXTREMITIES: No clubbing or cyanosis. ENGINEER THIRD ASSISTANT: Awake, alert, and oriented x3. No focal deficit. Impressions: 1. Obstructive sleep apnea-hypopnea syndrome. Patient demonstrated great compliance with treatment, benefiting from treatment. 2. History of atrial fibrillation, no recent episodes. 3. History of anxiety. 4. Acid reflux. 5. History of iron deficiency anemia. 6. Hypothyroidism. 7. ALLERGY to mold, cats and pollen. 8. History of TIA. Plan: 1. Continue using PAP equipment every night for the whole night. Prescription to replace CPAP unit 2. To change air filter at least 1-2 times per month. 3. PAP unit should stay lower then position of the head. 4. Advised patient to remove all remaining water from humidifier canister daily and make it dry after each usage. Refill canister with fresh distilled water before each usage. 5. Sleep hygiene with regular time in bed for at least 8 hours. 6. Precautions related to driving. No driving if feel any sleepiness. 7. I will maintain prescription for PAP supplies including mask, tube, filters. 8. Watching weight. 9. Follow up visit in 6 months or earlier if patient has any problems. Thank you very much for allowing me to participate in the management of your patient. Kuldeep Tucker MD, PhD, FAASM. Diplomat of [place] [employer], Sleep Medicine Board by [place] [employer] Inspector Conveyor Line of [facility] [place]
== END ==
LOC: 3 N SLEEP 11:14
PROVIDERS: ATTEND Internal Medicine
DX: G47.33 Obstructive sleep apnea (adult) (pediatric) (principal); I48.91 Unspecified atrial fibrillation; F41.9 Anxiety disorder, unspecified; K21.9 Gastro-esophageal reflux disease without esophagitis; E03.9 Hypothyroidism, unspecified; D50.9 Iron deficiency anemia, unspecified; F17.200 Nicotine dependence, unspecified, uncomplicated; Z91.09 Other allergy status, other than to drugs and biological substances; Z79.899 Other long term (current) drug therapy; Z99.89 Dependence on other enabling machines and devices; Z79.890 Hormone replacement therapy; Z86.73 Personal history of transient ischemic attack (TIA), and cerebral infarction without residual deficits; Z79.01 Long term (current) use of anticoagulants
CPT/HCPCS: 99212

== ENCOUNTER → 2023-07-11 | Outpatient (CLI) | payer MEDICARE ==
--- NOTE | 2023-07-11 16:15 | US ---
EXAMINATION TYPE: US thyroid st tissue head/neck DATE OF EXAM: 07/11/2023 COMPARISON: None CLINICAL INDICATION: Female, 63 years old with history of E89.0 POSTPROCEDURAL HYPOTHYROIDISM; Hx rig ht thyroidectomy. Patient is on synthroid. GLAND SIZE: Right Lobe: Surgically absent. Left Lobe: 2.8 x 0.9 x 0.6 cm Overall Parenchyma: Very heterogeneous. Isthmus Thickness: 0.23 cm NODULES RIGHT: Surgically absent. LEFT: # of nodules measured on left: 0 ISTHMUS: # of nodules measured in the isthmus: 0 Bilateral neck scanned, no evidence of lymphadenopathy. IMPRESSION: Status post right thyroidectomy. The left lobe is very heterogeneous and small suggesting chronic hyp othyroidism. No discrete nodule seen.
== END | disposition home or self-care (01) ==
LOC: RADUSWWP 13:40
PROVIDERS: ATTEND Internal Medicine
DX: E89.0 Postprocedural hypothyroidism (principal); Z90.89 Acquired absence of other organs
CPT/HCPCS: 76536

== ENCOUNTER → 2023-08-12 | Outpatient (CLI) | payer MEDICARE ==
[2023-08-12 17:13] LABS: ALT 32 U/L (8-44); AST 22 U/L (13-35); Albumin 4.7 g/dL (3.8-4.9); Albumin/Globulin Ratio 2.14 Ratio (1.60-3.17); Alkaline Phosphatase 65 U/L (41-126); BUN/Creat Ratio 29.75 Ratio (12.00-20.00); Blood Urea Nitrogen 23.8 mg/dL (9.0-27.0); Calcium 10.1 mg/dL (8.7-10.3); Carbon Dioxide 26.9 mmol/L (21.6-31.8); Chloride 104 mmol/L (96-109); Globulin 2.2 g/dL (1.6-3.3); Glucose 119 mg/dL (70-110); Potassium 3.9 mmol/L (3.5-5.5); Sodium 141 mmol/L (135-145); Total Bilirubin 0.3 mg/dL (0.3-1.2); Total Protein 6.9 g/dL (6.2-8.2)
== END | disposition home or self-care (01) ==
LOC: LABWHC1 13:35
PROVIDERS: ATTEND Internal Medicine
DX: E55.9 Vitamin D deficiency, unspecified (principal); E89.0 Postprocedural hypothyroidism; M81.0 Age-related osteoporosis without current pathological fracture
CPT/HCPCS: 36415; 80053; 82306; 84439; 84443

== ENCOUNTER → 2023-09-03 | Outpatient (CLI) | payer MEDICARE ==
--- NOTE | 2023-09-04 03:41 | CT ---
EXAMINATION TYPE: CT chest wo con DATE OF EXAM: 09/03/2023 COMPARISON: Prior chest CT September 02, 2022 HISTORY: pulmonary fibrosis CT DLP: 685.8 mGycm. Automated Exposure Control for Dose Reduction was Utilized. TECHNIQUE: CT scan of the thorax is performed without IV contrast. High resolution protocol with 1 m m sequences in 10 mm intervals in supine and prone technique including full inspiration and expiratio n. FINDINGS: LUNGS: Mild to moderate linear scarring and/or atelectasis in the bilateral lower lungs is redemonstr ated. No pleural effusion or pneumothorax seen bilaterally. No honeycombing. No bronchiectasis. MEDIASTINUM: Lack of IV contrast and technique are both noted to limit evaluation for mediastinal and especially hilar adenopathy. There are no definitive greater than 1 cm hilar or mediastinal lymph no keren. No cardiomegaly or pericardial effusion is seen. Mild coronary artery calcific aeration proxim al LAD. OTHER: Overlying loop recorder inferior left upper thorax is redemonstrated.. IMPRESSION: [id number] fibrotic changes in the lower lungs redemonstrated. No significant blackwell e from most recent prior CT.
== END | disposition home or self-care (01) ==
LOC: RADCTMAIN 09:26
PROVIDERS: ATTEND Internal Medicine Critical Care Medicine
DX: J84.10 Pulmonary fibrosis, unspecified (principal)
CPT/HCPCS: 71250

== ENCOUNTER → 2023-09-03 | Outpatient (CLI) | payer MEDICARE ==
[2023-09-03 17:24] VITALS: BP 112/66; PULSE 65; RESP 12; TEMP 98.4
--- NOTE | 2023-09-03 17:52 | P.PN ---
Subjective DATE: 09/03/2023 FOLLOW UP VISIT. Patient with obstructive sleep apnea hypopnea syndrome return to sleep center for follow-up visit. Information from previous visit have been reviewed. Patient is using PAP equipment every night for the whole night, getting PAP supplies in time. The patient does not have significant problems with the mask, PAP unit and humidification. [place] sleepiness scale is 5, which is normal. I checked information from PAP unit. PAP unit pressure 5-12, average 10.0 cm H2O. Usage is 97% for more then 4 hours, average 8.2 hours per night. Leak is 5.2 l/m, which is in acceptable range. Apnea Hypopnea Index is 0.6, which is normal. MEDICATIONS:1. Synthroid 75 mcg once a day 2. Lipitor 40 mg once a day 3. Xarelto 20 mg once a day 4. Lexapro 20 mg once a day 5. Trazodone 50 mg once a day 6. Diltiazem 90 mg as needed 7. Protonix 40 mg once a day 8. Flovent During physical exam: GENERAL: A pleasant patient without any distress. VITAL SIGNS: Please see below. HEENT: PERRLA, EOMI.low position of soft palate, Mallapati 3 . NECK: Supple. No JVD. LUNGS: Clear to percussion and to auscultation. Good air exchange. No wheezing or rhonchi. HEART: S1, S2 regular. ABDOMEN: Soft and nontender.[] EXTREMITIES: No clubbing or cyanosis. HOTBED TRANSFER OPERATOR: Awake, alert, and oriented x3. No focal deficit. Impressions: 1. Obstructive sleep apnea-hypopnea syndrome. Patient demonstrated great compliance with treatment, benefiting from treatment. 2. History of anxiety. 3. History of atrial fibrillation, no recent episodes. 4. Acid reflux. 5. History of iron deficiency anemia. 6. History of TIA. 7. Hypothyroidism. 8. Allergy to cats, pollen and mold. Plan: 1. Continue using PAP equipment every night for the whole night. 2. To change air filter at least 1-2 times per month. 3. PAP unit should stay lower then position of the head. 4. Advised patient to remove all remaining water from humidifier canister daily and make it dry after each usage. Refill canister with fresh distilled water before each usage. 5. Sleep hygiene with regular time in bed for at least 8 hours. 6. Precautions related to driving. No driving if feel any sleepiness. 7. I will maintain prescription for PAP supplies including mask, tube, filters. 8. Follow up visit in 6 months or earlier if patient has any problems. 9. Watching weight. Thank you very much for allowing me to participate in the management of your patient. Kuldeep Tucker MD, PhD, FAASM. Diplomat of [place] [employer], Sleep Medicine Board by [place] [employer] Violin Restorer of [facility] [place] Objective - Vital Signs Vital signs: Vital Signs Temp 98.4 F 09/03/23 16:53 Pulse 65 09/03/23 16:53 Resp 12 09/03/23 16:53 BP 112/66 09/03/23 16:53 Pulse Ox 98 09/03/23 16:53 FiO2 Intake & Output 09/02/23 09/03/23 09/03/23 18:59 06:59 18:59 Weight 65.771 kg
== END ==
LOC: 3 N SLEEP 16:20
PROVIDERS: ATTEND Internal Medicine
DX: G47.33 Obstructive sleep apnea (adult) (pediatric) (principal); F41.9 Anxiety disorder, unspecified; E03.9 Hypothyroidism, unspecified; I48.91 Unspecified atrial fibrillation; J30.81 Allergic rhinitis due to animal (cat) (dog) hair and dander; K21.9 Gastro-esophageal reflux disease without esophagitis; F17.200 Nicotine dependence, unspecified, uncomplicated; Z79.01 Long term (current) use of anticoagulants; Z99.89 Dependence on other enabling machines and devices; Z91.09 Other allergy status, other than to drugs and biological substances; Z91.048 Other nonmedicinal substance allergy status; Z79.51 Long term (current) use of inhaled steroids; Z79.890 Hormone replacement therapy; Z86.73 Personal history of transient ischemic attack (TIA), and cerebral infarction without residual deficits; Z79.899 Other long term (current) drug therapy
CPT/HCPCS: 99212

== ENCOUNTER → 2024-02-17 | Outpatient (CLI) | payer MEDICARE ==
--- NOTE | 2024-02-24 09:49 | MM ---
Reason for Exam: Screening (asymptomatic). Last screening mammogram was performed 12 month(s) ago. Patient History: Menarche at age 10. Patient has no children. Left ovary removed at age 53. Right ovary removed at age 53. Hysterectomy at age 53. Postmenopausal. Patient used Estrogen for 15 years. Patient used Progesterone for 15 years. Risk Values: Janett 5 year model risk: 1.9%. NCI Lifetime model risk: 6.7%. Prior Study Comparison: 11/27/2020 Bilateral MG screening mammo w/o cad, [facility]. 01/01/2022 Bilateral MG screening mammo w CAD, [facility]. 02/12/2023 Bilateral MG 3D screening mammo w/cad, [facility]. Tissue Density: The breasts are heterogeneously dense, which may obscure small masses. Findings: Analyzed By CAD. There is no suspicious group of microcalcifications or new suspicious mass in either breast. Metallic device overlying The left breast limits portions of the breast. Chronic nodularity stable. Benign-appearing lymph node in the axilla. Overall Assessment: Benign, BI-RAD 2 Management: Screening Mammogram of both breasts in 1 year. . Patient should continue monthly self-breast exams. A clinical breast exam by your physician is recommended on an annual basis. This exam should not preclude additional follow-up of suspicious palpable abnormalities. Note on Janett scores and lifetime risk: 1. A Janett score greater than 3% is considered moderate risk. If this is the case, consider specialist referral to assess eligibility for a risk reducing agent. 2. If overall lifetime risk for the development of breast cancer is 20% or higher, the patient may qualify for future screening with alternating mammogram and breast MRI. Electronically signed and approved by: Wilman Gallego M.D. Radiologis
== END | disposition home or self-care (01) ==
LOC: RADMAMWWP 14:49
PROVIDERS: ATTEND Family Medicine
DX: Z12.31 Encounter for screening mammogram for malignant neoplasm of breast
CPT/HCPCS: 77063; 77067

== ENCOUNTER → 2024-03-19 | Outpatient (CLI) | payer MEDICARE ==
--- NOTE | 2024-03-19 18:57 | BD ---
EXAMINATION TYPE: Axial Bone Density DATE OF EXAM: 03/19/2024 CLINICAL HISTORY: 64 years old Female. ICD-10 CODE: M81.0 AGE-RELATED OSTEOPOROSIS W/O CURRENT PATHO LO Height: 63 Weight: 142.2 FRAX RISK QUESTIONS: Alcohol (3 or more units per day): no Family History (Parent hip fracture): no Glucocorticoids (More than 3mos): no (Ex: prednisone, prednisolone, methylprednisolone, dexamethasone, and hydrocortisone). History of Fracture in Adulthood: wrist, toe Secondary Osteoporosis: 1. Type 1 Diabetes: no 2. Hyperthyroidism: no 3. Menopause before 45: yes 4. Malnutrition: no 5. Chronic liver disease: no Rheumatoid Arthritis: no Current Tobacco Use: no RISK FACTORS HISTORY OF: Hip Fracture (Right/Left): no Spine Fracture: no History of Wrist Fracture: Lt Wrist When: Adult Surgery to Spine/Hip(right/left)/Wrist (right/left): no MEDICATIONS: Thyroid Medications: Synthroid How Long: past 10 years Osteoporosis Medications: yes, once weekly How Long: past 4 years EXAM MEASUREMENTS: Bone mineral densitometry was performed using the [facility]. Bone mineral density as measured about the Lumbar spine is: ----- L1-L4(G/cm2): 1.438 T Score Values are as follows: ----- L1: 1.3 ----- L2: 2.1 ----- L3: 2.9 ----- L4: 2.0 ----- L1-L4: 2.1 Z Score Values are as follows: ----- L1: 2.9 ----- L2: 3.7 ----- L3: 4.5 ----- L4: 3.6 ----- L1-L4: 3.8 Bone mineral density has: increased 0.8 % since study of: 01/01/2022 Bone mineral density about the R hip (g/cm2): 0.877 Bone mineral density about the L hip (g/cm2): 0.857 T Score values are as follows: -----R Neck: -0.8 -----L Neck: -0.9 -----R Total: -1.0 -----L Total: -1.2 Z Score values are as follows: -----R Neck: 0.7 -----L Neck: 0.6 -----R Total: 0.2 -----L Total: 0.1 Bone mineral density has: increased 5.1 % since study of: 01/01/2022 FRAX%s: The graph provided illustrates a 13.5% chance for a major osteoporotic fx and a 1.0% chance f or the hips probability for fx in 10 years time. IMPRESSION: Normal (Values between +1 and -1 indicate normal bone mass). Consider repeating this study in 5 year s or sooner if there is some new clinical indication. NOTE: T-SCORE=SD OF THE YOUNG ADULT MEAN. [facility], , 03/19/2024 6:54 PM
== END | disposition home or self-care (01) ==
LOC: RADBDWWP 14:58
PROVIDERS: ATTEND Family Medicine
DX: M81.0 Age-related osteoporosis without current pathological fracture (principal)
CPT/HCPCS: 77080

== ENCOUNTER → 2024-03-24 | Outpatient (CLI) | payer MEDICARE ==
[2024-03-24 16:53] VITALS: BP 102/61; PULSE 66; RESP 16; TEMP 97.9
--- NOTE | 2024-03-24 18:05 | P.PROGSL ---
Subjective DATE: 03/24/2024 FOLLOW UP VISIT. Patient with obstructive sleep apnea hypopnea syndrome return to sleep center for follow-up visit. Information from previous visit have been reviewed. Patient is using PAP equipment every night for the whole night, getting PAP supplies in time. The patient does not have significant problems with the mask, PAP unit and humidification. [place] sleepiness scale is 5, which is normal. I checked information from PAP unit. PAP unit pressure 5-12, average 9.8 cm H2O. Usage is 100% for more then 4 hours, average 7.6 hours per night. Leak is perfect 0 l/m. Apnea Hypopnea Index is also perfect 0.2. MEDICATIONS have been reviewed, please see below. During physical exam: GENERAL: A pleasant patient without any distress. VITAL SIGNS: Please see below, weight is 144 lbs. HEENT: PERRLA, EOMI.low position of soft palate, Mallapati 3. NECK: Supple. No JVD. LUNGS: Clear to percussion and to auscultation. Good air exchange. No wheezing or rhonchi. HEART: S1, S2 regular. ABDOMEN: Soft and nontender.[] EXTREMITIES: No clubbing or cyanosis. NEEDLE FELT MAKING MACHINE OPERATOR: Awake, alert, and oriented x3. No focal deficit. Impressions: 1. Obstructive sleep apnea-hypopnea syndrome. Patient demonstrated great compliance with treatment, benefiting from treatment. 2. History of atrial fibrillation. 3. History of anxiety. 4. Acid reflux. 5. History of TIA. 6. Allergy to cats, pollen and mold. 7. History of iron deficiency anemia. 8. Hypothyroidism. Plan: 1. Continue using PAP equipment every night for the whole night. 2. Sleep hygiene with regular time in bed for at least 7.5-8 hours 3. PAP unit should stay lower then position of the head. 4. Advised patient to remove all remaining water from humidifier canister daily and make it dry after each usage. Refill canister with fresh distilled water before each usage. 5. Watching weight. 6. Precautions related to driving. No driving if feel any sleepiness. 7. I will maintain prescription for PAP supplies including mask, tube, filters. 8. Follow up visit in 8 months or earlier if patient has any problems. Thank you very much for allowing me to participate in the management of your patient. Kuldeep Tucker MD, PhD, FAASM. Diplomat of [place] [employer], Sleep Medicine Board by [place] [employer] Segment Assembler of [facility] [place] cc: Geovani Garner DO Objective - Vital Signs Vital Signs: Vital Signs Temp 97.9 F 03/24/24 16:34 Pulse 66 03/24/24 16:34 Resp 16 03/24/24 16:34 BP 102/61 03/24/24 16:34 Pulse Ox 96 03/24/24 16:34 FiO2 Intake & Output 03/23/24 03/24/24 03/24/24 18:59 06:59 18:59 Weight 65.317 kg Home Medications: Home Medications Medication Instructions Recorded Confirmed Type ALPRAZolam [Xanax] 0.25 mg PO DAILY PRN 09/30/17 09/03/23 History Citalopram Hydrobromide [CeleXA] 20 mg PO HS 09/30/17 09/03/23 History Ferrous Sulfate [Iron (65 MG 325 mg PO DAILY 09/30/17 09/03/23 History Elemental)] cycloSPORINE 0.05% OPHTH SOLN 1 drop BOTH EYES BID 09/30/17 09/03/23 History [Restasis] Atorvastatin [Lipitor] 40 mg PO HS #30 tablet 05/21/18 03/24/24 Rx Alendronate Sodium [Fosamax] 70 mg PO WE 04/09/22 09/03/23 History Azelastine HCl [Astelin Nasal 137 mcg NASAL DAILY PRN 04/09/22 09/03/23 History [place]] Cholecalciferol [Vitamin D3 (25 50 mcg PO DAILY 04/09/22 09/03/23 History Mcg = 1000 Iu)] Cyanocobalamin (Vitamin B-12) 1,000 mcg PO DAILY 04/09/22 09/03/23 History [Vitamin B-12] L.acidoph,Paracasei, B.lactis 1 cap PO DAILY 04/09/22 09/03/23 History [Probiotic] Levothyroxine Sodium [Synthroid] 75 mcg PO DAILY 04/09/22 03/24/24 History Pantoprazole Sodium [Protonix] 40 mg PO HS 04/09/22 03/24/24 History Rivaroxaban [Xarelto] 20 mg PO HS 04/09/22 03/24/24 History traZODone HCL [Desyrel] 50 mg PO HS 04/09/22 03/24/24 History Fluticasone Propionate [Flovent 1 inhalation PO DAILY PRN 01/01/23 09/03/23 History Hfa 220 mcg] dilTIAZem HCL [Cardizem] 90 mg PO DAILY PRN 01/01/23 09/03/23 History
== END ==
LOC: 3 N SLEEP 15:53
PROVIDERS: ATTEND Internal Medicine
CPT/HCPCS: 99212

== ENCOUNTER → 2024-03-30 | Outpatient (CLI) | payer MEDICARE ==
--- NOTE | 2024-03-30 11:42 | CT ---
INDICATION: Patient age:Female; 64 years old; Reason for study: J84.10 PULMONARY FIBROSIS; PHH. COMPARISON: CT chest 09/03/2023 TECHNIQUE: Multiple thin axial images were obtained through the chest at selected intervals. Prone and supine in spiratory along with supine expiratory images were submitted for review. Please note that due to inte rval acquisition images as defined by high-resolution CT protocol the entire lung parenchyma is not e valuated, therefore small nodular densities may not be visualized. Evaluation of vascular structures , viscera and lymphatics is limited due to lack of intravenous contrast administration. One or more C T dose reduction strategies were utilized during this examination. Total DLP 735.40 mGycm. FINDINGS: LUNGS: Minimal biapical pleural-parenchymal scarring. There is no evidence of significant groundglass opacity, honeycombing or architectural distortion in the lungs. No bronchiectasis. Stable scattered bibasilar mild to moderate regions of linear scarring. No acute area of infiltrative or consolidative change. LARGE AIRWAYS: Central airways are patent. No dynamic airway collapse on expiratory imaging. PLEURA: No pleural effusion or thickening. HEART AND PERICARDIUM: Heart is normal in size. There is no pericardial effusion. Mild coronary calci fication of the proximal LAD. MEDIASTINUM AND MOLLY: No mediastinal or hilar lymphadenopathy or soft tissue mass. VESSELS: The thoracic aorta is normal in course and caliber. CHEST WALL AND DIAPHRAGM: Loop recorder within the left anterior chest wall. LOWER NECK: Normal. UPPER ABDOMEN: Small hiatal hernia. MUSCULOSKELETAL: No acute fracture. IMPRESSION: [id number] bibasilar fibrotic changes redemonstrated. No significant change from most recent p rior CT. [facility], , 03/30/2024 11:39 AM
== END | disposition home or self-care (01) ==
LOC: RADCTMAIN 10:57
PROVIDERS: ATTEND Internal Medicine Critical Care Medicine
DX: J84.10 Pulmonary fibrosis, unspecified (principal)
CPT/HCPCS: 71250

== ENCOUNTER → 2024-08-17 | Outpatient (CLI) | payer MEDICARE ==
[2024-08-17 15:19] LABS: ALT 28 U/L (8-44); AST 24 U/L (13-35); Albumin 4.4 g/dL (3.8-4.9); Alkaline Phosphatase 63 U/L (41-126); Calcium 9.3 mg/dL (8.7-10.3); Carbon Dioxide 23.1 mmol/L (21.6-31.8); Chloride 110 mmol/L (96-109); Glucose 90 mg/dL (70-110); Potassium 4.1 mmol/L (3.5-5.5); Sodium 143 mmol/L (135-145); T4, Free (Free Thyroxine) 1.23 ng/dL (0.80-1.80); Total Bilirubin 0.5 mg/dL (0.3-1.2); Total Protein 6.4 g/dL (6.2-8.2)
== END | disposition home or self-care (01) ==
LOC: LABWHC1 11:12
PROVIDERS: ATTEND Family Medicine
DX: E89.0 Postprocedural hypothyroidism (principal); M81.0 Age-related osteoporosis without current pathological fracture; K21.9 Gastro-esophageal reflux disease without esophagitis; R73.9 Hyperglycemia, unspecified; R00.1 Bradycardia, unspecified
CPT/HCPCS: 36415; 80053; 83036; 84439; 84443